=== PATIENT | male | born 1980 | race Caucasian/White ===

== ENCOUNTER 2022-01-15 11:27 | Observation (INO) | payer BC, SELFPAY ==
[2022-01-15] VITALS (21 sets, daily range): BP systolic 105–143; BP diastolic 64–109; PULSE 97–117; RESP 16–20; TEMP 36.4–36.8; O2SAT 92–97; BMI 40.6; BMI 41.2
--- OUTSIDE RECORDS SUMMARY | 2022-01-15 12:22 | XMS_ITS ---
:1980 Author Care Team Providers Name Role Phone Jerry Dale Primary Care Provider Unavailable Allergies None recorded. Medications Name Status Start Date Stop Date ? ? accu-chek kit guide Active ? Not availabl e Accu-Chek Fastclix Lancet Drum Active ? N ot available Accu-Chek Guide L1-L2 Control Solution Active ? Not available Accu-Chek Guide test strips Active ? Not available atorvastatin 40 mg tablet Active ? Not av ailable cephalexin 500 mg capsule Active ? Not av ailable Levemir FlexTouch U-100 Insulin 100 unit/mL (3 mL) Active ? Not available subcutaneous pen metformin 1,000 mg tablet Active ? Not av ailable 1 po BID with meals Novolog Flexpen U-100 Insulin aspart 100 unit/mL (3 mL) Active ? Not available subcutaneous Problems None recorded. Procedures None recorded. Results Lab Results None recorded. Past Encounters None recorded. Social History None recorded. Vaccine List None recorded. Plan of Care Reminders Provider Appointments None recorded. ? ? Lab None recorded. ? ? Referral None recorded. ? ? Procedures None recorded. ? ? Surgeries None recorded. ? ? Imaging None recorded. ? ? Vitals Blood Pressure 131/82 mm[Hg]
[2022-01-15 12:27] LABS: HCO3 VBG 22 mmol/L (21-28); Lactate* 1.7 mmol/L (0.5-1.9); PCO2 VBG 37 mmHG (40-50); PO2 VBG 61.8 mmHG (25-47); pH VBG 7.373 (7.32-7.43)
[2022-01-15 12:28] LABS: Basophils Absolute Auto 0.05 K/uL (0.00-0.30); Basophils Percent Auto 0.5 % (0.0-3.0); Eosinophils Absolute Auto 0.07 K/uL (0.00-0.50); Eosinophils Percent Auto 0.7 % (0.0-7.0); Hematocrit 52.3 % (37.0-53.0); Hemoglobin* 17.7 gm/dL (13.5-17.5); Immature Granulocytes Abs Auto 0.06 K/uL (0.00-0.30); Lymphocytes Absolute Auto 3.32 K/uL (0.90-2.90); Lymphocytes Percent Auto 32.6 % (20-44); Mean Corpuscular HGB Conc 34 gm/dL (32-36); Mean Corpuscular Hemoglobin 29 pg (26-34); Mean Corpuscular Volume 84 fL (80-100); Monocytes Percent Auto 5.1 % (0.0-11.0); Neutrophils Absolute Auto 6.17 K/uL (1.7-7.0); Neutrophils Percent Auto 60.5 % (42.0-72.0); Platelet Count* 262 K/uL (140-440); RDW Coefficient of Variation % 12.8 % (11.5-15.5); White Blood Count* 10.19 K/uL (4.50-11.00)
[2022-01-15 12:34] LABS: Appearance Urine Clear (Clear); Bilirubin Urine Negative (Negative); Blood Urine Negative (Negative); Color Urine Yellow (Yellow); Glucose Urine 3+ (Negative); Ketones Urine 2+ (Negative); Leukocyte Esterase Urine Negative (Negative); Nitrite Urine Negative (Negative); Protein Urine Negative (Negative); Specific Gravity Urine <= 1.005 (1.000-1.030); Urobilinogen Urine 0.2 (0.2-1.0)
[2022-01-15 12:34] LABS: Slide Review Reflex No
--- NOTE | 2022-01-15 12:45 | ED_ITS ---
HPI - General Adult General Chief complaint: Diabetic Related Problem Stated complaint: Diabetic/Dizzy/Light headed/Abd Pain Time Seen by Provider: 01/15/22 11:52 Source: patient Mode of arrival: ambulatory Limitations: no limitations History of Present Illness HPI narrative: 41-year-old male coming in today not feeling well. States that he feels very tired lightheaded. States that for the last 2 weeks his glucometer at home has been reading ?high?. He states that he does have a history of type 2 diabetes and was on insulin until 2020 when he was diagnosed with COVID-19 and required intubation and ICU care. He states that he was intubated for a month and when he was discharged home he no longer needed insulin because he lost a bunch of weight. He was taken off all of his diabetic medication until September of this year when he was restarted on metformin. He states that he has a very tough job and he has been living in a hotel without a kitchen so he eats whatever he can has no time or ability to prepare healthy meals. He has gained a lot of weight back. And now, again, for the last 2 weeks his sugars have been too high for the glucose meter to read. He denies chest pain or shortness of breath. He has crampy abdominal discomfort on and off with some loose stools. No pain with urination. No headache or blurry vision. no fevers or chills. Related Data Home Medications Medication Instructions Recorded Confirmed atorvastatin 10 mg tablet mg 01/15/22 escitalopram oxalate 20 mg tablet mg 01/15/22 lisinopril 2.5 mg tablet mg 01/15/22 metformin 500 mg tablet,extended mg PO 01/15/22 release 24 hr Allergies Allergy/AdvReac Type Severity Reaction Status Date / Time No Known Drug Allergies Allergy Verified 01/15/22 11:45 Review of Systems Status of ROS: Reports: 10 or more systems reviewed and unremarkable except as noted in History and below [facility] Social History Smoking Status: Never smoker Do you use any of these nicotine containing products: None How often do you have a drink containing alcohol: never How often do you have six or more drinks on one occasion: Never AUDIT-C Alcohol total score: 0 Non-prescribed substance use: denies use service: No Exam Narrative: Exam Narrative: Overweight, well-developed patient in no acute distress. Alert and oriented. Answers questions appropriately. Mood and affect are appropriate. Thoughts are goal oriented and rational. No tangential or magical thinking noted. Patient speaks in full sentences without needing to catch their breath. HEENT: Normocephalic atraumatic. Pupils are equally round reactive to light. Extraocular muscles are intact. Conjunctivae are moist without any icterus noted. Moist mucous membranes. Posterior pharynx is normal. Neck is soft without any lymphadenopathy or thyromegaly. No masses are appreciated. Cardiovascular: Patient is tachycardic at a pulse of 117, regular rhythm. Lungs: Clear to auscultation bilaterally no wheezes rhonchi or rales are appreciated. Patient takes deep breaths without any discomfort. Abdomen: Soft and nontender nondistended with normal bowel sounds. No guarding or rebound. No masses or organomegaly appreciated. Extremities: Bilateral lower extremities are without edema. Normal DP and PT pulses. Skin: Well perfused without any obvious rashes. Const: Vital Signs, click to edit/add: Vital Signs - 24 hr 01/15/22 11:45 01/15/22 12:20 01/15/22 12:23 Temperature 97.6 F Pulse Rate 108 H Pulse Rate [Right Pulse Oximeter] 117 H Respiratory Rate 18 Blood Pressure Blood Pressure [Ri ght Upper Arm] 127/91 H Pulse Oximetry 94 93 95 Oxygen Delivery Me thod Room Air 01/15/22 12:30 01/15/22 12:31 01/15/22 12:32 Temperature Pulse Rate 105 H 104 H 106 H Pulse Rate [Right Pulse Oximeter] Respiratory Rate Blood Pressure 138/85 Blood Pressure [Ri ght Upper Arm] Pulse Oximetry 95 94 95 Oxygen Delivery Me thod 01/15/22 13:00 01/15/22 13:01 01/15/22 13:30 Temperature Pulse Rate 104 H 106 H 102 H Pulse Rate [Right Pulse Oximeter] Respiratory Rate Blood Pressure 129/109 H Blood Pressure [Ri ght Upper Arm] Pulse Oximetry 93 93 92 Oxygen Delivery Me thod 01/15/22 13:31 01/15/22 14:00 01/15/22 14:01 Temperature Pulse Rate 101 H 106 H 108 H Pulse Rate [Right Pulse Oximeter] Respiratory Rate Blood Pressure 118/85 122/77 Blood Pressure [Ri ght Upper Arm] Pulse Oximetry 92 95 97 Oxygen Delivery Me thod Course Course Hospital Course: Patient received a L of normal saline right away and a 2 L was started. Labs showing a glucose greater than 600, hyponatremia. CO2 just slightly low at 18 but his venous pH normal. Patient given 12 unit insulin bolus. EKG showing sinus tachycardia with a pulse of 106 after a L of normal saline. otherwise no other abnormality. Vital Signs Vital signs: Initial Vital Signs Temperature 97.6 F 01/15/22 11:45 Temperature Source Temporal Artery Scan 01/15/22 11:45 Pulse Rate 117 H 01/15/22 11:45 Respiratory Rate 18 01/15/22 11:45 Blood Pressure 127/91 H 01/15/22 11:45 Blood Pressure Mean 103 01/15/22 11:45 Blood Pressure Position Sitting 01/15/22 11:45 Pulse Oximetry 94 01/15/22 11:45 Oxygen Delivery Method 01/15/22 11:45 Vital Signs Temperature 97.6 F 01/15/22 11:45 Pulse Rate 117 H 01/15/22 11:45 Respiratory Rate 18 01/15/22 11:45 Blood Pressure 127/91 H 01/15/22 11:45 Pulse Oximetry 94 01/15/22 11:45 Oxygen Delivery Method 01/15/22 11:45 Temperature 97.6 F 01/15/22 11:45 Pulse Rate 108 H 01/15/22 14:01 Respiratory Rate 18 01/15/22 11:45 Blood Pressure 122/77 01/15/22 14:01 Pulse Oximetry 97 01/15/22 14:01 Oxygen Delivery Method 01/15/22 11:45 Medical Decision Making [facility] Narrative Medical decision making narrative: 41-year-old male with symptomatic hyperglycemia, hyponatremia. Patient will be admitted for further management. Medical Records Medical records reviewed: Yes I reviewed the patient's medical records Lab Data Lab results reviewed: Yes I reviewed the patient's lab results Labs: Lab Results 01/15/22 01/15/22 01/15/22 Range/Units 12:10 12:10 12:10 WBC 10.19 (4.50-11.00) K/uL RBC 6.20 H (4.30-5.90) m/uL Hgb 17.7 H (13.5-17.5) gm/dL Hct 52.3 (37.0-53.0) % MCV 84 (80-100) fL MCH 29 (26-34) pg MCHC 34 (32-36) gm/dL RDW Coeff of Kinga 12.8 (11.5-15.5) % Plt Count 262 (140-440) K/uL Neut % (Auto) 60.5 (42.0-72.0) % Lymph % (Auto) 32.6 (20-44) % Jessamine % (Auto) 5.1 (0.0-11.0) % Eos % (Auto) 0.7 (0.0-7.0) % Baso % (Auto) 0.5 (0.0-3.0) % Neut # (Auto) 6.17 (1.7-7.0) K/uL Lymph # (Auto) 3.32 H (0.90-2.90) K/uL Jessamine # (Auto) 0.50 (0.00-0.90) K/UL Eos # (Auto) 0.07 (0.00-0.50) K/uL Baso # (Auto) 0.05 (0.00-0.30) K/uL Abs Immat Gran (auto) 0.06 (0.00-0.30) K/uL ESR 7 (2-15) mm/hr VBG pH (7.32-7.43) VBG pCO2 (40-50) mmHG VBG pO2 (25-47) mmHG VBG HCO3 (21-28) mmol/L Sodium 130 L (135-149) mmol/L Potassium 4.9 (3.6-5.1) mmol/L Chloride 94 L (96-114) mmol/L Carbon Dioxide 18 L (20-32) mmol/L BUN 19 (5-24) mg/dL Creatinine 0.7 (0.5-1.5) mg/dL Estimated Creat Clear 140.28 Estimated GFR 119 ml/min Glucose 682 H* (60-115) mg/dL Lactate (0.5-1.9) mmol/L Calcium 9.8 (8.4-10.6) mg/dL Magnesium 1.9 (1.5-2.6) mg/dL Total Bilirubin 0.8 (0.1-1.5) mg/dL Direct Bilirubin 0.3 (0.0-0.5) mg/dL AST 51 H (12-35) U/L ALT 86 H (4-50) U/L Alkaline Phosphatase 186 H (40-150) U/L Troponin I < 0.01 L (0.01-0.04) ng/mL C-Reactive Protein 1.2 H (0.5-1.0) mg/dL Total Protein 7.8 (6.0-8.3) g/dL Albumin 4.8 (3.3-5.0) g/dL Urine Color (Yellow) Urine Appearance (Clear) Urine pH (5.0-8.5) Ur Specific Helper (1.000-1.030) Urine Protein (Negative) Urine Glucose (UA) (Negative) Urine Ketones (Negative) Urine Blood (Negative) Urine Nitrite (Negative) Urine Bilirubin (Negative) Urine Urobilinogen (0.2-1.0) Ur Leukocyte Esterase (Negative) Urine RBC (0-2) Urine WBC (0-5) Ur Squamous Epith Cells (None-Few) Urine Bacteria (None) SARS-CoV-2 (PCR) (Negative) 01/15/22 01/15/22 01/15/22 Range/Units 12:10 12:20 14:05 WBC (4.50-11.00) K/uL RBC (4.30-5.90) m/uL Hgb (13.5-17.5) gm/dL Hct (37.0-53.0) % MCV (80-100) fL MCH (26-34) pg MCHC (32-36) gm/dL RDW Coeff of Kinga (11.5-15.5) % Plt Count (140-440) K/uL Neut % (Auto) (42.0-72.0) % Lymph % (Auto) (20-44) % Jessamine % (Auto) (0.0-11.0) % Eos % (Auto) (0.0-7.0) % Baso % (Auto) (0.0-3.0) % Neut # (Auto) (1.7-7.0) K/uL Lymph # (Auto) (0.90-2.90) K/uL Jess[place] # (Auto) (0.00-0.90) K/UL Eos # (Auto) (0.00-0.50) K/uL Baso # (Auto) (0.00-0.30) K/uL Abs Immat Gran (auto) (0.00-0.30) K/uL ESR (2-15) mm/hr VBG pH 7.373 (7.32-7.43) VBG pCO2 37 L (40-50) mmHG VBG pO2 61.8 H (25-47) mmHG VBG HCO3 22 (21-28) mmol/L Sodium (135-149) mmol/L Potassium (3.6-5.1) mmol/L Chloride (96-114) mmol/L Carbon Dioxide (20-32) mmol/L BUN (5-24) mg/dL Creatinine (0.5-1.5) mg/dL Estimated Creat Clear Estimated GFR ml/min Glucose (60-115) mg/dL Lactate 1.7 (0.5-1.9) mmol/L Calcium (8.4-10.6) mg/dL Magnesium (1.5-2.6) mg/dL Total Bilirubin (0.1-1.5) mg/dL Direct Bilirubin (0.0-0.5) mg/dL AST (12-35) U/L ALT (4-50) U/L Alkaline Phosphatase (40-150) U/L Troponin I (0.01-0.04) ng/mL C-Reactive Protein (0.5-1.0) mg/dL Total Protein (6.0-8.3) g/dL Albumin (3.3-5.0) g/dL Urine Color Yellow (Yellow) Urine Appearance Clear (Clear) Urine pH 5.0 (5.0-8.5) Ur Specific Helper <= 1.005 (1.000-1.030) Urine Protein Negative (Negative) Urine Glucose (UA) 3+ A (Negative) Urine Ketones 2+ A (Negative) Urine Blood Negative (Negative) Urine Nitrite Negative (Negative) Urine Bilirubin Negative (Negative) Urine Urobilinogen 0.2 (0.2-1.0) Ur Leukocyte Esterase Negative (Negative) Urine RBC 0-2 (0-2) Urine WBC 0-2 (0-5) Ur Squamous Epith Cells None (None-Few) Urine Bacteria None (None) SARS-CoV-2 (PCR) Negative SARS-CoV-2 (Negative) ECG Data Attestation: I personally reviewed and interpreted this ECG as follows: (Sinus tachycardia with a pulse of 106) Discharge Plan Discharge Clinical Impression: Hyperglycemia due to type 2 diabetes mellitus, Hyponatremia Patient Disposition: Admitted As Inpatient Condition: Stable
[2022-01-15 12:52] LABS: Albumin* 4.8 g/dL (3.3-5.0); Chloride* 94 mmol/L (96-114); Potassium* 4.9 mmol/L (3.6-5.1); Sodium* 130 mmol/L (135-149)
[2022-01-15 12:54] LABS: Creatinine* 0.7 mg/dL (0.5-1.5); Est. Creatinine Clearance* 140.28; Estimated Glomerular Filt Rate 119 ml/min
[2022-01-15 12:55] LABS: Alkaline Phosphatase* 186 U/L (40-150); Aspartate Amino Transferase* 51 U/L (12-35); Bilirubin Direct* 0.3 mg/dL (0.0-0.5); Bilirubin Total* 0.8 mg/dL (0.1-1.5); Blood Urea Nitrogen* 19 mg/dL (5-24); Carbon Dioxide* 18 mmol/L (20-32); Total Protein* 7.8 g/dL (6.0-8.3)
[2022-01-15 12:56] LABS: Alanine Aminotransferase* 86 U/L (4-50); Calcium* 9.8 mg/dL (8.4-10.6); Magnesium* 1.9 mg/dL (1.5-2.6)
[2022-01-15 12:58] LABS: C Reactive Protein* 1.2 mg/dL (0.5-1.0)
[2022-01-15 12:59] LABS: RBC Urine 0-2 (0-2); WBC Urine 0-2 (0-5)
[2022-01-15] MEDS: 0.9 % SODIUM CHLORIDE 1000 ml 1,000 ML IV ×3 (13:01→16:29)
[2022-01-15 13:05] LABS: Glucose* 682 mg/dL (60-115)
--- NOTE | 2022-01-15 13:06 | ED.NURSE ---
Critical lab: glucose 682, handed to
[2022-01-15 13:09] LABS: Troponin I* < 0.01 ng/mL (0.01-0.04)
[2022-01-15 13:24] LABS: Erythrocyte SedimentationRate* 7 mm/hr (2-15)
[2022-01-15 14:44] LABS: SARS PCR* Negative SARS-CoV-2 (Negative)
[2022-01-15 15:08] LABS: Chloride* 103 mmol/L (96-114); Potassium* 4.1 mmol/L (3.6-5.1); Sodium* 138 mmol/L (135-149)
[2022-01-15 15:11] LABS: Blood Urea Nitrogen* 17 mg/dL (5-24); Carbon Dioxide* 21 mmol/L (20-32); Creatinine* 0.7 mg/dL (0.5-1.5); Est. Creatinine Clearance* 140.28; Estimated Glomerular Filt Rate 119 ml/min
[2022-01-15 15:12] LABS: Calcium* 9.2 mg/dL (8.4-10.6); Glucose* 302 mg/dL (60-115)
[2022-01-15] MEDS: ENOXAPARIN 30 MG/0.3ML INJ SUBCUT (17:17)
--- NOTE | 2022-01-15 21:30 | PM.IMHP1 ---
Hospitalist- H&P: HPI History of Present Illness Time Seen by Provider: 16:00 Date Seen: 01/15/22 Chief complaint: Diabetic/Dizzy/Light headed/Abd Pain Narrative: Felix Ingram is a 41 year old man presents with the 2 week history of increasing sense of fatigue, tiredness, polydipsia, polyphagia, nausea, decreased oral intake. Notes that his glucometer has been reading high throughout this time. Has continue to go to work but has become increasingly difficult to do so. History of diabetes mellitus type 2 on insulin and metformin. Had been taking Detemir Insulin 15 units twice daily plus at times utilizing scale. Patient acquired COVID-19 in August of 2020. During that time he lost a lot a weight. He no longer required medication to treat the diabetes afterward. Saw his primary care physician about 2 months ago at which time metformin was restarted, lisinopril was started, atorvastatin was started. Despite these efforts his condition has evolved as specified. Review of Systems Status of ROS: Reports: 10 or more systems reviewed and unremarkable except as noted in History and below Narrative: Denies angina, anginal equivalent, syncope or near syncope. Acknowledges orthostasis. Denies dyspnea at rest or paroxysmal nocturnal dyspnea or orthopnea. Denies palpitations. Has had intermittent abdominal discomfort, loose stools, and nausea without vomiting. Has been drinking as much as 32 oz of water when at work. Difficult to sleep due to frequency of urination. Has not had any skin infections. Denies any trauma or injury. No fevers, rigors, or diaphoresis. Denies heat or cold intolerance. Acknowledges chronic right thigh dysesthesia since COVID-19 in August of 2020. Has had longstanding evolving bilateral lower extremity peripheral neuropathy. Designates his brother as power of supervisor machine setter for health should that be required. Requests full resuscitation in the event of cardiopulmonary demise. [facility] Medical History (Updated 01/15/22 @ 21:47 by Sonido Pimentel MD) Abnormal liver function tests Acute hypoxemic respiratory failure due to COVID-19 Acute respiratory distress syndrome (ARDS) due to 2019 novel coronavirus Alcohol abuse Closed dislocation of shoulder Diabetes mellitus type 2 in obese Gastroesophageal reflux disease Generalized anxiety disorder Humerus fracture Hyperglycemic hyperosmolar nonketotic coma Inadequate housing Major depressive disorder, recurrent, moderate Migraine headache Mixed hyperlipidemia due to type 2 diabetes mellitus Morbid obesity with BMI of 40.0-44.9, adult Newly diagnosed diabetes Pneumonia due to COVID-19 virus Family History Maternal Grandmother Cancer Mother Cancer Father Diabetes Social History Highest level of school completed/degree received: high school graduate Smoking Status: Never smoker Do you use any of these nicotine containing products: None Second hand tobacco smoke exposure: No How often do you have a drink containing alcohol: never How often do you have six or more drinks on one occasion: Never AUDIT-C Alcohol total score: 0 Non-prescribed substance use: denies use Caffeine: No service: No Meds Home Medications and Allergies Home Medications Medication Instructions Recorded Confirmed Type atorvastatin 10 mg tablet 10 mg PO HS 01/15/22 01/15/22 History escitalopram oxalate 20 mg tablet 20 mg PO DAILY 01/15/22 01/15/22 History lisinopril 2.5 mg tablet 2.5 mg PO HS 01/15/22 01/15/22 History metformin 500 mg tablet,extended 2,000 mg PO DAILY 01/15/22 01/15/22 History release 24 hr Allergies Allergy/AdvReac Type Severity Reaction Status Date / Time No Known Drug Allergies Allergy Verified 01/15/22 11:45 Exam Narrative: Exam Narrative: Alert, oriented to self, place, time, situation. Appears tired but nevertheless comfortable and in no acute distress. Noteworthy is the fact that I do not smell ketones in the room with him. No obvious focal motor neurologic deficits. Cranial nerves 3-12 grossly normal. Hearing and vision are grossly intact. Midline nasal septum. Dry buccal mucosa. Dentition in fair repair. Midline trachea, normal thyroid, no JVD, hepatojugular reflux, or carotid bruits. No lymphadenopathy in the pre or postauricular chains, anterior-posterior cervical chains, submandibular or submental fossa, supra or infraclavicular fossa, or axilla bilaterally. Lungs are clear to auscultation without wheezing, rhonchi, or rales. Chest wall excursions are full. Heart tones with regular rhythm, normal S1-S2, without murmur, gallop, or rub. Abdomen is obese with active bowel sounds, soft, nontender. No rebound or guarding. Skin is warm, dry, intact. No obvious petechiae, jaundice, cyanosis, or rashes. Does have minimal erythema on the left toe medial aspect but this is nontender. May have an evolving paronychia but it is not evident at this time. Independent transfer, station, and gait. Const: Vital Signs, click to edit/add: Vital Signs - 24 hr 01/15/22 11:45 01/15/22 12:20 01/15/22 12:23 Temperature 97.6 F Pulse Rate 108 H Pulse Rate [Pulse Oximeter] Pulse Rate [Right Pulse Oximeter] 117 H Pulse Rate [orthos tatic lying Pulse Oximeter] Pulse Rate [orthos tatic sitting Puls e Oximeter] Pulse Rate [orthos tatic standing Pul se Oximeter] Respiratory Rate 18 Blood Pressure Blood Pressure [Ri ght Arm] Blood Pressure [Ri ght Upper Arm] 127/91 H Blood Pressure [or thostatic lying Ri ght Arm] Blood Pressure [or thostatic sitting Right Arm] Blood Pressure [or thostatic standing Right Arm] Pulse Oximetry 94 93 95 Oxygen Delivery Me thod Room Air 01/15/22 12:30 01/15/22 12:31 01/15/22 12:32 Temperature Pulse Rate 105 H 104 H 106 H Pulse Rate [Pulse Oximeter] Pulse Rate [Right Pulse Oximeter] Pulse Rate [orthos tatic lying Pulse Oximeter] Pulse Rate [orthos tatic sitting Puls e Oximeter] Pulse Rate [orthos tatic standing Pul se Oximeter] Respiratory Rate Blood Pressure 138/85 Blood Pressure [Ri ght Arm] Blood Pressure [Ri ght Upper Arm] Blood Pressure [or thostatic lying Ri ght Arm] Blood Pressure [or thostatic sitting Right Arm] Blood Pressure [or thostatic standing Right Arm] Pulse Oximetry 95 94 95 Oxygen Delivery Me thod 01/15/22 13:00 01/15/22 13:01 01/15/22 13:30 Temperature Pulse Rate 104 H 106 H 102 H Pulse Rate [Pulse Oximeter] Pulse Rate [Right Pulse Oximeter] Pulse Rate [orthos tatic lying Pulse Oximeter] Pulse Rate [orthos tatic sitting Puls e Oximeter] Pulse Rate [orthos tatic standing Pul se Oximeter] Respiratory Rate Blood Pressure 129/109 H Blood Pressure [Ri ght Arm] Blood Pressure [Ri ght Upper Arm] Blood Pressure [or thostatic lying Ri ght Arm] Blood Pressure [or thostatic sitting Right Arm] Blood Pressure [or thostatic standing Right Arm] Pulse Oximetry 93 93 92 Oxygen Delivery Me thod 01/15/22 13:31 01/15/22 14:00 01/15/22 14:01 Temperature Pulse Rate 101 H 106 H 108 H Pulse Rate [Pulse Oximeter] Pulse Rate [Right Pulse Oximeter] Pulse Rate [orthos tatic lying Pulse Oximeter] Pulse Rate [orthos tatic sitting Puls e Oximeter] Pulse Rate [orthos tatic standing Pul se Oximeter] Respiratory Rate Blood Pressure 118/85 122/77 Blood Pressure [Ri ght Arm] Blood Pressure [Ri ght Upper Arm] Blood Pressure [or thostatic lying Ri ght Arm] Blood Pressure [or thostatic sitting Right Arm] Blood Pressure [or thostatic standing Right Arm] Pulse Oximetry 92 95 97 Oxygen Delivery Me thod 01/15/22 14:02 01/15/22 14:30 01/15/22 14:31 Temperature Pulse Rate 109 H 108 H 109 H Pulse Rate [Pulse Oximeter] Pulse Rate [Right Pulse Oximeter] Pulse Rate [orthos tatic lying Pulse Oximeter] Pulse Rate [orthos tatic sitting Puls e Oximeter] Pulse Rate [orthos tatic standing Pul se Oximeter] Respiratory Rate Blood Pressure 105/72 Blood Pressure [Ri ght Arm] Blood Pressure [Ri ght Upper Arm] Blood Pressure [or thostatic lying Ri ght Arm] Blood Pressure [or thostatic sitting Right Arm] Blood Pressure [or thostatic standing Right Arm] Pulse Oximetry 97 95 95 Oxygen Delivery Me thod 01/15/22 15:00 01/15/22 15:01 01/15/22 15:24 Temperature 97.5 F L Pulse Rate 105 H 105 H Pulse Rate [Pulse Oximeter] 98 Pulse Rate [Right Pulse Oximeter] Pulse Rate [orthos tatic lying Pulse Oximeter] Pulse Rate [orthos tatic sitting Puls e Oximeter] Pulse Rate [orthos tatic standing Pul se Oximeter] Respiratory Rate 16 Blood Pressure 117/78 Blood Pressure [Ri ght Arm] 143/87 H Blood Pressure [Ri ght Upper Arm] Blood Pressure [or thostatic lying Ri ght Arm] Blood Pressure [or thostatic sitting Right Arm] Blood Pressure [or thostatic standing Right Arm] Pulse Oximetry 93 93 95 Oxygen Delivery Me thod Room Air 01/15/22 16:06 01/15/22 19:00 Temperature 98.1 F Pulse Rate Pulse Rate [Pulse Oximeter] 98 Pulse Rate [Right Pulse Oximeter] Pulse Rate [orthos tatic lying Pulse Oximeter] 98 Pulse Rate [orthos tatic sitting Puls e Oximeter] 103 H Pulse Rate [orthos tatic standing Pul se Oximeter] 110 H Respiratory Rate 20 Blood Pressure Blood Pressure [Ri ght Arm] 122/64 Blood Pressure [Ri ght Upper Arm] Blood Pressure [or thostatic lying Ri ght Arm] 143/87 H Blood Pressure [or thostatic sitting Right Arm] 134/94 H Blood Pressure [or thostatic standing Right Arm] 118/93 H Pulse Oximetry 94 Oxygen Delivery Me thod Room Air Documenting provider has reviewed patient's vital signs: yes Hospitalist - H&P: Result Labs Labs: Short CBC 01/15/22 Range/Units 12:10 WBC 10.19 (4.50-11.00) K/uL Hgb 17.7 H (13.5-17.5) gm/dL Hct 52.3 (37.0-53.0) % Plt Count 262 (140-440) K/uL BMP 01/15/22 01/15/22 12:10 14:50 Sodium 130 L 138 Potassium 4.9 4.1 Chloride 94 L 103 Carbon Dioxide 18 L 21 BUN 19 17 Creatinine 0.7 0.7 Glucose 682 H* 302 H Calcium 9.8 9.2 Cardiac Enzymes 01/15/22 Range/Units 12:10 Troponin I < 0.01 L (0.01-0.04) ng/mL Liver Function 01/15/22 Range/Units 12:10 Total Bilirubin 0.8 (0.1-1.5) mg/dL Direct Bilirubin 0.3 (0.0-0.5) mg/dL AST 51 H (12-35) U/L ALT 86 H (4-50) U/L Alkaline Phosphatase 186 H (40-150) U/L Albumin 4.8 (3.3-5.0) g/dL Urine 01/15/22 Range/Units 12:20 Urine Color Yellow (Yellow) Urine Appearance Clear (Clear) Urine pH 5.0 (5.0-8.5) Ur Specific [place] <= 1.005 (1.000-1.030) Urine Protein Negative (Negative) Urine Glucose (UA) 3+ A (Negative) Assessment and Plan Assessment and plan (1) Hyperosmolar non-ketotic state in patient with type 2 diabetes mellitus: Status: Acute (2) Hyperglycemia due to type 2 diabetes mellitus: Status: Acute (3) Diabetes mellitus type 2 in obese: Status: Acute (4) Morbid obesity with BMI of 40.0-44.9, adult: Status: Acute (5) Pseudohyponatremia: Status: Acute (6) Dehydration: Status: Acute (7) Orthostasis: Status: Acute (8) Abnormal liver function tests: Status: Acute Plan 1. Reviewed impressions and plans and recommendations with patient. 2. Answered his questions to satisfaction. 3. IV fluids for rehydration. 4. Restart his insulin. We use the Detemir as well as sliding scale aspart insulin for now. 5. Will restart metformin tomorrow. 6. Will hold off on his statin therapy given his abnormal liver function studies. Will obtain ultrasound of the abdomen tomorrow. 7. Continue with escitalopram for management of his anxiety and depression. 8. Dietary consultation. 9. Will certainly warrant follow-up with his primary care physician in the near future. 10. Continue to monitor labs. Will check hemoglobin A1c tomorrow. 11. Patient agreeable to above stated plans and recommendations.
--- NOTE | 2022-01-15 22:51 | PC.NURSE ---
Shift [id number]- Patient is admitted to floor at start of shift. He denies pain. He is up ad petra. Appetite is intact. Denies symptoms of hyperglycemia.
[2022-01-16 03:00] VITALS: BP 137/78; PULSE 83; RESP 14; TEMP 36.8; O2SAT 94
--- NOTE | 2022-01-16 05:46 | PC.NURSE ---
[id number] Pt slept well during night, no signs of hyper/hypoglycemia.
[2022-01-16 06:58] LABS: HCO3 VBG 28 mmol/L (21-28); PCO2 VBG 49 mmHG (40-50); PO2 VBG 22.5 mmHG (25-47); pH VBG 7.358 (7.32-7.43)
[2022-01-16 07:13] LABS: Hemoglobin* 16.7 gm/dL (13.5-17.5); Mean Corpuscular HGB Conc 33 gm/dL (32-36); Mean Corpuscular Hemoglobin 28 pg (26-34); Mean Corpuscular Volume 86 fL (80-100); Platelet Count* 236 K/uL (140-440)
[2022-01-16 07:23] LABS: Chloride* 100 mmol/L (96-114); Slide Review Reflex No
[2022-01-16 07:24] LABS: Albumin* 4.3 g/dL (3.3-5.0); Potassium* 4.7 mmol/L (3.6-5.1); Sodium* 135 mmol/L (135-149)
[2022-01-16 07:27] LABS: Alanine Aminotransferase* 110 U/L (4-50); Alkaline Phosphatase* 110 U/L (40-150); Aspartate Amino Transferase* 111 U/L (12-35); Bilirubin Total* 0.9 mg/dL (0.1-1.5); Blood Urea Nitrogen* 13 mg/dL (5-24); Carbon Dioxide* 24 mmol/L (20-32); Creatinine* 0.6 mg/dL (0.5-1.5); Est. Creatinine Clearance* 163.66; Estimated Glomerular Filt Rate 125 ml/min; Gamma Glutamyl Transpeptidase* 71 U/L (8-55); Glucose* 277 mg/dL (60-115); Total Protein* 7.1 g/dL (6.0-8.3)
[2022-01-16 07:30] LABS: Hemoglobin A1C* 12.16 % (0-5.6)
[2022-01-16 08:10] VITALS: BP 104/67; PULSE 90; RESP 16; TEMP 36.7; O2SAT 93
[2022-01-16 08:15] VITALS: PULSE 90; RESP 16
--- NOTE | 2022-01-16 10:15 | CRLHL7_ITS ---
For Patients: As a result of the Century Cures Act, medical imaging exams and procedure reports are released immediately into your electronic medical record. You may view this report before your referring provider. If you have questions, please contact your health care provider. INDICATION: Elevated LFTs COMPARISON: 12/09/2020 TECHNIQUE: Real time strange scale imaging and color Doppler analysis was performed of the right upper quadrant. FINDINGS: Examination is limited by overlying bowel gas. The liver is upper limits of normal in size measuring 19.4 cm. The hepatic echotexture is diffusely coarsened and hyperechoic. No large volume ascites. Right kidney appears normal and measures 13.6 cm. Nonvisualization of the gallbladder, pancreas and IVC. No proximal abdominal aortic aneurysm. IMPRESSION: Limited exam. Diffuse hepatic steatosis, at least moderate. This has developed since the prior exam. Dictated by Cordell Soliz MD @ 01/16/2022 11:09:17 AM (Electronically Signed)
[2022-01-16] MEDS: METFORMIN ER 500 MG 2000 MG PO (10:53)
[2022-01-16] MEDS: ESCITALOPRAM 10 MG TABLET 20 MG PO (10:53)
--- NOTE | 2022-01-16 10:57 | NUTR.NU ---
RDN with MD consult for Diabetic Teaching related to hyperglycemia with Type 2 Diabetes. RDN visited with patient whom agreed to diet education. He reports never having formal diet education related to diabetes. Diabetic diet education provided. He reports trying to lose weight recently. He has been drinking protein shakes and joined a weight loss group. Discussed basics of carbohydrate counting including sources of carbohydrates, serving sizes, and label reading. Discussed using the plate method for carbohydrate-controlled, balanced meals that include ? plate non-starchy vegetables, ? plate protein, and 3-4 servings of carbohydrates per meal (fruit, whole grains, legumes, milk, yogurt) and 1-2 per snack. Handouts provided to support discussion. RDN contact information provided and encouraged patient to call with questions. RDN encouraged and recommended patient to visit with RDN as an outpatient when he is ready. RDN to follow up as needed.
[2022-01-16 11:42] VITALS: BP 118/86; PULSE 104; RESP 18; TEMP 36.7; O2SAT 96
--- NOTE | 2022-01-16 13:04 | PC.NURSE ---
Discharge. pt has been pleasant. no pain. he is up ab petra. he is eating and drinking and voiding. went over discharge with pt. went over medications appointments, instructions and educations. pt went over and signed personal belonging sheet. pt packed up all belongings and paper work he walked out to his car.
--- NOTE | 2022-01-16 15:10 | P.DS_ITS ---
DS: Providers Provider Date Seen: 01/16/22 Date of admission: 01/15/22 15:07 Primary care physician: Cammy Gonzalez CNP Admitting Clinician: Sonido Pimentel MD Consults: 01/15/22 16:01 Consult to Nutrition [CONS] Routine Comment: Reason for consult:: Diabetic Teaching Attending Physician on discharge: Kate Padilla MD Date of Discharge: 01/16/22 DS: Diagnosis Discharge Diagnosis (1) Hyperglycemia due to type 2 diabetes mellitus: Status: Acute (2) Morbid obesity with BMI of 40.0-44.9, adult: Status: Acute (3) Fatty liver: Status: Acute DS: Summary Hospital Course Hospital Course: HOSPITALIST DISCHARGE SUMMARY ATTENDING PHYSICIAN: Monik Padilla MD FINAL DIAGNOSIS: Type 2 diabetes, insulin requiring Morbid obesity Fatty liver Hypertension Hyperlipidemia HOSPITAL FOLLOWUP ISSUES: 1. PCP follow-up for blood glucose management 2. Flash or CGM for better insight and compliance REFERRALS WHILE ADMITTED: None REFERRALS AFTER DISCHARGE: None BRIEF HOSPITAL COURSE: Felix is a 41-year-old who was admitted overnight secondary to symptomatic hyperglycemia. We manage his blood sugars with insulin. He did not require insulin drip. He did not have DKA or nonketotic acidosis. By morning he was clear-headed, tolerating a regular diet and comfortable with our insulin instructions and discharge plan. His A1c is greater than 12. His discharge criteria included 20 units of insulin detemir b.i.d. and 8 units of NovoLog with meals. Continue the metformin. Follow-up with PCP. VITAL SIGN, MEDICATION, LAB/MICRO, IMAGING SUMMARY (full details available in account tabs or by records request) DISCHARGE MEDICATIONS: See Reconciled list REVIEW OF SYSTEMS No new chest pain or dyspnea Pain controlled No voiding difficulties Tolerating diet challenge PHYSICAL EXAM: CONSTITUTIONAL: alert; insightful VITAL SIGNS: see record. HEENT: Normocephalic, atraumatic. PERRL, EOMI, conjunctivae pink, no scleral icterus. Ears and nose externally normal. Pharynx normal. NECK: No JVD. No carotid bruit, no thyromegaly, no adenopathy. CHEST: Clear to auscultation bilaterally. HEART: S1 and S2 normal. Edema ABDOMEN: Soft, nontender. Normal bowel sounds. MUSCULOSKELETAL: No gross joint deformity or swelling. NEURO: Cranial nerves intact. Grossly intact. No asymmetric findings. SKIN: No rashes, petechiae, concerning changes PSYCHIATRIC: Mood euthymic. DISPOSITION: home; self care Time spent on discharge 37 minutes. Status at Discharge Functional status at discharge: independent ambulation Overall status at discharge: patient is progressing back to baseline Time Spent with Patient Time attestation: Total time spent providing and/or coordinating discharge services: Time spent: Greater than 30 minutes Exam Const: Vital Signs, click to edit/add: Vital Signs - 24 hr 01/15/22 15:24 01/15/22 16:06 01/15/22 19:00 Temperature 97.5 F L 98.1 F Pulse Rate [Pulse Oximeter] 98 98 Pulse Rate [orthos tatic lying Pulse Oximeter] 98 Pulse Rate [orthos tatic sitting Puls e Oximeter] 103 H Pulse Rate [orthos tatic standing Pul se Oximeter] 110 H Respiratory Rate 16 20 Blood Pressure [Ri ght Arm] 143/87 H 122/64 Blood Pressure [or thostatic lying Ri ght Arm] 143/87 H Blood Pressure [or thostatic sitting Right Arm] 134/94 H Blood Pressure [or thostatic standing Right Arm] 118/93 H Pulse Oximetry 95 94 Oxygen Delivery Me thod Room Air Room Air 01/15/22 23:00 01/16/22 03:00 01/16/22 08:10 Temperature 98.2 F 98.2 F 98.0 F Pulse Rate [Pulse Oximeter] 97 83 90 Pulse Rate [orthos tatic lying Pulse Oximeter] Pulse Rate [orthos tatic sitting Puls e Oximeter] Pulse Rate [orthos tatic standing Pul se Oximeter] Respiratory Rate 20 14 16 Blood Pressure [Ri ght Arm] 117/81 137/78 104/67 Blood Pressure [or thostatic lying Ri ght Arm] Blood Pressure [or thostatic sitting Right Arm] Blood Pressure [or thostatic standing Right Arm] Pulse Oximetry 97 94 93 Oxygen Delivery Me thod Room Air Room Air Room Air 01/16/22 08:15 01/16/22 11:42 Temperature 98.1 F Pulse Rate [Pulse Oximeter] 90 104 H Pulse Rate [orthos tatic lying Pulse Oximeter] Pulse Rate [orthos tatic sitting Puls e Oximeter] Pulse Rate [orthos tatic standing Pul se Oximeter] Respiratory Rate 16 18 Blood Pressure [Ri ght Arm] 118/86 Blood Pressure [or thostatic lying Ri ght Arm] Blood Pressure [or thostatic sitting Right Arm] Blood Pressure [or thostatic standing Right Arm] Pulse Oximetry 96 Oxygen Delivery Me thod Room Air DS: Data Data Completed and Pending Labs on day of discharge: Labs from last 24 hours 01/16/22 01/16/22 01/16/22 06:44 06:44 06:44 WBC RBC Hgb Hct MCV MCH MCHC Plt Count VBG pH 7.358 VBG pCO2 49 VBG pO2 22.5 L VBG HCO3 28 Sodium 135 Potassium 4.7 Chloride 100 Carbon Dioxide 24 BUN 13 Creatinine 0.6 Estimated Creat Clear 163.66 Estimated GFR 125 Glucose 277 H Hemoglobin A1c 12.16 H Lactate 1.0 Calcium 9.0 Total Bilirubin 0.9 GGT 71 H AST 111 H ALT 110 H Alkaline Phosphatase 110 Total Protein 7.1 Albumin 4.3 01/16/22 01/15/22 06:44 14:50 WBC 7.40 RBC 5.90 Hgb 16.7 Hct 51.0 MCV 86 MCH 28 MCHC 33 Plt Count 236 VBG pH VBG pCO2 VBG pO2 VBG HCO3 Sodium 138 Potassium 4.1 Chloride 103 Carbon Dioxide 21 BUN 17 Creatinine 0.7 Estimated Creat Clear 140.28 Estimated GFR 119 Glucose 302 H Hemoglobin A1c Lactate Calcium 9.2 Total Bilirubin GGT AST ALT Alkaline Phosphatase Total Protein Albumin Discharge Plan Discharge Disposition: Home, Self-Care Date of Admission: 01/15/22 15:07 Attending Provider on Discharge: Monik Padilla Primary Care Provider: Cammy Gonzalez Condition: Stable Anticipated Discharge Date/Time: 01/16/22 11:51 Discharge Medications: New insulin aspart U-100 [Novolog Flexpen U-100 Insulin] 100 unit/mL (3 mL) Insulin Pen 8 unit subcut TIDWMEAL Qty: 15 5RF insulin detemir U-100 100 unit/mL (3 mL) insulin pen 20 unit subcut BID Qty: 15 3RF (DME) lancets Misc See Rx Instructions .Route Qty: 100 5RF Rx Instructions: As directed (DME) FreeStyle Nadira 14 Day [place] Misc See Rx Instructions .Route Qty: 1 5RF Rx Instructions: As directed (DME) FreeStyle Nadira 14 Day Sensor Kit See Rx Instructions .Route Qty: 1 4RF Rx Instructions: As directed (DME) pen needle, diabetic 31 gauge x 3/16 needle See Rx Instructions .Route Qty: 100 3RF Rx Instructions: As directed (DME) Test Strips Misc See Rx Instructions .Route Qty: 1 6RF Rx Instructions: As directed Continued atorvastatin 10 mg tablet 10 mg PO HS Label Comments: TAKE ONE TABLET BY MOUTH AT BEDTIME. metformin 500 mg tablet extended release 24 hr 2,000 mg PO DAILY Label Comments: TAKE FOUR TABLETS BY MOUTH DAILY WITH BREAKFAST. lisinopril 2.5 mg tablet 2.5 mg PO HS Label Comments: TAKE ONE TABLET BY MOUTH AT BEDTIME. HOLD FOR SYSTOLIC BLOOD PRESSURE (TOP NUMBER) LESS THAN 110. escitalopram oxalate 20 mg tablet 20 mg PO DAILY Label Comments: TAKE 1 TABLET (20 MG TOTAL) BY MOUTH DAILY. Discharge Orders: Discharge Order (Routine); Ordered 01/16/22 Ordered By: Monik Padilla Patient Education: Insulin Aspart, Recombinant (By injection) (NovoLOG, NovoLOG FlexPen), Insulin Detemir (By injection) (Levemir, Levemir FlexPen, Levemir..., Diabetic Hyperglycemia (DC) Additional Instructions: 1. Long acting insulin twice a day, 20 units 2. short acting insulin, 6-8 units when you eat a meal, three times a day 3. have pharmacy check mauro and give instructions on the [employer] Nadira system - but in case I have sent lancets and strips and a new glucometer. 4. continue metformin 5. I also included pen needles. Activity Level: Activity as Tolerated Discharge Diet: Diabetic Follow Up Appointments: Cammy Gonzalez, SINGLE ENDING MACHINE OPERATOR [Primary Care Provider] - 01/23/22 10:40 am ([address] [place], [place] [address] [address] ) Forms: Work/Release Restrictions, MyHealth Info Instructions
== END 2022-01-16 13:06 | disposition home or self-care (01) ==
LOC: ED 14:28 → MEDSURG 15:08
PROVIDERS: Admitting Provider Internal Medicine; Emergency Provider Family Medicine; PCP Nurse Practitioner; Visit Provider Internal Medicine
DX: E11.00 Type 2 diabetes mellitus with hyperosmolarity without nonketotic hyperglycemic-hyperosmolar coma (NKHHC) (principal); E11.65 Type 2 diabetes mellitus with hyperglycemia; E11.69 Type 2 diabetes mellitus with other specified complication; K76.0 Fatty (change of) liver, not elsewhere classified; E66.01 Morbid (severe) obesity due to excess calories; E66.9 Obesity, unspecified; Z68.41 Body mass index [BMI] 40.0-44.9, adult; I95.1 Orthostatic hypotension; R79.89 Other specified abnormal findings of blood chemistry; E86.0 Dehydration; Z79.84 Long term (current) use of oral hypoglycemic drugs; I10 Essential (primary) hypertension; E78.5 Hyperlipidemia, unspecified; E87.1 Hypo-osmolality and hyponatremia; R00.0 Tachycardia, unspecified; R53.83 Other fatigue; R42 Dizziness and giddiness; R10.9 Unspecified abdominal pain; R35.0 Frequency of micturition; R20.8 Other disturbances of skin sensation; G62.9 Polyneuropathy, unspecified
CPT/HCPCS: 36415; 76705; 80048; 80053; 80076; 81001; 82803; 82947; 82962; 82977; 83036; 83605; 83735; 84484; 85025; 85027; 85651; 86140; 87635; 93005; 94761; 96361; 96372; 99284; 99285; A9270; G0378; G0379; J1650; J7030

== ENCOUNTER 2022-04-15 21:23 | Observation (INO) | payer OTHER, BC, SELFPAY ==
[2022-04-15 21:41] VITALS: BP 148/88; PULSE 112; RESP 22; TEMP 37.1; O2SAT 95; BMI 39.1
--- NOTE | 2022-04-15 22:00 | ED_ITS ---
HPI - General Adult General Time Seen by Provider: 22:00 Date Seen: 04/15/22 Chief complaint: Diabetic Related Problem Stated complaint: diabetes above 600 Time Seen by Provider: 04/15/22 21:49 Source: patient Mode of arrival: ambulatory Limitations: no limitations History of Present Illness HPI narrative: Patient is a 42-year-old male who is in the [facility] diabetic since 2018 not of his insulin for 2 weeks. He noted his blood sugars elevated in the 600 range. Presents to the ED. He has had some frequent urination, hunger, thirst. He has been mentating well as pain breathing problem. 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 At that time he lost his apartment, now he is living in a hotel. He does have social support with his brother lives in [place]. And he does have insulin. But he was concerned his blood sugar was so high and he presented to the ED. he has been able to drink some fluids he has had regular urine output as mention, he has not had fever, chills, chest pain breathing issue. Does report some chronic chronic congestion and his COVID about. He does not recall DKA or other serious illness from his diabetes Related Data Home Medications Medication Instructions Recorded Confirmed atorvastatin 10 mg tablet 10 mg PO HS 01/15/22 04/16/22 escitalopram oxalate 20 mg tablet 20 mg PO DAILY 01/15/22 04/16/22 lisinopril 2.5 mg tablet 2.5 mg PO HS 01/15/22 04/16/22 metformin 500 mg tablet,extended 2,000 mg PO DAILY 01/15/22 04/16/22 release 24 hr Previous Rx's Medication Instructions Recorded Test Strips #1 ea 01/16/22 flash glucose scanning reader #1 ea 01/16/22 (FreeStyle Nadira 14 Day [place]) flash glucose sensor (FreeStyle #1 ea 01/16/22 Nadira 14 Day Sensor kit) insulin aspart U-100 100 unit/mL 8 unit (0.08 mL) subcut TIDWMEAL 01/16/22 (3 mL) subcutaneous pen (Novolog #15 mL FlexPen U-100 Insulin aspart) insulin detemir U-100 100 unit/mL 20 unit (0.2 mL) subcut BID #15 mL 01/16/22 (3 mL) subcutaneous pen lancets #100 ea 01/16/22 pen needle, diabetic 31 gauge x #100 ea 01/16/22 3/16 Allergies Allergy/AdvReac Type Severity Reaction Status Date / Time No Known Drug Allergies Allergy Verified 02/23/22 15:05 Review of Systems Status of ROS: Reports: 10 or more systems reviewed and unremarkable except as noted in History and below [facility] Medical History (Updated 04/16/22 @ 13:09 by Charito Maldonado MD) Acute hypoxemic respiratory failure due to COVID-19 Alcohol abuse Diabetes mellitus type 2 in obese Gastroesophageal reflux disease Hyperglycemia due to type 2 diabetes mellitus Inadequate housing Major depressive disorder, recurrent, moderate Migraine headache Mixed hyperlipidemia due to type 2 diabetes mellitus Morbid obesity with BMI of 40.0-44.9, adult Non-compliant patient Family History Maternal Grandmother Cancer Mother Cancer Father Diabetes Social History Highest level of school completed/degree received: high school graduate Smoking Status: Never smoker Do you use any of these nicotine containing products: None Second hand tobacco smoke exposure: No How often do you have a drink containing alcohol: never How often do you have six or more drinks on one occasion: Never AUDIT-C Alcohol total score: 0 Non-prescribed substance use: denies use Caffeine: No service: No Exam Narrative: Exam Narrative: Objective: Vital signs show elevated pulse of 112 adequate blood pressure O2 sat 95% on room air In general patient alert orient x3, does not smell of acetone Neck is supple Chest clear Heart rhythm regular heart murmur Abdomen obese benign nontender Extremities are no edema Neurologic nonfocal Skin warm and dry good peripheral perfusion. Const: Vital Signs, click to edit/add: Vital Signs - 24 hr 04/15/22 21:41 04/15/22 22:04 04/15/22 22:37 Temperature 98.7 F Pulse Rate [Pulse Oximeter] 112 H 97 Respiratory Rate 22 18 Blood Pressure [Ri ght Upper Arm] 148/88 H 128/78 Pulse Oximetry 95 98 95 Oxygen Delivery Me thod Room Air Room Air Course Course Hospital Course: This is a 42-year-old male with insulin-dependent type 2 diabetes mellitus came in with hyperglycemia related to medication noncompliance. He tells me that since being on a mechanical ventilator for COVID about a year ago he has had trouble remembering things and is more tired overall. More often than not he forgets to check his blood sugar and take insulin. He ran out of insulin 2 weeks ago and keeps forgetting to go get more. He did finally pick some up, but noted that his sugar was so high that the meter not give him a number and so he came to the ER. He also was feeling unwell due to the elevated blood sugar. I spoke with him about his hemoglobin A1c being so high and what that meant. Said that his primary care provider had recently retired and he has not yet established care with a new provider. When he needed insulin, different provider please send a prescription over to the pharmacy for him and he was never seen. I spoke with him about how he really needs to follow-up with a primary care provider at this point because he will need tighter control of his sugars. We discussed the potential complications of untreated or poorly treated diabetes which can include eye, kidney, heart, and circulatory complications. He noted that his father had a BKA recently because of diabetes. He has received insulin here and his blood sugars have come under 300 and he is feeling back to normal. He and I spoke at length about setting alarms so that he remembers to check his blood sugar intake his insulin. He began setting these while I was leaving the room and I asked his nurse to work with him to make sure that he has all of them set for home going. He is currently living in a hotel because he missed several rent payments while he was on a ventilator in the hospital. He has read assistance, but has not been able to find an open apartment that will take him yet. He is on a waiting list at several different apartments. Vital Signs Vital signs: Initial Vital Signs Temperature 98.7 F 04/15/22 21:41 Temperature Source Temporal Artery Scan 04/15/22 21:41 Pulse Rate 112 H 04/15/22 21:41 Pulse Rhythm 04/15/22 21:41 Respiratory Rate 22 04/15/22 21:41 Blood Pressure 148/88 H 04/15/22 21:41 Blood Pressure Mean 108 04/15/22 21:41 Pulse Oximetry 95 04/15/22 21:41 Oxygen Delivery Method 04/15/22 21:41 Vital Signs Temperature 98.7 F 04/15/22 21:41 Pulse Rate 112 H 04/15/22 21:41 Respiratory Rate 22 04/15/22 21:41 Blood Pressure 148/88 H 04/15/22 21:41 Pulse Oximetry 95 04/15/22 21:41 Oxygen Delivery Method 04/15/22 21:41 Temperature 97.6 F 04/16/22 07:00 Pulse Rate 100 04/16/22 14:30 Respiratory Rate 20 04/16/22 14:30 Blood Pressure 120/88 04/16/22 11:00 Pulse Oximetry 95 04/16/22 11:00 Oxygen Delivery Method 04/16/22 11:00 Oxygen Flow Rate 3 04/16/22 07:00 Medical Decision Making MDM Narrative Medical decision making narrative: Patient is a 42-year-old male insulin-dependent diabetic who is on metformin 500 mg 2 b.i.d. and Levemir 20 mg twice a day and then NovoLog as needed with a sliding scale. He has been out of his insulin for 2 weeks. He is hyperglycemic likely dehydrated. Will check his urine, fluids, venous blood gas. Will give 2 L of IV saline. Will check his laboratory studies and see if we can correct. May need patient may need admission for observation and read correction of his hyperglycemia. Addendum: The patient's blood sugar was over 600 in triage. Will lab studies, venous blood gas, IV fluid. S IV insulin bolus. EKG my read shows sinus tachycardia otherwise normal EKG rate 102 beats per minute no acute ST T wave changes. At this point after discussion with Dr. Padilla our hospitalist we felt that the patient should be admitted for diabetic control blood sugar co ntrol rehydration about that plan. Lab Data Labs: Lab Results 04/15/22 04/15/22 04/15/22 Range/Units 21:50 21:50 21:50 WBC 8.90 (4.50-11.00) K/uL RBC 6.05 H (4.30-5.90) m/uL Hgb 17.4 (13.5-17.5) gm/dL Hct 50.8 (37.0-53.0) % MCV 84 (80-100) fL MCH 29 (26-34) pg MCHC 34 (32-36) gm/dL RDW Coeff of [place] 12.1 (11.5-15.5) % Plt Count 249 (140-440) K/uL Neut % (Auto) 55.0 (42.0-72.0) % Lymph % (Auto) 36.7 (20-44) % [place] % (Auto) 6.1 (0.0-11.0) % Eos % (Auto) 1.7 (0.0-7.0) % Baso % (Auto) 0.4 (0.0-3.0) % Neut # (Auto) 4.89 (1.7-7.0) K/uL Lymph # (Auto) 3.27 H (0.90-2.90) K/uL [place] # (Auto) 0.50 (0.00-0.90) K/UL Eos # (Auto) 0.15 (0.00-0.50) K/uL Baso # (Auto) 0.04 (0.00-0.30) K/uL VBG pH (7.32-7.43) VBG pCO2 (40-50) mmHG VBG pO2 (25-47) mmHG VBG HCO3 (21-28) mmol/L Sodium 130 L (135-149) mmol/L Potassium 4.3 (3.6-5.1) mmol/L Chloride 96 (96-114) mmol/L Carbon Dioxide 23 (20-32) mmol/L BUN 15 (5-24) mg/dL Creatinine 0.6 (0.5-1.5) mg/dL Estimated Creat Clear 162.02 Estimated GFR 124 ml/min Glucose (60-115) mg/dL Hemoglobin A1c (0-5.6) % Lactate (0.5-1.9) mmol/L Calcium 9.8 (8.4-10.6) mg/dL Total Bilirubin 0.7 (0.1-1.5) mg/dL Direct Bilirubin 0.3 (0.0-0.5) mg/dL GGT 59 H (8-55) U/L AST 37 H (12-35) U/L ALT 65 H (4-50) U/L Alkaline Phosphatase 271 H (40-150) U/L C-Reactive Protein 0.8 (0.5-1.0) mg/dL Total Protein 7.6 (6.0-8.3) g/dL Albumin 4.6 (3.3-5.0) g/dL Amylase 106 H (18-89) U/L Urine Color (Yellow) Urine Appearance (Clear) Urine pH (5.0-8.5) Ur Specific [place] (1.000-1.030) Urine Protein (Negative) Urine Glucose (UA) (Negative) Urine Ketones (Negative) Urine Blood (Negative) Urine Nitrite (Negative) Urine Bilirubin (Negative) Urine Urobilinogen (0.2-1.0) Ur Leukocyte Esterase (Negative) Urine RBC (0-2) Urine WBC (0-5) Ur Squamous Epith Cells (None-Few) Urine Bacteria (None) SARS-CoV-2 (PCR) (Negative) Influenza Type A (PCR) (Negative) Influenza Type B (PCR) (Negative) RSV (PCR) (Negative) SARS-CoV-2 Ag (Rapid) (Negative) 04/15/22 04/15/22 04/15/22 Range/Units 21:58 21:58 22:32 WBC (4.50-11.00) K/uL RBC (4.30-5.90) m/uL Hgb (13.5-17.5) gm/dL Hct (37.0-53.0) % MCV (80-100) fL MCH (26-34) pg MCHC (32-36) gm/dL RDW Coeff of [place] (11.5-15.5) % Plt Count (140-440) K/uL Neut % (Auto) (42.0-72.0) % Lymph % (Auto) (20-44) % [place] % (Auto) (0.0-11.0) % Eos % (Auto) (0.0-7.0) % Baso % (Auto) (0.0-3.0) % Neut # (Auto) (1.7-7.0) K/uL Lymph # (Auto) (0.90-2.90) K/uL [place] # (Auto) (0.00-0.90) K/UL Eos # (Auto) (0.00-0.50) K/uL Baso # (Auto) (0.00-0.30) K/uL VBG pH 7.402 (7.32-7.43) VBG pCO2 40 (40-50) mmHG VBG pO2 61.6 H (25-47) mmHG VBG HCO3 25 (21-28) mmol/L Sodium (135-149) mmol/L Potassium (3.6-5.1) mmol/L Chloride (96-114) mmol/L Carbon Dioxide (20-32) mmol/L BUN (5-24) mg/dL Creatinine (0.5-1.5) mg/dL Estimated Creat Clear Estimated GFR ml/min Glucose (60-115) mg/dL Hemoglobin A1c 12.78 H (0-5.6) % Lactate 1.1 (0.5-1.9) mmol/L Calcium (8.4-10.6) mg/dL Total Bilirubin (0.1-1.5) mg/dL Direct Bilirubin (0.0-0.5) mg/dL GGT (8-55) U/L AST (12-35) U/L ALT (4-50) U/L Alkaline Phosphatase (40-150) U/L C-Reactive Protein (0.5-1.0) mg/dL Total Protein (6.0-8.3) g/dL Albumin (3.3-5.0) g/dL Amylase (18-89) U/L Urine Color (Yellow) Urine Appearance (Clear) Urine pH (5.0-8.5) Ur Specific [place] (1.000-1.030) Urine Protein (Negative) Urine Glucose (UA) (Negative) Urine Ketones (Negative) Urine Blood (Negative) Urine Nitrite (Negative) Urine Bilirubin (Negative) Urine Urobilinogen (0.2-1.0) Ur Leukocyte Esterase (Negative) Urine RBC (0-2) Urine WBC (0-5) Ur Squamous Epith Cells (None-Few) Urine Bacteria (None) SARS-CoV-2 (PCR) Negative SARS-CoV-2 (Negative) Influenza Type A (PCR) Negative PCR FLU A (Negative) Influenza Type B (PCR) Negative PCR FLU B (Negative) RSV (PCR) Negative PCR RSV (Negative) SARS-CoV-2 Ag (Rapid) (Negative) 04/15/22 04/15/22 Range/Units 22:55 23:15 WBC (4.50-11.00) K/uL RBC (4.30-5.90) m/uL Hgb (13.5-17.5) gm/dL Hct (37.0-53.0) % MCV (80-100) fL MCH (26-34) pg MCHC (32-36) gm/dL RDW Coeff of [place] (11.5-15.5) % Plt Count (140-440) K/uL Neut % (Auto) (42.0-72.0) % Lymph % (Auto) (20-44) % [place] % (Auto) (0.0-11.0) % Eos % (Auto) (0.0-7.0) % Baso % (Auto) (0.0-3.0) % Neut # (Auto) (1.7-7.0) K/uL Lymph # (Auto) (0.90-2.90) K/uL [place] # (Auto) (0.00-0.90) K/UL Eos # (Auto) (0.00-0.50) K/uL Baso # (Auto) (0.00-0.30) K/uL VBG pH (7.32-7.43) VBG pCO2 (40-50) mmHG VBG pO2 (25-47) mmHG VBG HCO3 (21-28) mmol/L Sodium (135-149) mmol/L Potassium (3.6-5.1) mmol/L Chloride (96-114) mmol/L Carbon Dioxide (20-32) mmol/L BUN (5-24) mg/dL Creatinine (0.5-1.5) mg/dL Estimated Creat Clear Estimated GFR ml/min Glucose (60-115) mg/dL Hemoglobin A1c (0-5.6) % Lactate (0.5-1.9) mmol/L Calcium (8.4-10.6) mg/dL Total Bilirubin (0.1-1.5) mg/dL Direct Bilirubin (0.0-0.5) mg/dL GGT (8-55) U/L AST (12-35) U/L ALT (4-50) U/L Alkaline Phosphatase (40-150) U/L C-Reactive Protein (0.5-1.0) mg/dL Total Protein (6.0-8.3) g/dL Albumin (3.3-5.0) g/dL Amylase (18-89) U/L Urine Color Yellow (Yellow) Urine Appearance Clear (Clear) Urine pH 5.5 (5.0-8.5) Ur Specific [place] <= 1.005 (1.000-1.030) Urine Protein Negative (Negative) Urine Glucose (UA) 3+ A (Negative) Urine Ketones 2+ A (Negative) Urine Blood Trace-intact A (Negative) Urine Nitrite Negative (Negative) Urine Bilirubin Negative (Negative) Urine Urobilinogen 0.2 (0.2-1.0) Ur Leukocyte Esterase Negative (Negative) Urine RBC 0-2 (0-2) Urine WBC 0-2 (0-5) Ur Squamous Epith Cells None (None-Few) Urine Bacteria None (None) SARS-CoV-2 (PCR) (Negative) Influenza Type A (PCR) (Negative) Influenza Type B (PCR) (Negative) RSV (PCR) (Negative) SARS-CoV-2 Ag (Rapid) negative (Negative) Discharge Plan Discharge Clinical Impression: Hyperglycemia due to type 2 diabetes mellitus Patient Disposition: Admitted As Inpatient Condition: Improved Activity Level: No Restrictions Discharge Diet: Diabetic
[2022-04-15 22:04] VITALS: O2SAT 98
[2022-04-15] MEDS: 0.9 % SODIUM CHLORIDE 1000 ml 1,000 ML 6000 ML IV ×2 (22:07)
[2022-04-15 22:09] LABS: Basophils Absolute Auto 0.04 K/uL (0.00-0.30); Basophils Percent Auto 0.4 % (0.0-3.0); Eosinophils Absolute Auto 0.15 K/uL (0.00-0.50); Eosinophils Percent Auto 1.7 % (0.0-7.0); Hematocrit 50.8 % (37.0-53.0); Hemoglobin* 17.4 gm/dL (13.5-17.5); Immature Granulocytes Abs Auto 0.01 K/uL (0.00-0.30); Immature Granulocytes Pct Auto 0.1 %; Lymphocytes Absolute Auto 3.27 K/uL (0.90-2.90); Lymphocytes Percent Auto 36.7 % (20-44); Mean Corpuscular HGB Conc 34 gm/dL (32-36); Mean Corpuscular Hemoglobin 29 pg (26-34); Mean Corpuscular Volume 84 fL (80-100); Monocytes Percent Auto 6.1 % (0.0-11.0); Neutrophils Absolute Auto 4.89 K/uL (1.7-7.0); Platelet Count* 249 K/uL (140-440); RDW Coefficient of Variation % 12.1 % (11.5-15.5); Red Blood Count 6.05 m/uL (4.30-5.90)
[2022-04-15 22:11] LABS: Slide Review Reflex No
[2022-04-15 22:26] LABS: Albumin* 4.6 g/dL (3.3-5.0); Chloride* 96 mmol/L (96-114)
[2022-04-15 22:27] LABS: Potassium* 4.3 mmol/L (3.6-5.1); Sodium* 130 mmol/L (135-149)
[2022-04-15 22:29] LABS: Alkaline Phosphatase* 271 U/L (40-150); Aspartate Amino Transferase* 37 U/L (12-35); Bilirubin Direct* 0.3 mg/dL (0.0-0.5); Bilirubin Total* 0.7 mg/dL (0.1-1.5); Blood Urea Nitrogen* 15 mg/dL (5-24); Carbon Dioxide* 23 mmol/L (20-32); Creatinine* 0.6 mg/dL (0.5-1.5); Est. Creatinine Clearance* 162.02; Estimated Glomerular Filt Rate 124 ml/min; Total Protein* 7.6 g/dL (6.0-8.3)
[2022-04-15 22:30] LABS: Alanine Aminotransferase* 65 U/L (4-50); Amylase* 106 U/L (18-89); Calcium* 9.8 mg/dL (8.4-10.6)
[2022-04-15 22:32] LABS: C Reactive Protein* 0.8 mg/dL (0.5-1.0)
[2022-04-15 22:35] LABS: HCO3 VBG 25 mmol/L (21-28); PCO2 VBG 40 mmHG (40-50); PO2 VBG 61.6 mmHG (25-47); pH VBG 7.402 (7.32-7.43)
[2022-04-15 22:37] VITALS: BP 128/78; PULSE 97; RESP 18; O2SAT 95
--- NOTE | 2022-04-15 22:41 | P.IMHP_ITS ---
Hospitalist- H&P: HPI History of Present Illness Date Seen: 04/15/22 Chief complaint: diabetes above 600 Narrative: ADMISSION HISTORY AND PHYSICAL - HOSPITALIST Chief Complaint: My sugars are high, my eyes feel heavy and I am not well HPI: 42-year-old type 2 diabetic who drove up to our ER complaining of high sugars by his home glucometer, polyuria, fatigue and dizziness. Initial blood sugar was 616. He states he has not used insulin in 2 weeks. He says he has the insulin and glucometer but just stopped caring. He said he is living in a hotel, still working but having trouble eating healthy meals. He does state he has been ?for the most part? taking his oral medication which includes metformin, Lexapro, lisinopril, lipitor. No vomiting. No fever. No cough. No sick contacts that he is aware of. No rash. No drug use. Not drinking. ER COURSE: fluids, 2 L bolus 10 units IV insulin Labs revealed: Blood glucose 600+, not acidotic, normal CBC, tachycardic mildly hypertensive CODE STATUS: FULL CODE EMERGENCY CONTACT PLAN: Brother is his emergency contact in [place] I[facility], medications and allergies in the [facility] tabs. INVESTIGATIONS: LABS/MICRO/ECG/IMAGING 128/78, pulse 97, respiratory rate 18, sats 95% on room air. Weight 120.2 kilos Blood sugar was 616 at 10:50 p.m., blood sugar 339 at 11:22 p.m. after 10 units of insulin CBC unremarkable PH 7.4 Sodium 130, blood sugar 616 so this corrects to 138 Normal renal function A1c is pending Lactate was normal GGT 59 AST, ALT, alk-phos are all mildly elevated CRP 0.8 Amylase 106 No microbiology studies or imaging studies EKG showed sinus tach REVIEW OF SYSTEMS: 12-point ROS completed with patient and negative unless otherwise stated in HPI or below. PHYSICAL EXAM: CODE STATUS: FULL CODE CONSTITUTIONAL: Conversive, good historian. A/O. Knows setting and context. NAD. VITAL SIGNS: see record. HEENT: Normocephalic, atraumatic. PERRL, EOMI, conjunctivae pink, no scleral icterus. Ears and nose externally normal. Pharynx normal. NECK: No JVD. No carotid bruit, no thyromegaly, no adenopathy. CHEST: Clear to auscultation bilaterally HEART: S1 and S2 normal. No harsh murmurs. Edema MINIMAL MUSCULOSKELETAL: No gross joint deformity or swelling. NEURO: Cranial nerves intact. Grossly intact. No asymmetric findings. SKIN: No rashes, petechiae, concerning changes PSYCHIATRIC: Euthymic. ADMIT TO MEDSURG: FLOOR CARE DVT: SCDS GI: PO intake Time spent: 70 minutes examining patient, conferring with family and patient, care staff, developing care plan [facility] Medical History (Updated 04/15/22 @ 23:56 by Monik Padilla MD) Acute hypoxemic respiratory failure due to COVID-19 Alcohol abuse Diabetes mellitus type 2 in obese Gastroesophageal reflux disease Hyperglycemia due to type 2 diabetes mellitus Inadequate housing Major depressive disorder, recurrent, moderate Migraine headache Mixed hyperlipidemia due to type 2 diabetes mellitus Morbid obesity with BMI of 40.0-44.9, adult Non-compliant patient Family History Maternal Grandmother Cancer Mother Cancer Father Diabetes Social History Highest level of school completed/degree received: high school graduate Smoking Status: Never smoker Do you use any of these nicotine containing products: None Second hand tobacco smoke exposure: No How often do you have a drink containing alcohol: never How often do you have six or more drinks on one occasion: Never AUDIT-C Alcohol total score: 0 Non-prescribed substance use: denies use Caffeine: No service: No Meds Home Medications and Allergies Home Medications Medication Instructions Recorded Confirmed Type atorvastatin 10 mg tablet 10 mg PO HS 01/15/22 02/23/22 History escitalopram oxalate 20 mg tablet 20 mg PO DAILY 01/15/22 02/23/22 History lisinopril 2.5 mg tablet 2.5 mg PO HS 01/15/22 02/23/22 History metformin 500 mg tablet,extended 2,000 mg PO DAILY 01/15/22 02/23/22 History release 24 hr Allergies Allergy/AdvReac Type Severity Reaction Status Date / Time No Known Drug Allergies Allergy Verified 02/23/22 15:05 Exam Const: Vital Signs, click to edit/add: Vital Signs - 24 hr 04/15/22 21:41 04/15/22 22:04 Temperature 98.7 F Pulse Rate [Pulse Oximeter] 112 H Respiratory Rate 22 Blood Pressure [Ri ght Upper Arm] 148/88 H Pulse Oximetry 95 98 Oxygen Delivery Me thod Room Air Hospitalist - H&P: Result Labs Labs: Short CBC 04/15/22 Range/Units 21:50 WBC 8.90 (4.50-11.00) K/uL Hgb 17.4 (13.5-17.5) gm/dL Hct 50.8 (37.0-53.0) % Plt Count 249 (140-440) K/uL BMP 04/15/22 21:50 Sodium 130 L Potassium 4.3 Chloride 96 Carbon Dioxide 23 BUN 15 Creatinine 0.6 Glucose Calcium 9.8 Liver Function 04/15/22 Range/Units 21:50 Total Bilirubin 0.7 (0.1-1.5) mg/dL Direct Bilirubin 0.3 (0.0-0.5) mg/dL AST 37 H (12-35) U/L ALT 65 H (4-50) U/L Alkaline Phosphatase 271 H (40-150) U/L Albumin 4.6 (3.3-5.0) g/dL Assessment and Plan Assessment and plan (1) Hyperglycemia due to type 2 diabetes mellitus: Problem comment: 2 L of fluids in the ED, normal saline. 10 units of IV insulin brought his blood sugar down to 339. He is not acidotic. He is awake and alert. His hyperglycemia is almost assuredly related to his noncompliance. About midnight I gave him 20 units of Levemir and changed his fluids to normal saline with potassium and ran those 200 mL an hour. Will do q.1 hour blood sugar checks for 3 hours and then just follow-up with normal Q a.c. Q at bedtime blood sugars. Think he needs to be here for very long but more importantly he needs a social work consult to help him get an apartment, find out if qualifies for any assistance. Status: Acute (2) Fatty liver: Problem comment: Related to his diabetes, noted not new Status: Acute (3) Major depressive disorder, recurrent, moderate: Problem comment: Continue home regimen of Lexapro Status: Acute (4) Mixed hyperlipidemia due to type 2 diabetes mellitus: Problem comment: Continue home dose of Lipitor Status: Acute (5) Inadequate housing: Problem comment: Social work consult, patient is living in a hotel Status: Acute (6) Non-compliant patient: Problem comment: As above Status: Acute
[2022-04-15 22:43] LABS: Lactate* 1.1 mmol/L (0.5-1.9)
[2022-04-15 22:47] LABS: PCR FLU A Negative PCR FLU A (Negative); PCR FLU B Negative PCR FLU B (Negative); PCR RSV Negative PCR RSV (Negative)
--- NOTE | 2022-04-15 22:50 | ED.NURSE ---
Critical glucose from lab: 610
[2022-04-15 22:54] LABS: Gamma Glutamyl Transpeptidase* 59 U/L (8-55)
[2022-04-15 22:55] LABS: SARS PCR* Negative SARS-CoV-2 (Negative)
[2022-04-15 23:24] LABS: SARS Antigen* negative (Negative)
--- NOTE | 2022-04-15 23:27 | ED.NURSE ---
Patient transferred to Med/Surg with process technician. Normal saline infusing at time of transfer.
[2022-04-15 23:31] LABS: Appearance Urine Clear (Clear); Bilirubin Urine Negative (Negative); Blood Urine Trace-intact (Negative); Color Urine Yellow (Yellow); Glucose Urine 3+ (Negative); Ketones Urine 2+ (Negative); Leukocyte Esterase Urine Negative (Negative); Nitrite Urine Negative (Negative); Protein Urine Negative (Negative); Specific Gravity Urine <= 1.005 (1.000-1.030); Urobilinogen Urine 0.2 (0.2-1.0); pH Urine 5.5 (5.0-8.5)
[2022-04-15 23:36] LABS: RBC Urine 0-2 (0-2); WBC Urine 0-2 (0-5)
[2022-04-15 23:37] VITALS: BP 129/81; PULSE 96; RESP 20; TEMP 36.4; O2SAT 96; BMI 39.3
[2022-04-15 23:51] VITALS: BP 129/81; PULSE 96; RESP 20; TEMP 36.4; O2SAT 96
[2022-04-16] MEDS: 0.9 % SODIUM CH + KCL 20 mEq/L 1,000 ML 200 ML IV ×2 (00:12→05:11)
--- NOTE | 2022-04-16 01:43 | PC.NURSE ---
Eddie Whitehead was contacted at 0135 for pt blood glucose 303. Orders received: no additional insulin, skip the 3rd hourly BG check.
[2022-04-16 03:00] VITALS: BP 106/73; PULSE 91; RESP 18; TEMP 36.6; O2SAT 92
[2022-04-16 03:02] LABS: Hemoglobin A1C* 12.78 % (0-5.6)
--- NOTE | 2022-04-16 06:52 | PC.NURSE ---
Shift note: Last check BG at 0400 237, no orders for additional insulin, Eddie Whitehead was notified, no additional orders as well. Pt is resting overnight, no pain reported, no c/o nausea
[2022-04-16 07:00] VITALS: BP 120/79; PULSE 86; PULSE 91; RESP 20; TEMP 36.4; O2SAT 94
[2022-04-16] MEDS: ESCITALOPRAM 10 MG TABLET 20 MG PO (09:19)
[2022-04-16] MEDS: METFORMIN ER 500 MG 2000 MG PO (09:19)
--- NOTE | 2022-04-16 10:29 | PC.SOCIAL ---
Discharge Planning: Pt resides alone in [facility] currently. 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 Pt states that he has a therapist that he meets with weekly on Mondays through the [facility], this therapist aware of pt's health needs and the insulin concerns. Pt declines for insulin to be delivered to [facility], given he is constantly having to be moving rooms and doesn't want the insulin to get lost. 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 Of note is that pt has begun process for disability benefits a while back and has paperwork at home to fax back in to finalize process. No further SW needs at this time.
[2022-04-16 11:00] VITALS: BP 120/88; PULSE 98; RESP 20; O2SAT 95
--- NOTE | 2022-04-16 12:48 | P.DS_ITS ---
DS: Providers Provider Time Seen by Provider: 09:25 Date Seen: 04/16/22 Date of admission: 04/15/22 23:23 Primary care physician: Not a Local Provider Admitting Clinician: Monik Padilla MD Consults: 04/15/22 23:51 Consult to Instrument And Controls Technician [CONS] Routine Comment: Reason for Consult:: Social Service Consult Attending Physician on discharge: Charito Maldonado MD Date of Discharge: 04/16/22 DS: Diagnosis Discharge Diagnosis (1) Hyperglycemia due to type 2 diabetes mellitus: Status: Acute (2) Elevated LFTs: Status: Acute Problem details: probably secondary to fatty liver (3) Noncompliance with medication regimen: Status: Acute (4) Non-compliant patient: Status: Acute Problem details: As above (5) Gastroesophageal reflux disease: Status: Chronic (6) Mixed hyperlipidemia due to type 2 diabetes mellitus: Status: Chronic (7) Major depressive disorder, recurrent, moderate: Status: Acute Problem details: Continue home regimen of Lexapro (8) Inadequate housing: Status: Acute Problem details: patient is living in a hotel (9) Fatty liver: Status: Acute Problem details: Related to his diabetes, noted not new (10) Diabetes mellitus type 2 in obese: Status: Acute (11) Morbid obesity with BMI of 40.0-44.9, adult: Status: Acute DS: Summary Hospital Course Hospital Course: This is a 42-year-old male with insulin-dependent type 2 diabetes mellitus came in with hyperglycemia related to medication noncompliance. He tells me that since being on a mechanical ventilator for COVID about a year ago he has had trouble remembering things and is more tired overall. More often than not he forgets to check his blood sugar and take insulin. He ran out of insulin 2 weeks ago and keeps forgetting to go get more. He did finally pick some up, but noted that his sugar was so high that the meter not give him a number and so he came to the ER. He also was feeling unwell due to the elevated blood sugar. I spoke with him about his hemoglobin A1c being so high and what that meant. Said that his primary care provider had recently retired and he has not yet established care with a new provider. When he needed insulin, different provider please send a prescription over to the pharmacy for him and he was never seen. I spoke with him about how he really needs to follow-up with a primary care provider at this point because he will need tighter control of his sugars. We discussed the potential complications of untreated or poorly treated diabetes which can include eye, kidney, heart, and circulatory complications. He noted that his father had a BKA recently because of diabetes. He has received insulin here and his blood sugars have come under 300 and he is feeling back to normal. He and I spoke at length about setting alarms so that he remembers to check his blood sugar intake his insulin. He began setting these while I was leaving the room and I asked his nurse to work with him to make sure that he has all of them set for home going. He is currently living in a hotel because he missed several rent payments while he was on a ventilator in the hospital. He has read assistance, but has not been able to find an open apartment that will take him yet. He is on a waiting list at several different apartments. Time Spent with Patient Time attestation: Total time spent providing and/or coordinating discharge services: Exam Narrative: Exam Narrative: General: No acute distress. Awake, alert, oriented x3. No pallor. No jaundice. Morbidly obese. Oropharynx: Clear. Mucous membranes moist. Cardiovascular: Regular rate and rhythm. No murmurs, gallops, or rubs. Respiratory: Clear to auscultation bilaterally. No wheezes or crackles. Abdomen: Bowel sounds present. Soft, nondistended, nontender. Extremities: No pedal edema. Const: Vital Signs, click to edit/add: Vital Signs - 24 hr 04/15/22 21:41 04/15/22 22:04 04/15/22 22:37 Temperature 98.7 F Pulse Rate [Pulse Oximeter] 112 H 97 Respiratory Rate 22 18 Blood Pressure [Le ft Radial Artery] Blood Pressure [Ri ght Upper Arm] 148/88 H 128/78 Pulse Oximetry 95 98 95 Oxygen Delivery Me thod Room Air Room Air Oxygen Flow Rate 04/15/22 23:37 04/15/22 23:51 04/15/22 23:51 Temperature 97.5 F L 97.5 F L Pulse Rate [Pulse Oximeter] 96 96 Respiratory Rate 20 20 Blood Pressure [Le ft Radial Artery] 129/81 129/81 Blood Pressure [Ri ght Upper Arm] Pulse Oximetry 96 96 96 Oxygen Delivery Me thod Room Air Room Air Room Air Oxygen Flow Rate 04/16/22 03:00 04/16/22 07:00 04/16/22 07:00 Temperature 98 F Pulse Rate [Pulse Oximeter] 91 91 Respiratory Rate 18 20 Blood Pressure [Le ft Radial Artery] 106/73 Blood Pressure [Ri ght Upper Arm] Pulse Oximetry 92 94 Oxygen Delivery Me thod Room Air Oxygen Flow Rate 04/16/22 07:00 Temperature 97.6 F Pulse Rate [Pulse Oximeter] 86 Respiratory Rate 20 Blood Pressure [Le ft Radial Artery] 120/79 Blood Pressure [Ri ght Upper Arm] Pulse Oximetry 94 Oxygen Delivery Me thod Nasal Cannula Oxygen Flow Rate 3 DS: Data Data Completed and Pending Labs on day of discharge: Labs from last 24 hours 04/15/22 04/15/22 04/15/22 23:15 22:55 22:32 WBC RBC Hgb Hct MCV MCH MCHC RDW Coeff of [place] Plt Count Neut % (Auto) Lymph % (Auto) [place] % (Auto) Eos % (Auto) Baso % (Auto) Neut # (Auto) Lymph # (Auto) [place] # (Auto) Eos # (Auto) Baso # (Auto) VBG pH 7.402 VBG pCO2 40 VBG pO2 61.6 H VBG HCO3 25 Sodium Potassium Chloride Carbon Dioxide BUN Creatinine Estimated Creat Clear Estimated GFR Glucose Hemoglobin A1c Lactate 1.1 Calcium Total Bilirubin Direct Bilirubin GGT AST ALT Alkaline Phosphatase C-Reactive Protein Total Protein Albumin Amylase Urine Color Yellow Urine Appearance Clear Urine pH 5.5 Ur Specific [place] <= 1.005 Urine Protein Negative Urine Glucose (UA) 3+ A Urine Ketones 2+ A Urine Blood Trace-intact A Urine Nitrite Negative Urine Bilirubin Negative Urine Urobilinogen 0.2 Ur Leukocyte Esterase Negative Urine RBC 0-2 Urine WBC 0-2 Ur Squamous Epith Cells None Urine Bacteria None SARS-CoV-2 (PCR) Influenza Type A (PCR) Influenza Type B (PCR) RSV (PCR) SARS-CoV-2 Ag (Rapid) negative 04/15/22 04/15/22 04/15/22 21:58 21:58 21:50 WBC RBC Hgb Hct MCV MCH MCHC RDW Coeff of [place] Plt Count Neut % (Auto) Lymph % (Auto) [place] % (Auto) Eos % (Auto) Baso % (Auto) Neut # (Auto) Lymph # (Auto) [place] # (Auto) Eos # (Auto) Baso # (Auto) VBG pH VBG pCO2 VBG pO2 VBG HCO3 Sodium 130 L Potassium 4.3 Chloride 96 Carbon Dioxide 23 BUN 15 Creatinine 0.6 Estimated Creat Clear 162.02 Estimated GFR 124 Glucose Hemoglobin A1c 12.78 H Lactate Calcium 9.8 Total Bilirubin 0.7 Direct Bilirubin 0.3 GGT 59 H AST 37 H ALT 65 H Alkaline Phosphatase 271 H C-Reactive Protein 0.8 Total Protein 7.6 Albumin 4.6 Amylase Urine Color Urine Appearance Urine pH Ur Specific [place] Urine Protein Urine Glucose (UA) Urine Ketones Urine Blood Urine Nitrite Urine Bilirubin Urine Urobilinogen Ur Leukocyte Esterase Urine RBC Urine WBC Ur Squamous Epith Cells Urine Bacteria SARS-CoV-2 (PCR) Negative SARS-CoV-2 Influenza Type A (PCR) Negative PCR FLU A Influenza Type B (PCR) Negative PCR FLU B RSV (PCR) Negative PCR RSV SARS-CoV-2 Ag (Rapid) 04/15/22 04/15/22 21:50 21:50 WBC 8.90 RBC 6.05 H Hgb 17.4 Hct 50.8 MCV 84 MCH 29 MCHC 34 RDW Coeff of [place] 12.1 Plt Count 249 Neut % (Auto) 55.0 Lymph % (Auto) 36.7 [place] % (Auto) 6.1 Eos % (Auto) 1.7 Baso % (Auto) 0.4 Neut # (Auto) 4.89 Lymph # (Auto) 3.27 H [place] # (Auto) 0.50 Eos # (Auto) 0.15 Baso # (Auto) 0.04 VBG pH VBG pCO2 VBG pO2 VBG HCO3 Sodium Potassium Chloride Carbon Dioxide BUN Creatinine Estimated Creat Clear Estimated GFR Glucose Hemoglobin A1c Lactate Calcium Total Bilirubin Direct Bilirubin GGT AST ALT Alkaline Phosphatase C-Reactive Protein Total Protein Albumin Amylase 106 H Urine Color Urine Appearance Urine pH Ur Specific [place] Urine Protein Urine Glucose (UA) Urine Ketones Urine Blood Urine Nitrite Urine Bilirubin Urine Urobilinogen Ur Leukocyte Esterase Urine RBC Urine WBC Ur Squamous Epith Cells Urine Bacteria SARS-CoV-2 (PCR) Influenza Type A (PCR) Influenza Type B (PCR) RSV (PCR) SARS-CoV-2 Ag (Rapid) Discharge Plan Discharge Disposition: Home, Self-Care Date of Admission: 04/15/22 23:23 Attending Provider on Discharge: Charito Maldonado Primary Care Provider: Provider,Not a Local Condition: Improved Anticipated Discharge Date/Time: 04/16/22 13:11 Discharge Medications: Continued atorvastatin 10 mg tablet 10 mg PO HS Label Comments: TAKE ONE TABLET BY MOUTH AT BEDTIME. metformin 500 mg tablet extended release 24 hr 2,000 mg PO DAILY Label Comments: TAKE FOUR TABLETS BY MOUTH DAILY WITH BREAKFAST. lisinopril 2.5 mg tablet 2.5 mg PO HS Label Comments: TAKE ONE TABLET BY MOUTH AT BEDTIME. HOLD FOR SYSTOLIC BLOOD PRESSURE (TOP NUMBER) LESS THAN 110. escitalopram oxalate 20 mg tablet 20 mg PO DAILY Label Comments: TAKE 1 TABLET (20 MG TOTAL) BY MOUTH DAILY. insulin aspart U-100 [Novolog FlexPen U-100 Insulin] 100 unit/mL (3 mL) Insulin Pen 8 unit subcut TIDWMEAL Qty: 15 5RF insulin detemir U-100 100 unit/mL (3 mL) insulin pen 20 unit subcut BID Qty: 15 3RF No Action (DME) lancets Misc See Rx Instructions .Route Qty: 100 5RF Rx Instructions: As directed (DME) FreeStyle Nadira 14 Day Mobile Misc See Rx Instructions .Route Qty: 1 5RF Rx Instructions: As directed (DME) FreeStyle Nadira 14 Day Sensor Kit See Rx Instructions .Route Qty: 1 4RF Rx Instructions: As directed (DME) pen needle, diabetic 31 gauge x 3/16 needle See Rx Instructions .Route Qty: 100 3RF Rx Instructions: As directed (DME) Test Strips Misc See Rx Instructions .Route Qty: 1 6RF Rx Instructions: As directed Discharge Orders: Discharge Order (Routine); Ordered 04/16/22 Ordered By: Charito Maldonado Additional Instructions: 1. Establish care with a PCP this week to help you manage diabetes and fatty liver. 2. Follow a diabetic diet and get regular daily exercise. Try to lose 5-10 lbs over the next few months. Do not skip meals. 3. Check blood sugars and use insulin as prescribed. Set alarms to help you remember to do this. If needed, set a calendar todo on your phone to help remind you to case picker your medications each month. It is very important that you are compliant with your medications and that you have regular follow up with your PCP. 4. Keep a log of your blood sugars and bring this with you to your doctor appointments. Activity Level: No Restrictions Discharge Diet: Diabetic Follow Up Appointments: Cammy Gonzalez SVP [employer] [Referring] - Forms: [employer] Info Instructions
[2022-04-16 14:30] VITALS: PULSE 100; RESP 20
--- NOTE | 2022-04-16 14:46 | PC.NURSE ---
Nursing Care Hours: [id number] Pt this shift calm and comfortable in bed. Cooperative with cares. Fatigued aeb easily falling asleep and needing to be lightly shaken to wake up. Eating and drinking normally, voiding clear pale yellow output. C/o intermittent chest pain, not new, not radiating. VSS. During discharge paper work, pulse noted to be 100bpm, pt c/o shortness of breath, O2 sats at 94%. Pt states he does have diagnosed anxiety and hx of panic attacks. Behavioral Science Chair asked pt if this feels like a panic attack or something different and pt states yea, it feels like that. Pt opened up about some legal appointments scheduled for today and is suppose to work overnight at work tonight. Pt frustrated that hospitalist wouldn't write a note to work to extend time off. Behavioral Science Chair explained to pt that he is medically clear to go to work and if it is for mental health, maybe he could use a sick day. Pt called his psychologist in the room to get recommendation from them. Behavioral Science Chair unsure of what was talked about. Behavioral Science Chair went over discharge paperwork with pt. Talked about follow up appointment, diet, and medications. Discussed with pt meal planning. Pt lives in hotel and has a microwave and fridge, so pt eats a lot of frozen foods and fast foods. Pt says he does like salads, so feature writer recommended getting rotisserie chicken from the store and some prepackaged salad kits, pt was agreeable and said that he could do that. Discussed exercise regimen, pt states that his new insurance offers bonus pay back/incentives for joining and going to a gym. Behavioral Science Chair also mentioned to pt that the local [facility] offers sliding scale options based on income. Pt agreeable and will look into it. All questions and concerns addressed. Behavioral Science Chair attempted to set up NovoLog Flex pen and Detemir pen to go home with pt but pt left the unit before writers return.
== END 2022-04-16 14:30 | disposition home or self-care (01) ==
LOC: ED 22:03 → MEDSURG 23:33
PROVIDERS: Admitting Provider Family Medicine; Emergency Provider Family Medicine; PCP Nurse Practitioner Family; Visit Provider Family Medicine
DX: E11.65 Type 2 diabetes mellitus with hyperglycemia (principal); K76.0 Fatty (change of) liver, not elsewhere classified; Z91.14 Patient's other noncompliance with medication regimen; Z91.199 Patient's noncompliance with other medical treatment and regimen due to unspecified reason; K21.9 Gastro-esophageal reflux disease without esophagitis; R94.5 Abnormal results of liver function studies; R74.01 Elevation of levels of liver transaminase levels; E78.2 Mixed hyperlipidemia; F33.1 Major depressive disorder, recurrent, moderate; Z59.1 Inadequate housing; R79.89 Other specified abnormal findings of blood chemistry; E11.69 Type 2 diabetes mellitus with other specified complication; E66.01 Morbid (severe) obesity due to excess calories; Z68.41 Body mass index [BMI] 40.0-44.9, adult; Z79.4 Long term (current) use of insulin; I10 Essential (primary) hypertension; Z79.84 Long term (current) use of oral hypoglycemic drugs; R35.0 Frequency of micturition; R63.1 Polydipsia; Z80.9 Family history of malignant neoplasm, unspecified; R00.0 Tachycardia, unspecified; R35.89 Other polyuria; R42 Dizziness and giddiness
CPT/HCPCS: 36415; 80048; 80076; 81001; 82150; 82803; 82962; 82977; 83036; 83605; 85025; 86140; 87086; 87426; 87502; 87634; 87635; 93005; 94761; 96361; 96365; 96366; 96372; 96375; 99284; 99285; A9270; G0378; J7030

== ENCOUNTER 2022-06-25 13:37 | Emergency (ER) | payer OTHER, BC, SELFPAY ==
[2022-06-25] VITALS (28 sets, daily range): BP systolic 90–131; BP diastolic 65–91; PULSE 75–94; RESP 16; TEMP 37.4; O2SAT 94–99; BMI 38.8
[2022-06-25 15:24] LABS: Lactate* 1.1 mmol/L (0.5-1.9)
[2022-06-25 15:31] LABS: Basophils Absolute Auto 0.04 K/uL (0.00-0.30); Basophils Percent Auto 0.4 % (0.0-3.0); Eosinophils Absolute Auto 0.14 K/uL (0.00-0.50); Eosinophils Percent Auto 1.5 % (0.0-7.0); Hematocrit 47.7 % (37.0-53.0); Immature Granulocytes Abs Auto 0.08 K/uL (0.00-0.30); Immature Granulocytes Pct Auto 0.9 %; Lymphocytes Absolute Auto 3.38 K/uL (0.90-2.90); Lymphocytes Percent Auto 36.8 % (20-44); Mean Corpuscular HGB Conc 34 gm/dL (32-36); Mean Corpuscular Hemoglobin 29 pg (26-34); Mean Corpuscular Volume 86 fL (80-100); Monocytes Percent Auto 6.2 % (0.0-11.0); Neutrophils Absolute Auto 4.98 K/uL (1.7-7.0); Neutrophils Percent Auto 54.2 % (42.0-72.0); Platelet Count* 252 K/uL (140-440); RDW Coefficient of Variation % 12.3 % (11.5-15.5); Red Blood Count 5.58 m/uL (4.30-5.90); White Blood Count* 9.19 K/uL (4.50-11.00)
[2022-06-25 15:55] LABS: SARS PCR* Negative SARS-CoV-2 (Negative)
[2022-06-25 16:08] LABS: Albumin* 4.2 g/dL (3.3-5.0); Chloride* 103 mmol/L (96-114); Slide Review Reflex No; Sodium* 135 mmol/L (135-149)
[2022-06-25 16:09] LABS: Potassium* 3.8 mmol/L (3.6-5.1)
[2022-06-25 16:11] LABS: Alkaline Phosphatase* 98 U/L (40-150); Aspartate Amino Transferase* 33 U/L (12-35); Bilirubin Direct* 0.3 mg/dL (0.0-0.5); Bilirubin Total* 0.7 mg/dL (0.1-1.5); Blood Urea Nitrogen* 13 mg/dL (5-24); Carbon Dioxide* 26 mmol/L (20-32); Creatinine* 0.5 mg/dL (0.5-1.5); Est. Creatinine Clearance* 194.43; Estimated Glomerular Filt Rate 131 ml/min; Total Protein* 7.4 g/dL (6.0-8.3)
[2022-06-25 16:12] LABS: Alanine Aminotransferase* 46 U/L (4-50); Calcium* 8.7 mg/dL (8.4-10.6); Glucose* 161 mg/dL (60-115); Lipase* 70 U/L (23-300)
[2022-06-25 16:14] LABS: C Reactive Protein* 0.9 mg/dL (0.5-1.0)
[2022-06-25 16:21] LABS: NT Pro B Type NatriureticPept* < 20 pg/mL
--- NOTE | 2022-06-25 16:47 | ED.GENADULT ---
HPI - General Adult General Date Seen: 06/25/22 <Adrienne Yates MD - Last Filed: 06/26/22 19:11> Chief complaint: Extremity Pain/Injury, Lower <Adrienne Yates MD - Last Filed: 06/26/22 19:11> Stated complaint: came from ER, check for blood clots has EKG <Adrienne Yates MD - Last Filed: 06/26/22 19:11> Time Seen by Provider: 06/25/22 13:41 <Adrienne Yates MD - Last Filed: 06/26/22 19:11> Source: patient <Adrienne Yates MD - Last Filed: 06/26/22 19:11> Mode of arrival: ambulatory <Adrienne Yates MD - Last Filed: 06/26/22 19:11> Limitations: no limitations <Adrienne Yates MD - Last Filed: 06/26/22 19:11> History of Present Illness HPI narrative: Patient is a 42-year-old male who presents for evaluation of some central and right-sided chest pain with radiation into the back and into the right shoulder. He initially reported that this felt similar to when he had a PE, but further exploration of that topic reveals that he had COVID which resulted in severe symptoms necessitating intubation and ICU care. He says that it was during this time that he had a PE, however when I asked him how long he was on anticoagulation, it turns out that really he was just maintained on anticoagulation for a week or 2 after coming out of the ICU. He does not actually know whether not he had a PE, and it turns out that it may just have been that he was on prophylactic anticoagulation per week or 2 after coming out of the ICU to prevent pulmonary embolism. In going through his chart, it does not appear that he has ever been diagnosed with PE. Has never been maintained on anticoagulation for a longer period of time. In any case, he notes that the pain in his chest has been pleuritic and also worsened with movement such as going from lying on his back to lying on his right side. He has not otherwise felt short of breath. He denies fever or cough. Has not had any lower extremity swelling or pain. Has not tried any medications. He also notes that he has a history of an infection in his gallbladder, he says that his lungs were not strong enough to have surgery so he had a drain placed in his gallbladder. He denies any problems with his heart. He does have diabetes which has historically been poorly controlled. He does not smoke. He says he drinks maybe once a month. Denies other substances. <Adrienne Yates MD - Last Filed: 06/26/22 19:11> Related Data Home medications: Home Medications Medication Instructions Recorded Confirmed atorvastatin 10 mg tablet 10 mg PO HS 01/15/22 06/25/22 escitalopram oxalate 20 mg tablet 20 mg PO DAILY 01/15/22 06/25/22 lisinopril 2.5 mg tablet 2.5 mg PO HS 01/15/22 06/25/22 metformin 500 mg tablet,extended 2,000 mg PO DAILY 01/15/22 06/25/22 release 24 hr Previous Rx's Medication Instructions Recorded Test Strips #1 ea 01/16/22 flash glucose scanning reader #1 ea 01/16/22 (FreeStyle Nadira 14 Day [place]) flash glucose sensor (FreeStyle #1 ea 01/16/22 Nadira 14 Day Sensor kit) insulin aspart U-100 100 unit/mL 8 unit (0.08 mL) subcut TIDWMEAL 01/16/22 (3 mL) subcutaneous pen (Novolog #15 mL FlexPen U-100 Insulin aspart) insulin detemir U-100 100 unit/mL 20 unit (0.2 mL) subcut BID #15 mL 01/16/22 (3 mL) subcutaneous pen lancets #100 ea 01/16/22 pen needle, diabetic 31 gauge x #100 ea 01/16/22 3/16 <Adrienne Yates MD - Last Filed: 06/26/22 19:11> Allergies/adverse reactions: Allergies Allergy/AdvReac Type Severity Reaction Status Date / Time No Known Drug Allergies Allergy Verified 06/25/22 14:05 <Adrienne Yates MD - Last Filed: 06/26/22 19:11> Review of Systems Status of ROS: Reports: 10 or more systems reviewed and unremarkable except as noted in History and below <Adrienne Yates MD - Last Filed: 06/26/22 19:11> [facility] Medical History: Medical History Acute hypoxemic respiratory failure due to COVID-19 Alcohol abuse Diabetes mellitus type 2 in obese Gastroesophageal reflux disease Hyperglycemia due to type 2 diabetes mellitus Inadequate housing Major depressive disorder, recurrent, moderate Migraine headache Mixed hyperlipidemia due to type 2 diabetes mellitus Morbid obesity with BMI of 40.0-44.9, adult Non-compliant patient <Adrienne Yates MD - Last Filed: 06/26/22 19:11> Family History: Family History Maternal Grandmother Cancer Mother Cancer Father Diabetes <Adrienne Yates MD - Last Filed: 06/26/22 19:11> Social History: Social History Highest level of school completed/degree received: high school graduate Smoking Status: Never smoker Do you use any of these nicotine containing products: None Second hand tobacco smoke exposure: No How often do you have a drink containing alcohol: never How often do you have six or more drinks on one occasion: Never AUDIT-C Alcohol total score: 0 Non-prescribed substance use: denies use Caffeine: No service: No <Adrienne Yates MD - Last Filed: 06/26/22 19:11> Exam Narrative: Exam Narrative: Vital signs as noted above. In general, an alert, well-appearing patient. Breathing easily. Looks comfortable. Head: Normocephalic, atraumatic. Eyes: Pupils are equal reactive. Extraocular movements are full. Conjunctivae are normal. ENT: Mucous membranes are moist. Throat is normal. Neck: Supple without lymphadenopathy. Heart: Regular rate and rhythm. No murmur or rub. Lungs: Clear bilaterally. No increased work of breathing, crackles or wheezes. Abdomen: Soft and nondistended. Mild epigastric tenderness without rebound guarding or rigidity. Extremities: Well perfused. No edema. No calf tenderness. Pulses intact. Neurologic: Patient is alert and oriented to person and place. Speech is fluent. Face is symmetric. Moves all extremities equally. Affect: Normal. Skin: Warm and dry. Well perfused. <Adrienne Yates MD - Last Filed: 06/26/22 19:11> Const: Vital Signs, click to edit/add: Vital Signs - 24 hr 06/25/22 19:15 Pulse Rate 86 Pulse Oximetry 96 <Adrienne Yates MD - Last Filed: 06/26/22 19:11> Vital Signs, click to edit/add: Vital Signs - 24 hr 06/25/22 19:15 Pulse Rate 86 Pulse Oximetry 96 <Cordell Pinto MD - Last Filed: 06/26/22 04:19> Documenting provider has reviewed patient's vital signs: yes <Adrienne Yates MD - Last Filed: 06/26/22 19:11> Course Course Hospital Course: Following initial evaluation, patient did have an EKG which by my review showed a normal sinus rhythm with a ventricular rate of 85 beats per minute. No acute ST segment changes. Unremarkable T-waves. His initial troponin was 0. Diagnostic considerations included pulmonary embolism, pneumonia, pneumothorax, acute coronary syndrome, cholecystitis, pancreatitis, choledocholithiasis, among others. Overall, his workup has been fairly unrevealing. His white blood cell count is 9.2, hemoglobin is normal, platelets normal. D-dimer still pending as of right now. I did look with the bedside ultrasound and try and find his gallbladder but at this point it is perhaps contracted as I am not able to find it. Body habitus may be playing a role. There is also a lot of overlying bowel gas. Metabolic panel is unremarkable. Blood sugars 161 here today. LFTs are entirely within normal limits. CRP is 0.9. BNP is less than 20. Lipase is normal at 70. COVID is negative. He has been sleeping well here, he says his pain is improved. I am waiting on the D-dimer, as if this is normal I will do a plain x-ray. If it is elevated then I think we are obligated to do a CT scan. Unfortunately, the D-dimer machine at our hospital is not working and this will need to be sent out. I gave the patient the option of waiting until this lab is available, but he does not want to wait. He would prefer to proceed with a CT scan without waiting for the D-dimer. CT scan is pending at this time. I will ask Dr. Pinto to follow-up on the CT scan for me. I am also going to get a 2nd troponin. If these tests are negative, I think patient can be safely discharged home. He is feeling well, he says he is mostly hungry and just would like to go home at this point. Primary care follow-up would be reasonable to make sure he is feeling improved and that no further testing is warranted. Return at any time for worsening or severe symptoms. <Adrienne Yates MD - Last Filed: 06/26/22 19:11> Vital Signs Vital signs: Initial Vital Signs Temperature 99.4 F 06/25/22 13:57 Temperature Source Temporal Artery Scan 06/25/22 13:57 Pulse Rate 75 06/25/22 13:57 Respiratory Rate 16 06/25/22 13:57 Blood Pressure 120/79 06/25/22 13:57 Blood Pressure Mean 92 06/25/22 13:57 Blood Pressure Position Sitting 06/25/22 13:57 Pulse Oximetry 97 06/25/22 13:57 Oxygen Delivery Method 06/25/22 13:57 Vital Signs Temperature 99.4 F 06/25/22 13:57 Pulse Rate 75 06/25/22 13:57 Respiratory Rate 16 06/25/22 13:57 Blood Pressure 120/79 06/25/22 13:57 Pulse Oximetry 97 06/25/22 13:57 Oxygen Delivery Method 06/25/22 13:57 Temperature 99.4 F 06/25/22 13:57 Pulse Rate 86 06/25/22 19:15 Respiratory Rate 16 06/25/22 13:57 Blood Pressure 123/82 06/25/22 19:02 Pulse Oximetry 96 06/25/22 19:15 Oxygen Delivery Method 06/25/22 13:57 <Adrienne Yates MD - Last Filed: 06/26/22 19:11> Initial Vital Signs Temperature 99.4 F 06/25/22 13:57 Temperature Source Temporal Artery Scan 06/25/22 13:57 Pulse Rate 75 06/25/22 13:57 Respiratory Rate 16 06/25/22 13:57 Blood Pressure 120/79 06/25/22 13:57 Blood Pressure Mean 92 06/25/22 13:57 Blood Pressure Position Sitting 06/25/22 13:57 Pulse Oximetry 97 06/25/22 13:57 Oxygen Delivery Method 06/25/22 13:57 Vital Signs Temperature 99.4 F 06/25/22 13:57 Pulse Rate 75 06/25/22 13:57 Respiratory Rate 16 06/25/22 13:57 Blood Pressure 120/79 06/25/22 13:57 Pulse Oximetry 97 06/25/22 13:57 Oxygen Delivery Method 06/25/22 13:57 Temperature 99.4 F 06/25/22 13:57 Pulse Rate 86 06/25/22 19:15 Respiratory Rate 16 06/25/22 13:57 Blood Pressure 123/82 06/25/22 19:02 Pulse Oximetry 96 06/25/22 19:15 Oxygen Delivery Method 06/25/22 13:57 <Cordell Pinto MD - Last Filed: 06/26/22 04:19> Medical Decision Making MDM Narrative Medical decision making narrative: Millie -- Received patient at handoff for change of shift. Pending CTA chest. Chest CT resulted at about the same time that a normal D-dimer came back. I did review these images personally. IMPRESSION: No pulmonary embolism, as questioned. Scattered streaky ground-glass opacification greater in the upper lobes, possibly infectious/inflammatory in etiology. Unclear etiology also in the setting of post COVID. Might be inflammatory in the setting of normal white count. We discussed treatment including steroids and/or antibiotics. Underlying history of diabetes acknowledged. He would prefer to wait to discuss on follow-up this following week in primary care. I think that is reasonable. On re-examination he is quite tender through the rhomboid musculature. He is saying that this is some of the pain he has been feeling. He took a new job which does require looking back over his right shoulder regularly which he thinks might have exacerbated what appears to be some secondary component of chest wall pain. He thinks his pain in particular is positional. Will be giving exercises for upper back/rhomboids. Trial of naproxen. <Cordell Pinto MD - Last Filed: 06/26/22 04:19> Lab Data Labs: Lab Results 06/25/22 06/25/22 06/25/22 Range/Units 14:55 15:12 15:12 WBC 9.19 (4.50-11.00) K/uL RBC 5.58 (4.30-5.90) m/uL Hgb 16.0 (13.5-17.5) gm/dL Hct 47.7 (37.0-53.0) % MCV 86 (80-100) fL MCH 29 (26-34) pg MCHC 34 (32-36) gm/dL RDW Coeff of [place] 12.3 (11.5-15.5) % Plt Count 252 (140-440) K/uL Neut % (Auto) 54.2 (42.0-72.0) % Lymph % (Auto) 36.8 (20-44) % [place] % (Auto) 6.2 (0.0-11.0) % Eos % (Auto) 1.5 (0.0-7.0) % Baso % (Auto) 0.4 (0.0-3.0) % Neut # (Auto) 4.98 (1.7-7.0) K/uL Lymph # (Auto) 3.38 H (0.90-2.90) K/uL [place] # (Auto) 0.60 (0.00-0.90) K/UL Eos # (Auto) 0.14 (0.00-0.50) K/uL Baso # (Auto) 0.04 (0.00-0.30) K/uL D-Dimer Quant (PE/DVT) Cancelled Sodium (135-149) mmol/L Potassium (3.6-5.1) mmol/L Chloride (96-114) mmol/L Carbon Dioxide (20-32) mmol/L BUN (5-24) mg/dL Creatinine (0.5-1.5) mg/dL Estimated Creat Clear Estimated GFR ml/min Glucose (60-115) mg/dL Lactate (0.5-1.9) mmol/L Calcium (8.4-10.6) mg/dL Total Bilirubin (0.1-1.5) mg/dL Direct Bilirubin (0.0-0.5) mg/dL AST (12-35) U/L ALT (4-50) U/L Alkaline Phosphatase (40-150) U/L C-Reactive Protein (0.5-1.0) mg/dL NT-Pro-B Natriuret Pep pg/mL Total Protein (6.0-8.3) g/dL Albumin (3.3-5.0) g/dL Lipase (23-300) U/L SARS-CoV-2 (PCR) Negative SARS-CoV-2 (Negative) POC Troponin I (0.01-0.04) ng/ml 06/25/22 06/25/22 06/25/22 Range/Units 15:12 15:12 15:12 WBC (4.50-11.00) K/uL RBC (4.30-5.90) m/uL Hgb (13.5-17.5) gm/dL Hct (37.0-53.0) % MCV (80-100) fL MCH (26-34) pg MCHC (32-36) gm/dL RDW Coeff of [place] (11.5-15.5) % Plt Count (140-440) K/uL Neut % (Auto) (42.0-72.0) % Lymph % (Auto) (20-44) % [place] % (Auto) (0.0-11.0) % Eos % (Auto) (0.0-7.0) % Baso % (Auto) (0.0-3.0) % Neut # (Auto) (1.7-7.0) K/uL Lymph # (Auto) (0.90-2.90) K/uL [place] # (Auto) (0.00-0.90) K/UL Eos # (Auto) (0.00-0.50) K/uL Baso # (Auto) (0.00-0.30) K/uL D-Dimer Quant (PE/DVT) Sodium 135 (135-149) mmol/L Potassium 3.8 (3.6-5.1) mmol/L Chloride 103 (96-114) mmol/L Carbon Dioxide 26 (20-32) mmol/L BUN 13 (5-24) mg/dL Creatinine 0.5 (0.5-1.5) mg/dL Estimated Creat Clear 194.43 Estimated GFR 131 ml/min Glucose 161 H (60-115) mg/dL Lactate 1.1 (0.5-1.9) mmol/L Calcium 8.7 (8.4-10.6) mg/dL Total Bilirubin 0.7 (0.1-1.5) mg/dL Direct Bilirubin 0.3 (0.0-0.5) mg/dL AST 33 (12-35) U/L ALT 46 (4-50) U/L Alkaline Phosphatase 98 (40-150) U/L C-Reactive Protein 0.9 (0.5-1.0) mg/dL NT-Pro-B Natriuret Pep < 20 pg/mL Total Protein 7.4 (6.0-8.3) g/dL Albumin 4.2 (3.3-5.0) g/dL Lipase 70 (23-300) U/L SARS-CoV-2 (PCR) (Negative) POC Troponin I 0.00 L (0.01-0.04) ng/ml 06/25/22 Range/Units 17:42 WBC (4.50-11.00) K/uL RBC (4.30-5.90) m/uL Hgb (13.5-17.5) gm/dL Hct (37.0-53.0) % MCV (80-100) fL MCH (26-34) pg MCHC (32-36) gm/dL RDW Coeff of [place] (11.5-15.5) % Plt Count (140-440) K/uL Neut % (Auto) (42.0-72.0) % Lymph % (Auto) (20-44) % [place] % (Auto) (0.0-11.0) % Eos % (Auto) (0.0-7.0) % Baso % (Auto) (0.0-3.0) % Neut # (Auto) (1.7-7.0) K/uL Lymph # (Auto) (0.90-2.90) K/uL [place] # (Auto) (0.00-0.90) K/UL Eos # (Auto) (0.00-0.50) K/uL Baso # (Auto) (0.00-0.30) K/uL D-Dimer Quant (PE/DVT) Sodium (135-149) mmol/L Potassium (3.6-5.1) mmol/L Chloride (96-114) mmol/L Carbon Dioxide (20-32) mmol/L BUN (5-24) mg/dL Creatinine (0.5-1.5) mg/dL Estimated Creat Clear Estimated GFR ml/min Glucose (60-115) mg/dL Lactate (0.5-1.9) mmol/L Calcium (8.4-10.6) mg/dL Total Bilirubin (0.1-1.5) mg/dL Direct Bilirubin (0.0-0.5) mg/dL AST (12-35) U/L ALT (4-50) U/L Alkaline Phosphatase (40-150) U/L C-Reactive Protein (0.5-1.0) mg/dL NT-Pro-B Natriuret Pep pg/mL Total Protein (6.0-8.3) g/dL Albumin (3.3-5.0) g/dL Lipase (23-300) U/L SARS-CoV-2 (PCR) (Negative) POC Troponin I 0.00 L (0.01-0.04) ng/ml <Adrienne Yates MD - Last Filed: 06/26/22 19:11> Lab Results 06/25/22 06/25/22 06/25/22 Range/Units 14:55 15:12 15:12 WBC 9.19 (4.50-11.00) K/uL RBC 5.58 (4.30-5.90) m/uL Hgb 16.0 (13.5-17.5) gm/dL Hct 47.7 (37.0-53.0) % MCV 86 (80-100) fL MCH 29 (26-34) pg MCHC 34 (32-36) gm/dL RDW Coeff of [place] 12.3 (11.5-15.5) % Plt Count 252 (140-440) K/uL Neut % (Auto) 54.2 (42.0-72.0) % Lymph % (Auto) 36.8 (20-44) % [place] % (Auto) 6.2 (0.0-11.0) % Eos % (Auto) 1.5 (0.0-7.0) % Baso % (Auto) 0.4 (0.0-3.0) % Neut # (Auto) 4.98 (1.7-7.0) K/uL Lymph # (Auto) 3.38 H (0.90-2.90) K/uL [place] # (Auto) 0.60 (0.00-0.90) K/UL Eos # (Auto) 0.14 (0.00-0.50) K/uL Baso # (Auto) 0.04 (0.00-0.30) K/uL D-Dimer Quant (PE/DVT) Cancelled Sodium (135-149) mmol/L Potassium (3.6-5.1) mmol/L Chloride (96-114) mmol/L Carbon Dioxide (20-32) mmol/L BUN (5-24) mg/dL Creatinine (0.5-1.5) mg/dL Estimated Creat Clear Estimated GFR ml/min Glucose (60-115) mg/dL Lactate (0.5-1.9) mmol/L Calcium (8.4-10.6) mg/dL Total Bilirubin (0.1-1.5) mg/dL Direct Bilirubin (0.0-0.5) mg/dL AST (12-35) U/L ALT (4-50) U/L Alkaline Phosphatase (40-150) U/L C-Reactive Protein (0.5-1.0) mg/dL NT-Pro-B Natriuret Pep pg/mL Total Protein (6.0-8.3) g/dL Albumin (3.3-5.0) g/dL Lipase (23-300) U/L SARS-CoV-2 (PCR) Negative SARS-CoV-2 (Negative) POC Troponin I (0.01-0.04) ng/ml 06/25/22 06/25/22 06/25/22 Range/Units 15:12 15:12 15:12 WBC (4.50-11.00) K/uL RBC (4.30-5.90) m/uL Hgb (13.5-17.5) gm/dL Hct (37.0-53.0) % MCV (80-100) fL MCH (26-34) pg MCHC (32-36) gm/dL RDW Coeff of [place] (11.5-15.5) % Plt Count (140-440) K/uL Neut % (Auto) (42.0-72.0) % Lymph % (Auto) (20-44) % [place] % (Auto) (0.0-11.0) % Eos % (Auto) (0.0-7.0) % Baso % (Auto) (0.0-3.0) % Neut # (Auto) (1.7-7.0) K/uL Lymph # (Auto) (0.90-2.90) K/uL [place] # (Auto) (0.00-0.90) K/UL Eos # (Auto) (0.00-0.50) K/uL Baso # (Auto) (0.00-0.30) K/uL D-Dimer Quant (PE/DVT) Sodium 135 (135-149) mmol/L Potassium 3.8 (3.6-5.1) mmol/L Chloride 103 (96-114) mmol/L Carbon Dioxide 26 (20-32) mmol/L BUN 13 (5-24) mg/dL Creatinine 0.5 (0.5-1.5) mg/dL Estimated Creat Clear 194.43 Estimated GFR 131 ml/min Glucose 161 H (60-115) mg/dL Lactate 1.1 (0.5-1.9) mmol/L Calcium 8.7 (8.4-10.6) mg/dL Total Bilirubin 0.7 (0.1-1.5) mg/dL Direct Bilirubin 0.3 (0.0-0.5) mg/dL AST 33 (12-35) U/L ALT 46 (4-50) U/L Alkaline Phosphatase 98 (40-150) U/L C-Reactive Protein 0.9 (0.5-1.0) mg/dL NT-Pro-B Natriuret Pep < 20 pg/mL Total Protein 7.4 (6.0-8.3) g/dL Albumin 4.2 (3.3-5.0) g/dL Lipase 70 (23-300) U/L SARS-CoV-2 (PCR) (Negative) POC Troponin I 0.00 L (0.01-0.04) ng/ml 06/25/22 Range/Units 17:42 WBC (4.50-11.00) K/uL RBC (4.30-5.90) m/uL Hgb (13.5-17.5) gm/dL Hct (37.0-53.0) % MCV (80-100) fL MCH (26-34) pg MCHC (32-36) gm/dL RDW Coeff of [place] (11.5-15.5) % Plt Count (140-440) K/uL Neut % (Auto) (42.0-72.0) % Lymph % (Auto) (20-44) % [place] % (Auto) (0.0-11.0) % Eos % (Auto) (0.0-7.0) % Baso % (Auto) (0.0-3.0) % Neut # (Auto) (1.7-7.0) K/uL Lymph # (Auto) (0.90-2.90) K/uL [place] # (Auto) (0.00-0.90) K/UL Eos # (Auto) (0.00-0.50) K/uL Baso # (Auto) (0.00-0.30) K/uL D-Dimer Quant (PE/DVT) Sodium (135-149) mmol/L Potassium (3.6-5.1) mmol/L Chloride (96-114) mmol/L Carbon Dioxide (20-32) mmol/L BUN (5-24) mg/dL Creatinine (0.5-1.5) mg/dL Estimated Creat Clear Estimated GFR ml/min Glucose (60-115) mg/dL Lactate (0.5-1.9) mmol/L Calcium (8.4-10.6) mg/dL Total Bilirubin (0.1-1.5) mg/dL Direct Bilirubin (0.0-0.5) mg/dL AST (12-35) U/L ALT (4-50) U/L Alkaline Phosphatase (40-150) U/L C-Reactive Protein (0.5-1.0) mg/dL NT-Pro-B Natriuret Pep pg/mL Total Protein (6.0-8.3) g/dL Albumin (3.3-5.0) g/dL Lipase (23-300) U/L SARS-CoV-2 (PCR) (Negative) POC Troponin I 0.00 L (0.01-0.04) ng/ml <Cordell Pinto MD - Last Filed: 06/26/22 04:19> Discharge Plan Discharge Clinical Impression: Right-sided chest pain, Chest wall pain <Adrienne Yates MD - Last Filed: 06/26/22 19:11> Patient Disposition: Home, Self-Care <Adrienne Yates MD - Last Filed: 06/26/22 19:11> Condition: Improved <Adrienne Yates MD - Last Filed: 06/26/22 19:11> Instructions: Chest Pain (ED) <Adrienne Yates MD - Last Filed: 06/26/22 19:11> Additional Instructions: Follow-up with primary care in the next week for recheck. Return at any time for severe worsening symptoms. Your evaluation today is unremarkable, CT scan is negative for blood clot. There are some findings however of inflammation possibly infectious in your luyngs but your labs are normal. I understand your preference to follow-up in primary care to review further with your appointment in 7-10 days. Given the tenderness you demonstrate in your upper back/rhomboid muscles, see handout on exercises enclosed to do for that; I would try to do this twice a day. Consider taking regularly dosed naproxen 375 mg twice daily with a little food over the next 5 days. <Adrienne Yates MD - Last Filed: 06/26/22 19:11> Prescriptions: No Action atorvastatin 10 mg tablet 10 mg PO HS Label Comments: TAKE ONE TABLET BY MOUTH AT BEDTIME. metformin 500 mg tablet extended release 24 hr 2,000 mg PO DAILY Label Comments: TAKE FOUR TABLETS BY MOUTH DAILY WITH BREAKFAST. lisinopril 2.5 mg tablet 2.5 mg PO HS Label Comments: TAKE ONE TABLET BY MOUTH AT BEDTIME. HOLD FOR SYSTOLIC BLOOD PRESSURE (TOP NUMBER) LESS THAN 110. escitalopram oxalate 20 mg tablet 20 mg PO DAILY Label Comments: TAKE 1 TABLET (20 MG TOTAL) BY MOUTH DAILY. insulin aspart U-100 [Novolog FlexPen U-100 Insulin] 100 unit/mL (3 mL) Insulin Pen 8 unit subcut TIDWMEAL Qty: 15 5RF insulin detemir U-100 100 unit/mL (3 mL) insulin pen 20 unit subcut BID Qty: 15 3RF (DME) lancets Misc See Rx Instructions .Route Qty: 100 5RF Rx Instructions: As directed (DME) FreeStyle Nadira 14 Day [place] Misc See Rx Instructions .Route Qty: 1 5RF Rx Instructions: As directed (DME) FreeStyle Nadira 14 Day Sensor Kit See Rx Instructions .Route Qty: 1 4RF Rx Instructions: As directed (DME) pen needle, diabetic 31 gauge x 3/16 needle See Rx Instructions .Route Qty: 100 3RF Rx Instructions: As directed (DME) Test Strips Misc See Rx Instructions .Route Qty: 1 6RF Rx Instructions: As directed <Adrienne Yates MD - Last Filed: 06/26/22 19:11> Follow Up/Referrals: Provider,Not a Local [Primary Care Provider] - <Adrienne Yates MD - Last Filed: 06/26/22 19:11> Stand Alone Forms: MyHealth Info Instructions <Adrienne Yates MD - Last Filed: 06/26/22 19:11>
--- NOTE | 2022-06-25 17:34 | CRLHL7_ITS ---
For Patients: As a result of the Century Cures Act, medical imaging exams and procedure reports are released immediately into your electronic medical record. You may view this report before your referring provider. If you have questions, please contact your health care provider. INDICATION: Right-sided chest pain. TECHNIQUE: CT chest PE was acquired with 95 cc Omnipaque 350 IV contrast. COMPARISON: None. FINDINGS: Heart and vasculature: Contrast opacification of the pulmonary arterial tree is adequate. No sign of pulmonary embolism. Heart size is normal. Thoracic aorta and pulmonary artery are normal in caliber. Lungs and pleura: No suspicious nodules or infiltrates. Scattered streaky ground-glass opacification greater in the upper lobes. No pleural effusions, pleural thickening, or pneumothorax. Lymph nodes/mediastinum: Few prominent mediastinal lymph nodes, likely reactive. No hilar, or axillary adenopathy. Chest wall: No masses. Upper abdomen: Hepatic steatosis. No acute or significant findings. Bones: Unremarkable for age. IMPRESSION: No pulmonary embolism, as questioned. Scattered streaky ground-glass opacification greater in the upper lobes, possibly infectious/inflammatory in etiology. Please note that all CT scans at this facility use dose modulation, iterative reconstruction, and/or weight-based dosing when appropriate to reduce radiation dose to as low as reasonably achievable. Dictated by John Becker MD @ 06/25/2022 6:56:09 PM (Electronically Signed)
== END 2022-06-25 19:24 | disposition home or self-care (01) ==
PROVIDERS: Emergency Provider Emergency Medicine
DX: R07.89 Other chest pain (principal)
CPT/HCPCS: 36415; 71260; 80048; 80076; 83605; 83690; 83880; 84484; 85025; 85379; 86140; 87635; 93005; 94761; 99284; 99285; Q9967

== ENCOUNTER 2023-08-02 02:14 | Emergency (ER) | payer OTHER, SELFPAY ==
[2023-08-02 02:19] VITALS: BP 107/77; PULSE 95; RESP 20; TEMP 36.3; O2SAT 93; BMI 37.4
--- NOTE | 2023-08-02 02:52 | ED_ITS ---
HPI - General Adult General Date Seen: 08/02/23 Chief complaint: Unspecified Complaint, Adult Stated complaint: Assesment Time Seen by Provider: 08/02/23 02:35 Source: patient and police Mode of arrival: other (police) Limitations: other (Intoxication) History of Present Illness HPI narrative: Patient is a 43-year-old male who was brought in by law enforcement after being arrested for driving under the influence. His blood alcohol by Breathalyzer was 0.242. He has had two previous DWIs. He was initially apprehensive about getting out of his car and is brought in to the ER to be cleared prior to being sent to prison. His blood sugar is around 250. He is awake alert but obviously intoxicated. He acknowledges being depressed and working with a therapist Cha López. He tells me that he sees her weekly and just saw her two or three days ago. They did not adjust his medication. He was not suicidal that point. He tells me that he has had some thoughts of hanging himself and his therapist knows about that. He has never made any plans to act on that. He takes Lexapro 20 mg daily. No recent adjustment in his medication. He lives alone. Does not have any children. Related Data Home Medications Medication Instructions Recorded Confirmed atorvastatin 10 mg tablet 10 mg PO HS 01/15/22 08/02/23 escitalopram oxalate 20 mg tablet 20 mg PO DAILY 01/15/22 08/02/23 lisinopril 2.5 mg tablet 2.5 mg PO HS 01/15/22 08/02/23 metformin 500 mg tablet,extended 2,000 mg PO DAILY 01/15/22 08/02/23 release 24 hr Previous Rx's Medication Instructions Recorded Test Strips #1 ea 01/16/22 flash glucose scanning reader #1 ea 01/16/22 (FreeStyle Nadira 14 Day [place]) flash glucose sensor (FreeStyle #1 ea 01/16/22 Nadira 14 Day Sensor kit) insulin aspart U-100 100 unit/mL 8 unit (0.08 mL) subcut TIDWMEAL 01/16/22 (3 mL) subcutaneous pen (Novolog #15 mL FlexPen U-100 Insulin aspart) insulin detemir U-100 100 unit/mL 20 unit (0.2 mL) subcut BID #15 mL 01/16/22 (3 mL) subcutaneous pen lancets #100 ea 01/16/22 pen needle, diabetic 31 gauge x #100 ea 01/16/2206/21 Allergies Allergy/AdvReac Type Severity Reaction Status Date / Time No Known Drug Allergies Allergy Verified 08/02/23 02:24 Review of Systems Narrative: Review of systems is outlined above otherwise noted to be negative. He tells me that he takes one metformin pill and one shot of insulin. He does not know who his PCP is. [facility] Medical History Acute hypoxemic respiratory failure due to COVID-19 Alcohol abuse Diabetes mellitus type 2 in obese Gastroesophageal reflux disease Hyperglycemia due to type 2 diabetes mellitus Inadequate housing Major depressive disorder, recurrent, moderate Migraine headache Mixed hyperlipidemia due to type 2 diabetes mellitus Morbid obesity with BMI of 40.0-44.9, adult Non-compliant patient Family History Maternal Grandmother Cancer Mother Cancer Father Diabetes Social History Highest level of school completed/degree received: high school graduate Smoking Status: Never smoker Do you use any of these nicotine containing products: None Second hand tobacco smoke exposure: No How often do you have a drink containing alcohol: never How often do you have six or more drinks on one occasion: Never AUDIT-C Alcohol total score: 0 Non-prescribed substance use: denies use Caffeine: No service: No Exam Narrative: Exam Narrative: Vitals noted. He is obviously intoxicated. He is cheerful and smiling. He asks to have his handcuffs removed numerous times. The arresting officer is present with him here in the ER. HEENT: Conjunctiva clear. Tympanic membranes are pearly white bilaterally. Posterior pharynx is clear without erythema or exudate. Neck is supple without adenopathy, thyromegaly, carotid bruit. Lungs: Clear to auscultation in all espinosa. No wheezes, rales, rhonchi. Heart: Regular rate and rhythm without murmur. Abdomen: Soft and nontender. No guarding, rigidity, rebound. Bowel sounds are normal. No palpable masses. Extremities: No cyanosis or edema. Good distal pulses. Skin: No abnormalities noted of the exposed skin. Neurologic: Awake, alert, fully oriented. Neurologic exam is nonfocal. Const: Vital Signs, click to edit/add: Vital Signs - 24 hr 08/02/23 02:19 Temperature 97.4 F L Pulse Rate [Pulse Oximeter] 95 Respiratory Rate 20 Blood Pressure [Ri ght Upper Arm] 107/77 Pulse Oximetry 93 Oxygen Delivery Me thod Room Air Course Course ED Course: Patient was seen and examined. He is obviously intoxicated. He is happy and smiling and does not appear acutely depressed. After interviewing and examining him I feel that he is safe to go to prison. Obviously they have suicide precautions there. He should continue his home medications. It is unclear to me how often he actually takes these. No medical reason that he cannot be discharged to prison. Vital Signs Vital signs: Initial Vital Signs Temperature 97.4 F L 08/02/23 02:19 Temperature Source Temporal Artery Scan 08/02/23 02:19 Pulse Rate 95 08/02/23 02:19 Respiratory Rate 20 08/02/23 02:19 Blood Pressure 107/77 08/02/23 02:19 Blood Pressure Mean 87 08/02/23 02:19 Blood Pressure Position Sitting 08/02/23 02:19 Pulse Oximetry 93 08/02/23 02:19 Oxygen Delivery Method Room Air 08/02/23 02:19 Vital Signs Temperature 97.4 F L 08/02/23 02:19 Pulse Rate 95 08/02/23 02:19 Respiratory Rate 20 08/02/23 02:19 Blood Pressure 107/77 08/02/23 02:19 Pulse Oximetry 93 08/02/23 02:19 Oxygen Delivery Method Room Air 08/02/23 02:19 Temperature 97.4 F L 08/02/23 02:19 Pulse Rate 95 08/02/23 02:19 Respiratory Rate 20 08/02/23 02:19 Blood Pressure 107/77 08/02/23 02:19 Pulse Oximetry 93 08/02/23 02:19 Oxygen Delivery Method Room Air 08/02/23 02:19 Discharge Plan Discharge Clinical Impression: Type 2 diabetes mellitus, Alcohol intoxication, Depression Patient Disposition: Xfer Other Condition: Stable Additional Instructions: Continue your follow-up with her therapist an your primary care provider. Abstain from alcohol. Continue Lexapro 20 mg daily. Continue metformin and daily insulin. Prescriptions: No Action atorvastatin 10 mg tablet 10 mg PO HS Patient Comments: TAKE ONE TABLET BY MOUTH AT BEDTIME. metformin 500 mg tablet extended release 24 hr 2,000 mg PO DAILY Patient Comments: TAKE FOUR TABLETS BY MOUTH DAILY WITH BREAKFAST. lisinopril 2.5 mg tablet 2.5 mg PO HS Patient Comments: TAKE ONE TABLET BY MOUTH AT BEDTIME. HOLD FOR SYSTOLIC BLOOD PRESSURE (TOP NUMBER) LESS THAN 110. escitalopram oxalate 20 mg tablet 20 mg PO DAILY Patient Comments: TAKE 1 TABLET (20 MG TOTAL) BY MOUTH DAILY. insulin aspart U-100 [Novolog FlexPen U-100 Insulin] 100 unit/mL (3 mL) Insulin Pen 8 unit subcut TIDWMEAL Qty: 15 5RF insulin detemir U-100 100 unit/mL (3 mL) insulin pen 20 unit subcut BID Qty: 15 3RF (DME) lancets Misc See Rx Instructions .Route Qty: 100 5RF Rx Instructions: As directed (DME) FreeStyle Nadira 14 Day [place] Misc See Rx Instructions .Route Qty: 1 5RF Rx Instructions: As directed (DME) FreeStyle Nadira 14 Day Sensor Kit See Rx Instructions .Route Qty: 1 4RF Rx Instructions: As directed (DME) pen needle, diabetic 31 gauge x 3/16 needle See Rx Instructions .Route Qty: 100 3RF Rx Instructions: As directed (DME) Test Strips Misc See Rx Instructions .Route Qty: 1 6RF Rx Instructions: As directed Stand Alone [facility]
--- OUTSIDE RECORDS SUMMARY | 2023-08-02 03:05 | XMS_ITS | Encounter Summary ---
Author Name Unknown Organization [facility] Address [address] [place] [address] Care Team Providers Care Student Union Consultant Name Role Phone Liliana Rodriguez APRN, C.N.P., D.N.P. [facility] Care Provider Reason for Referral * Outpatient (Routine) - Pending Review Specialty Diagnoses / Procedures Referred By Contac t Referred To Contact Diagnoses Pain Ankle Right Procedures DX Ankle Right 3+ Views Ambar Sarmiento APRN, C.N.P., D.N.P. [address] [place] [address] [facility] Referral ID Status Reason Start Date Expiration Date V isits Requested Visits Authorized [id number] Pending Review 07/23/2023 07/22/2024 1 1 Reason for Visit * Outpatient (Routine) - Pending Review Specialty Diagnoses / Procedures Referred By Contac t Referred To Contact Diagnoses Pain Ankle Right Procedures DX Ankle Right 3+ Views Ambar Sarmiento APRN, C.N.P., D.N.P. [address] [place] [address] [facility] Region Referral ID Status Reason Start Date Expiration Date V isits Requested Visits Authorized [id number] Pending Review 07/23/2023 07/22/2024 1 1 Encounter Details Date Type Department Care Team (Latest Contact Info) Description 07/23/2023 4:30 PM CDT - 07/23/2023 4:44 PM CDT Hospital Encounter Department of Radiology in [place], [place] [address] [place] [address] Ambar Sarmiento, ORACIO, C.N.P., D.N.P. [address] [place] [address] Pain Ankle Right Discharge Disposition: Home or Self Care Social History Tobacco Use Types Packs/Day Years Used Date Smoking Tobacco: Former Smokeless Tobacco: Never Alcohol Use Standard Drinks/Week Comments Not Currently 0 (1 standard drink = 0.6 oz pur e alcohol) Humiliation, Afraid, Rape, and Kick questionnair e Answer Date Recorded Within the last year, have y ou been afraid of your partner or ex-partner? No 12/15/2020 Within the last year, have y ou been humiliated or emotionally abused in other ways by your partner or ex-partner? No Within the last year, have y ou been kicked, hit, slapped, or otherwise physically hurt by your partner or ex-partner? No 12/15/2020 Within the last year, have y ou been raped or forced to have any kind of sexual activity by your partner or ex-partner? No 12/15/2020 Social Connection and Isolation Panel [NHANES] A nswer Date Recorded In a typical week, how many times do you talk on the phone with family, friends, or neighbors? Twice a week 12/15/2020 How often do you get together with friends or re latives? Once a week 12/15/2020 How often do you attend congregation or anabaptist serv ices? Never 12/15/2020 Do you belong to any clubs o r organizations such as congregation groups, unions, fraternal or athletic groups, or school groups? No 12/15/2020 How often do you attend meet ings of the clubs or organizations you belong to? Never 12/15/2020 Are you , , di vorced, , never , or living with a partner? Never 12/15/2020 AUDIT-C Answer Date Recorded Q1: How often do you have a drink containing alc ohol? Never 12/15/2020 Average Number of Drinks Not on file 021 Frequency of Binge Drinking Not on file 12/2020 Overall Financial Resource Strain (CARDIA) Answe r Date Recorded How hard is it for you to pa y for the very basics like food, housing, medical care, and heating? Somewhat hard 12/15/2020 PHQ-2 Answer Date Recorded PHQ-2 Score 4 05/22/2023 [facility] - Occupational Stress Questionnaire Answer Date Recorded Do you feel stress - tense, restless, nervous, or anxious, or unable to sleep at night because your mind is troubled all the time - these days? Very much 12/15/2020 Exercise Vital Sign Answer Date Recorde d On average, how many days pe r week do you engage in moderate to strenuous exercise (like a brisk walk)? 3 days 12/15/2020 On average, how many minutes do you engage in exercise at this level? 30 min 12/15/2020 Hunger Vital Sign Answer Date Recorded Within the past 12 months, y ou worried that your food would run out before you got the money to buy more. Sometimes true Within the past 12 months, t he food you bought just didn't last and you didn't have money to get more. Sometimes true 12/2020 PRAPARE - Transportation Answer Date Re corded In the past 12 months, has l ack of transportation kept you from medical appointments or from getting medications? Yes 12/2020 In the past 12 months, has l ack of transportation kept you from meetings, work, or from getting things needed for daily living? Yes 12/15/2020 Housing Stability Vital Sign Answer Anthony e Recorded In the last 12 months, was t here a time when you were not able to pay the mortgage or rent on time? Yes 12/15/2020 In the last 12 months, how many places have you lived? 1 12/15/2020 In the last 12 months, was t here a time when you did not have a steady place to sleep or slept in a jail (including now)? No 12/15/2020 Depression Answer Date Recor ded PHQ-9 Total Score (max 27) 16 05/22 Nutrition Answer Date Recorded Nutrition: EVOO Fat Source No 12/15 On average, how many serving s of fruits and vegetables do you eat per day (serving size is equal to 1 cup or approximately the size of a tennis ball)? 0-1 12/15/2020 Dental Answer Date Recorded Dental: Regular Dentist No 04/05/20 22 Employment Answer Date Recorded Employment status Unemployed/not in th e paid workforce but seeking employment 12/15/2020 Education Answer Date Recorded What is the highest level of school you have completed or the highest degree you have received? 12th grade 12/15/2020 Sex and Gender Information Value Date Recorded Sex Assigned at Male 09/11/2017 1:18 PM CDT Gender Identity Male 09/11/2017 1:18 PM CDT Sexual Orientation Straight 09/11/2017 1: 18 PM CDT documented as of this encounter Medications at Time of Discharge Medication Sig Dispensed Refills Start Date End Date atorvastatin (LIPITOR) 20 mg tabletIndications:Hyperl ipidemia Mixed Take 2 tablets (40 mg total) by mouth daily. 180 tablet 3 05/22/2023 05/21/2024 blood glucose ctl high,nml,low solutionIndications:Diab etes Mellitus Type 2 Hyperglycemia (HCC) Glucose control solution provides an easy way to ensure accurate blood glucose testing. 1 each 10/15/2022 blood sugar diagnostic stripsIndications:Diabet es Mellitus Type 2 Hyperglycemia (HCC) 3 test daily. 270 test 3 10/15/2022 10/15/2023 blood-glucose meter miscIndications:Diabetes Mellitus Type 2 Hyperglycemia (HCC) Test as directed for diabetes control. 1 each 10/15/2022 blood-glucose sensor (FreeStyle Nadira 3 Sensor) deviceIndications:Diabet es Mellitus Type 2 Hyperglycemia (HCC),Director Of Food And Nutrition Use Of Insulin Active (HCC) 1 each every 14 (fourteen) days. 7 each 3 06/26/2023 busPIRone (BUSPAR) 5 mg tablet Take 1 tablet (5 mg total) by mouth 3 (three) times a day. 180 tablet 3 05/22/2023 dulaglutide (TRULICITY) 1.5 mg/0.5 mL pen injector injectionIndications:Devora betes Mellitus Type 2 Hyperglycemia (HCC) Inject 0.5 mL (1.5 mg total) under the skin every 7 (seven) days. 6 mL 3 06/26/2023 escitalopram (LEXAPRO) 20 mg tabletIndications:Anxiet y Generalized Disorder Take 1 tablet (20 mg total) by mouth daily. 90 tablet 3 05/22/2023 ibuprofen (ADVIL,MOTRIN) 200 mg tablet Take 3 tablets (600 mg total) by mouth every 8 (eight) hours as needed. 03/15/2020 insulin aspart U-100 (NovoLOG FlexPen) 100 unit/mL (3 mL) injectionIndications:Devora betes Mellitus Type 2 Hyperglycemia (HCC),[facility]ison Use Of Insulin Active (HCC) Inject 5-8 Units under the skin 3 (three) times a day with meals. 30 mL 2 06/26/2023 insulin glargine (Lantus Solostar U-100 Insulin) 100 unit/mL (3 mL) injectionIndications:Devora betes Mellitus Type 2 Hyperglycemia (HCC) Inject 25 Units under the skin at bedtime. Injected daily as directed. 22.5 mL 3 05/22/2023 05/21/2024 lancetsIndications:Diabe tenzin Mellitus Type 2 Hyperglycemia (HCC),Director Of Food And Nutrition Use Of Insulin Active (HCC) 1 each 3 (three) times a day. 180 each 3 06/26/2023 lisinopriL (PRINIVIL,ZESTRIL) 2.5 mg tabletIndications:Diabet es Mellitus Type 2 Without Complication (HCC) Take 1 tablet (2.5 mg total) by mouth daily. 90 tablet 3 05/22/2023 metFORMIN (GLUCOPHAGE) 1,000 mg tabletIndications:Diabet es Mellitus Type 2 Hyperglycemia (HCC) Take 1 tablet (1,000 mg total) by mouth 2 (two) times a day with meals. 180 tablet 3 05/22/2023 05/21/2024 UltiCare Pen Needle 31 gauge x 3/16 needle USE WITH INSULIN DIRECTED 400 each 3 01/29/2023 documented as of this encounter Plan of Treatment Upcoming Encounters Date Type Department Care Team (Late st Contact Info) Description 08/20/2023 8:00 AM CDT Office Visit Department of Family Medicine, [facility], in [place], [place] [address] [place] [phone] Liliana Rodriguez APRN, C.N.PMike, D.N.P. [address] [facility] [place] [address] documented as of this encounter Goals Goal Patient Goal Type Associated Problems Recent Progress Patient-Stated? Author Self Management of DM General On track( 021 1:57 PM CDT) No Arelis Mckeon R.N. Note: DIABETES TYPE 2 EAT WELL Eat a balanced diet, distribute carbohydrate food throughout the day. Choose healthy foods including: whole grains, fruits, vegetables, beans/legumes, and low fat milk. MAINTAIN Follow your sick day plan when you are ill. This includes testing more frequently and monitoring for signs of high blood sugars. Your Blood Pressure should less than 140/90 Your Hemoglobin A1c should be less than 8.0. Check every 3 months. Then every 6 months. Your LDL (bad cholesterol) should be less than 100. Inspect your feet every day for: cuts, bruises, bleeding, redness and nail problems. Eye Exam 1 time every year. Depression Screening Tool Score less than 5. DISCOVER Review the educational material about Diabetes from your healthcare provider. Emergency Care: Hypoglycemia Seek Emergency care for symptoms of hypoglycemia that do not improve with treatment. Symptoms include: sweating, shakiness, headache, changes in vision, weakness, nervousness, rapid heartbeat, confusion, persistent blood sugars less than 70 or irritability. Carry food or candy with you at all times to treat hypoglycemia (low blood sugar) Hyperglycemia Seek Emergency care for symptoms of hyperglycemia (high blood sugar) that do not improve with treatment. Symptoms include: increased thirst or urination, fatigue, blurred vision, weakness, nausea/vomiting, abdominal pain, fruity smelling breath, or rapid breathing. Gain strength, wean of O2, keep diabetes under control General On track( 022 1:18 PM NET SQL DEVELOPER) Yes Arelis Mckeon R.N. Note: He would like to get stronger, Keep his diabetes managed well Wean off the oxygen when he is able documented as of this encounter Procedures Procedure Name Priority Date/Time Associated Diagnosis Comments DX ANKLE RIGHT 3+ VIEWS RAD - Routine (most inpatients and all outpatients) 07/23/2023 5:56 PM CDT Pain Ankle Right documented in this encounter Results * DX Ankle Right 3+ Views (07/23/2023 5:56 PM CDT) Anatomical Region Laterality Modality Lower Extremity, Ankle, Musc uloskeletal RST LOS, Musculoskeletal ARZ LOS, Muskuloskeletal FLA LOS Right Digit al Radiography Impressions 07/23/2023 6:11 PM CDT No comparison available. Anatomic alignment of the ankle. Small inferiorly oriented osteophytic spur along the medial malleolus, presumably sequela of prior injury. Ankle mortise is preserved. No ankle joint effusion. Mild soft tissue edema about the ankle circumferentially. Anatomic alignment of the foot. No acute fracture. Achilles insertional enthesophytes. Joint spaces are preserved. Soft tissue is within normal limits. Narrative 07/23/2023 6:11 PM CDT EXAM: DX ANKLE RIGHT 3+ VIEWS, DX FOOT RIGHT 3+ VIEWS Procedure Note Julia Pat D.O. - 07/23/2023 EXAM: DX ANKLE RIGHT 3+ VIEWS, DX FOOT RIGHT 3+ VIEWS IMPRESSION: No comparison available. Anatomic alignment of the ankle. Small inferiorly oriented osteophyticspur along the medial malleolus, presumably sequela of prior injury. Anklemortise is preserved. No ankle joint effusion. Mild soft tissue edemaabout the ankle circumferentially. Anatomic alignment of the foot. No acute fracture. Achilles insertionalenthesophytes. Joint spaces are preserved. Soft tissue is within normallimits. Ambar Sarmiento APRN, C.N.P., D.N.P. IMG DI AGNOSTIC IMAGING PROCEDURES documented in this encounter Visit Diagnoses Diagnosis Pain Ankle Right documented in this encounter Additional Health Concerns Assessment Noted Time PHQ-9 Depression Total Score: 16 05/22/ 024 8:31 AM NET SQL DEVELOPER documented as of this encounter Care Teams Student Union Consultant Relationship Specialty Start Date End Date Jerry-Liliana Cardozo APRN, C.N.P., D.N.P. [address] [place] [phone] PCP - General 10/01/22 documented as of this encounter
--- OUTSIDE RECORDS SUMMARY | 2023-08-02 03:05 | XMS_ITS | Encounter Summary ---
Author Name Unknown Organization [facility] Address [address] [place] [address] Care Team Providers Care Finish Molder Name Role Phone Liliana Rodriguez APRN, C.N.P., D.N.P. P [facility] Care Provider Reason for Referral * Outpatient (Routine) - Pending Review Specialty Diagnoses / Procedures Referred By Contac t Referred To Contact Diagnoses Pain Foot Right Procedures DX Foot Right 3+ Views Ambar Sarmiento APRN, C.N.P., D.N.P. [address] [place] [address] [facility] Referral ID Status Reason Start Date Expiration Date V isits Requested Visits Authorized [id number] Pending Review 07/23/2023 07/22/2024 1 1 Reason for Visit * Outpatient (Routine) - Pending Review Specialty Diagnoses / Procedures Referred By Contac t Referred To Contact Diagnoses Pain Foot Right Procedures DX Foot Right 3+ Views Ambar Sarmiento APRN, C.N.P., D.N.P. [address] [place] [address] [facility] Region Referral ID Status Reason Start Date Expiration Date V isits Requested Visits Authorized [id number] Pending Review 07/23/2023 07/22/2024 1 1 Encounter Details Date Type Department Care Team (Latest Contact Info) Description 07/23/2023 4:45 PM CDT - 07/23/2023 11:59 PM CDT Hospital Encounter Department of Radiology in [place], [place] [address] [place] [address] Ambar Sarmiento, ORACIO, C.N.P., D.N.P. [address] [place] [address] Pain Foot Right Discharge Disposition: Home or Self Care [...] week 12/15/2020 How often do you attend religious or buddhist serv ices? Never 12/15/2020 Do you belong to any clubs o r organizations such as religious groups, unions, fraternal or athletic groups, or [...] Answer Date Recorded PHQ-2 Score 4 05/22/2023 [facility] - Occupational Stress Questionnaire Answer Date [...] place to sleep or slept in a correction (including now)? 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 30 mL 2 06/26/2023 insulin glargine (Lantus Solostar U-100 Insulin) 100 unit/mL (3 mL) injectionIndications:Devora betes Mellitus Type 2 Hyperglycemia (HCC) Inject 25 Units under the skin at bedtime. Injected daily as directed. 22.5 mL 3 05/22/2023 05/21/2024 lancetsIndications:Diabe tenzin Mellitus Type 2 Hyperglycemia (HCC),Finisher [employer] Dies Use Of Insulin Active (HCC) 1 each [...] CDT Office Visit Department of Family Medicine, [facility], in [place], [place] [address] [facility] [place] [phone] Liliana Rodriguez APRN, C.N.PMike, D.N.P. [address] [facility] [place] [address] documented as of this encounter Goals Goal [...] control General On track( 022 1:18 PM TILE LAYER) Yes Arelis Mckeon R.N. Note: He would like to get stronger, Keep his diabetes managed well Wean off the oxygen when he is able documented as of this encounter Procedures Procedure Name Priority Date/Time Associated Diagnosis Comments DX FOOT RIGHT 3+ VIEWS RAD - Routine (most inpatients and all outpatients) 07/23/2023 5:57 PM CDT Pain Foot Right documented in this encounter Results * DX Foot Right 3+ Views (07/23/2023 5:57 PM CDT) Anatomical Region Laterality Modality Lower Extremity, Foot, Muscu loskeletal RST LOS, Musculoskeletal ARZ LOS, Muskuloskeletal FLA [...] in this encounter Visit Diagnoses Diagnosis Pain Foot Right documented in this encounter Additional Health Concerns Assessment Noted Time PHQ-9 Depression Total Score: 16 05/22/2 024 8:31 AM TILE LAYER documented as of this encounter Care Teams Finish Molder Relationship Specialty Start Date End Date Jerry-Liliana Cardozo APRN, C.N.P., D.N.P. [address] [place] [phone] PCP - General 10/01/22 documented as of this encounter
--- OUTSIDE RECORDS SUMMARY | 2023-08-02 03:05 | XMS_ITS ---
Author Name Unknown Organization [facility] Address [address] [place] [address] Care Team Providers Care Physician Pediatrician Name Role Phone Unavailable Unavailable Unavailable Surgery Details Not on file Complications Check Surgery Details section. Procedure Estimated Blood Loss Check Surgery Details section. Procedure Findings Check Surgery Details section. Procedure Specimens Taken Check Surgery Details section.
--- OUTSIDE RECORDS SUMMARY | 2023-08-02 03:05 | XMS_ITS | Referral Summary ---
Author Name Unknown Organization [facility] Address [address] [place] [address] Care Team Providers Care Theatrical Scenic Designer Name Role Phone Liliana Rodriguez APRN, C.N.P., D.N.P. P [facility] Care Provider Source Comments Patient records contain information from all sites at [facility]. For routine questions regarding patient records, call [phone] during business hours, M-F 8:00 AM - 5:00 PM Central Time. Record requests for emergency care only can be directed to [phone] at any time.[facility] Encounters Date Type Department Care Team Description 07/23/2023 4:45 PM CDT - 07/23/2023 11:59 PM CDT Hospital Encounter Department of Radiology in [place], [place] [address] [phone] Ambar Sarmiento APRN, C.N.P., D.N.P. Pain Foot Right Discharge Disposition: Home or Self Care 07/23/2023 4:30 PM CDT - 07/23/2023 4:44 PM CDT Hospital Encounter Department of Radiology in [place], [place] [address] [phone] Ambar Sarmiento APRN, C.N.P., D.N.P. Pain Ankle Right Discharge Disposition: Home or Self Care 07/23/2023 6:00 PM CDT Office Visit Department of Family Medicine, [facility], in [place], [place] [address] [place] [phone] Ambar Sarmiento APRN, C.N.P., D.N.P. Pain Ankle Right (Primary Dx); Pain Foot Right; Sprain Ankle Initial Right 07/01/2023 Clinical Communication Department of [facility], [facility], in [address] [address] Dayana Adams R.N. Quality (D5) 06/26/2023 9:00 AM CDT Virtual Visit Department of [facility] in [address] [phone] Liliana Rodriguez APRN, C.N.P., D.N.P. Gloria Kitchen Pharm.D., BCACP, R.Ph. Medication Management Issue (Primary Dx); Diabetes Mellitus Type 2 Hyperglycemia (HCC); Guide Plant Use Of Insulin Active (HCC) 05/22/2023 8:40 AM SUSTAINABILITY PROJECT COORDINATOR - 05/22/2023 11:59 PM SUSTAINABILITY PROJECT COORDINATOR Hospital Encounter Department of Laboratory Medicine in [address] [phone] Liliana Rodriguez APRN, C.N.P., D.N.P. Diabetes Mellitus Type 2 Hyperglycemia (HCC) Discharge Disposition: Home or Self Care 05/22/2023 8:00 AM SUSTAINABILITY PROJECT COORDINATOR Office Visit Department of [facility], [facility], in [address] [phone] Liliana Rodriguez APRN, C.N.P., D.N.P. Diabetes Mellitus Type 2 Hyperglycemia (HCC) (Primary Dx); Hyperlipidemia Mixed; Anxiety Generalized Disorder; Diabetes Mellitus Type 2 Without Complication (HCC); Microalbuminuria; Depression Major Recurrent Moderate (HCC); Morbid Obesity Body Mass Index >= 35 with Comorbid Condition (HCC); Inadequate Housing Unspecified 05/21/2023 8:20 AM SUSTAINABILITY PROJECT COORDINATOR - 05/21/2023 11:59 PM SUSTAINABILITY PROJECT COORDINATOR Hospital Encounter Department of Laboratory Medicine in [place], [place] [address] [facility] [place] [address] Liliana Rodriguez APRN, C.N.P., D.N.P. Diabetes Mellitus Type 2 Hyperglycemia (HCC) Discharge Disposition: Home or Self Care 05/14/2023 Clinical Communication Department of Family Medicine, [facility], in [place], [place] [address] [place] [address] Dayana Adams R.N. Quality (D5) from Last 3 Months Allergies No known active allergies Medications Medication Sig Dispensed Refills Start Date End Date Status ibuprofen (ADVIL,MOTRIN) 200 mg tablet Take 3 tablets (600 mg total) by mouth every 8 (eight) hours as needed. 03/15/2020 Active blood glucose ctl high,nml,low solutionIndications :Diabetes Mellitus Type 2 Hyperglycemia (HCC) Glucose control solution provides an easy way to ensure accurate blood glucose testing. 1 each 10/15/2022 Active blood sugar diagnostic stripsIndications:D iabetes Mellitus Type 2 Hyperglycemia (HCC) 3 test daily. 270 test 3 10/15/2022 10/15/2023 Active blood-glucose meter miscIndications:Devora betes Mellitus Type 2 Hyperglycemia (HCC) Test as directed for diabetes control. 1 each 10/15/2022 Active UltiCare Pen Needle 31 gauge x 3/16 needle USE WITH INSULIN DIRECTED 400 each 3 01/29/2023 Active escitalopram (LEXAPRO) 20 mg tabletIndications:A nxiety Generalized Disorder Take 1 tablet (20 mg total) by mouth daily. 90 tablet 3 05/22/2023 Active insulin glargine (Lantus Solostar U-100 Insulin) 100 unit/mL (3 mL) injectionIndication s:Diabetes Mellitus Type 2 Hyperglycemia (HCC) Inject 25 Units under the skin at bedtime. Injected daily as directed. 22.5 mL 3 05/22/2023 05/21/2024 Active metFORMIN (GLUCOPHAGE) 1,000 mg tabletIndications:D iabetes Mellitus Type 2 Hyperglycemia (HCC) Take 1 tablet (1,000 mg total) by mouth 2 (two) times a day with meals. 180 tablet 3 05/22/2023 05/21/2024 Active lisinopriL (PRINIVIL,ZESTRIL) 2.5 mg tabletIndications:D iabetes Mellitus Type 2 Without Complication (HCC) Take 1 tablet (2.5 mg total) by mouth daily. 90 tablet 3 05/22/2023 Active busPIRone (BUSPAR) 5 mg tablet Take 1 tablet (5 mg total) by mouth 3 (three) times a day. 180 tablet 3 05/22/2023 Active Additional Information Patient not taking.Reported on 06/26/2023 atorvastatin (LIPITOR) 20 mg tabletIndications:H yperlipidemia Mixed Take 2 tablets (40 mg total) by mouth daily. 180 tablet 3 05/22/2023 05/21/2024 Active dulaglutide (TRULICITY) 1.5 mg/0.5 mL pen injector injectionIndication s:Diabetes Mellitus Type 2 Hyperglycemia (HCC) Inject 0.5 mL (1.5 mg total) under the skin every 7 (seven) days. 6 mL 3 06/26/2023 Active insulin aspart U-100 (NovoLOG FlexPen) 100 unit/mL (3 mL) injectionIndication s:Diabetes Mellitus Type 2 Hyperglycemia (HCC),Intermediate Use Of Insulin Active (HCC) Inject 5-8 Units under the skin 3 (three) times a day with meals. 30 mL 2 06/26/2023 Active lancetsIndications: Diabetes Mellitus Type 2 Hyperglycemia (HCC),Guide Plant Use Of Insulin Active (HCC) 1 each 3 (three) times a day. 180 each 3 06/26/2023 Active blood-glucose sensor (FreeStyle Nadira 3 Sensor) deviceIndications:D iabetes Mellitus Type 2 Hyperglycemia (HCC),Intermediate Use Of Insulin Active (HCC) 1 each every 14 (fourteen) days. 7 each 3 06/26/2023 Active Active Problems Problem Noted Date Diagnosed Date Inadequate Housing 02/06/2022 Abnormal Liver Function Test 01/23/2022 Morbid Obesity Body Mass Ind ex >= 35 with Comorbid Condition 01/20/2022 Other Specified Abnormal Findings Of Blood Chemi stry 01/20/2022 Body Mass Index 40.0 To 44.9 Adult 10/17/2021 Tachycardia Sinus 12/10/2020 Gastroesophageal Reflux Disease 10/26/2020 Personal History Of Infectio us And Parasitic Disease (COVID-19) 10/26/2020 Paresthesia 10/11/2020 Overview: September 2020: Left thigh and arm Post COVID. Started on gabapentin 100 mg 3 times daily with some improvement. October 11, 2020: Gabapentin increased to 300 mg 3 times daily. Hyperlipidemia Mixed 11/18/2019 Diabetes Mellitus Type 2 Hyperglycemia 8 Intermediate Use Of Insulin Active 10/29/2017 Microalbuminuria 10/29/2017 Depression Major Recurrent Moderate 04/06/2011 Anxiety Generalized Disorder 04/06/2011 Overview: Follows weekly with mental health therapist from [facility]. Resolved Problems Problem Noted Date Diagnosed Date Resolved Date Acute Respiratory Distress S yndrome Due To COVID-19 04/27/2021 10/17/2021 Cholecystitis Acute 12/15/2020 10/16/19 23 Sepsis 12/10/2020 12/11/2020 History Of Falling 10/11/2020 3 Body Mass Index 34.0 To 34.9 Adult 03/15/2020 01/23/2022 Depressive Disorder 11/02/2008 10/30/19 18 Overview: Depression Anxiety 11/02/2008 10/29/2017 Immunizations Name Administration Dates Next Due HepB Adult 05/22/2023(Deferred: Patient dec ision) Influenza TIV (IM) 02/17/2010 Influenza, Unspecified 05/22/2023(Deferred: Nayeli ent decision) PCV20 01/23/2022 PPSV23(Discontinued) 01/19/2020 SARS-COV-2 (COVID-19) - MODERNA(Discontinued) 05/22/2023(Deferred: Patient decision) SARS-COV-2 (COVID-19) - PFIZ ER (Discontinued)(12 years or older) 01/06/2021,12/15/2020 SARS-COV-2 (COVID-19) - PFIZ ER TS(Discontinued)(12 years or older) 10/17/2021 Td Preservative Free (TENIVA C, DECAVAC) 11/18/2019,11/18/2019 Tdap 12/16/2008 influenza vaccine quad (FLUZONE/FLUARIX) (6 months and older)(PF) 01/23/2022,01/19/2020,01/03/2016,2009 Social History Tobacco Use Types Packs/Day Years Used Date Smoking Tobacco: Former Smokeless Tobacco: Never Tobacco Cessation:Counseling Given: Not Answered Alcohol Use Standard Drinks/Week Comments Not Currently [...] week 12/15/2020 How often do you attend presybeterian or yazidi serv ices? Never 12/15/2020 Do you belong to any clubs o r organizations such as presybeterian groups, unions, fraternal or athletic groups, or [...] Answer Date Recorded PHQ-2 Score 4 05/22/2023 [facility] - Occupational Stress Questionnaire Answer Date Recorded [...] place to sleep or slept in a fci (including now)? No 12/15/2020 Depression Answer Date [...] Orientation Straight 09/11/2017 1: 18 PM CDT Last Filed Vital Signs Vital Sign Reading Time Taken Comments Blood Pressure 130/87 07/23/2023 5:32 PM CDT Pulse 90 07/23/2023 5:32 PM CDT Temperature 35.8 ??C (96.4 ??F) 05/22/2023 7:57 AM CS T Respiratory Rate 16 05/22/2023 7:57 AM SUSTAINABILITY PROJECT COORDINATOR Oxygen Saturation 92% 10/15/2022 7:49 AM CDT Inhaled Oxygen Concentration - - Weight 121 kg (266 lb 15.6 oz) 07/23/2023 5:32 P M CDT Height 175.7 cm (5' 9.17) 05/22/2023 7:57 AM CS T Body Mass Index 39.23 05/22/2023 7:57 AM SUSTAINABILITY PROJECT COORDINATOR Plan of Treatment Upcoming Encounters Date Type Department Care Team (Late st Contact Info) Description 08/20/2023 8:00 AM CDT Office Visit Department of Family Medicine, [facility], in [address] [phone] [facility] APRN, C.N.P., D.N.P. [address] [phone] Goals Goal Patient Goal Type Associated Problems Recent Progress Patient-Stated? Author Self Management of DM General On track( 021 1:57 PM CDT) No Arelis Mckeon, R.N. Note: DIABETES TYPE 2 EAT WELL [...] control General On track( 022 1:18 PM SUSTAINABILITY PROJECT COORDINATOR) Yes Arelis Mckeon RMikeN. Note: He would like to get stronger, Keep his diabetes managed well Wean off the oxygen when he is able Medical Devices Implanted Type Area Pot Pusher Device Identifier Shelf Expiration Date Model / Serial / Lot Hardware E.G. Pins/Screws/R ods Hardware e.g. pins/screws/ rods Right: Shoulder Procedures Procedure Name Priority Date/Time Associated Diagnosis Comments DX FOOT RIGHT 3+ VIEWS RAD - Routine (most inpatients and all outpatients) 07/23/2023 5:57 PM CDT Pain Foot Right DX ANKLE RIGHT 3+ VIEWS RAD - Routine (most inpatients and all outpatients) 07/23/2023 5:56 PM CDT Pain Ankle Right ALBUMIN, RANDOM, U Routine 05/22/2023 8: 42 AM SUSTAINABILITY PROJECT COORDINATOR Diabetes Mellitus Type 2 Hyperglycemia (HCC) HEMOGLOBIN A1C, B Routine 05/21/2023 8:5 1 AM SUSTAINABILITY PROJECT COORDINATOR Diabetes Mellitus Type 2 Hyperglycemia (HCC) LIPID PANEL, S Routine 10/15/2022 8:52 AM CDT Hyperlipidemia Mixed COMPREHENSIVE METABOLIC PANEL, S/P Routine 10/15/2022 8:52 AM CDT Diabetes Mellitus Type 2 Hyperglycemia (HCC) Abnormal Liver Function Test HCV AB SCRN W/REFLEX TO HCV PCR, S Routine 05/10/2022 10:01 AM SUSTAINABILITY PROJECT COORDINATOR Screening Examination For Viral Disease HIV-1/-2 AG AND AB SCREEN, PLASMA Routine 05/10/2022 10:01 AM SUSTAINABILITY PROJECT COORDINATOR Screening Examination For Viral Disease from Last 3 Months or Most Recently Relevant to Health Maintenance Results * DX Foot Right 3+ Views [...] Soft tissue is within normallimits. Ambar Sarmiento APRN C.N.P., D.N.P. [facility] AGNOSTIC IMAGING PROCEDURES * DX Ankle Right 3+ Views (07/23/2023 [...] within normallimits. Ambar Sarmiento APRN, C.N.P., D.N.P. [facility] DI AGNOSTIC IMAGING PROCEDURES * (ABNORMAL) Albumin, Random, Urine (05/22/2023 8:42 AM SUSTAINABILITY PROJECT COORDINATOR) Microalbumin 20.0 mg/L 05/22/2023 2:47 PM SUSTAINABILITY PROJECT COORDINATOR OWAT Creatinine 17 mg/dL 05/22/2023 2:47 PM SUSTAINABILITY PROJECT COORDINATOR OWAT Albumin/Creatinin e Ratio 118(H) <17 mg/g 05/22/2023 2:47 PM SUSTAINABILITY PROJECT COORDINATOR OWAT Urine (Urine, Midstream) 05/22/2023 8:42 AM SUSTAINABILITY PROJECT COORDINATOR 05/22/2023 1:17 PM SUSTAINABILITY PROJECT COORDINATOR Liliana Rodriguez APRN, C.N.P., D .N.P. LAB URINE ORDERABLES [facility] [address] [place] [address], [place] OWAT [facility] [place] [address] [place] [address] * (ABNORMAL) Hemoglobin A1c (05/21/2023 8:51 AM SUSTAINABILITY PROJECT COORDINATOR) Hemoglobin A1c, B 11.0(H) 4.2 - 5.6 % 05/21/2023 2:04 PM SUSTAINABILITY PROJECT COORDINATOR OWAT Comment: Hemoglobin A1c values greater than or equal to 6.5 percent are diagnostic for diabetes mellitus. ??Diagnosis should be confirmed by repeat testing. ??In diabetic patients, HbA1c goals should be discussed with healthcare provider. Blood (Blood, Venous) 05/21/2023 8:51 AM SUSTAINABILITY PROJECT COORDINATOR 05/21/2023 1:45 PM SUSTAINABILITY PROJECT COORDINATOR Liliana Rodriguez APRN, C.N.P., D .N.P. LAB BLOOD ADD-ON [facility] [address] [place] [address], [place] OWAT [facility] [place] [address] [place] [address] * (ABNORMAL) Lipid Panel (10/15/2022 8:52 AM CDT) Triglycerides 317(H) mg/dL 10/15/2022 11:36 AM CDT OWAT Comment: ----REFERENCE VALUE---- Normal: <150 mg/dL Borderline High: 150-199 mg/dL High: 200-499 mg/dL Very High: > or =500 mg/dL Cholesterol, Total 228(H) mg/dL 2022 11:36 AM CDT OWAT Comment: ----REFERENCE VALUE---- Desirable: < 200 mg/dL Borderline High: 200 - 239 mg/dL High: > or = 240 mg/dL Cholesterol, LDL, Calculated 133(H) mg/dL 10/15/2022 11:36 AM CDT OWAT Comment: ----REFERENCE VALUE---- Desirable: <100 mg/dL Above Desirable: 100-129 mg/dL Borderline High: 130-159 mg/dL High: 160-189 mg/dL Very High: >=190 mg/dL ----ADDITIONAL INFORMATION---- LDL cholesterol calculated using the Huerta/NIH equation. Cholesterol, HDL 38(L) >=40 mg/dL 10/16/19 11:36 AM CDT OWAT Cholesterol, Non-HDL, Calculated 190(H) mg/dL 10/15/2022 11:36 AM CDT OWAT Comment: ----REFERENCE VALUE---- Desirable: <130 mg/dL Above Desirable: 130-159 mg/dL Borderline High: 160-189 mg/dL High: 190-219 mg/dL Very High: > or =220 mg/dL Fasting (8 HR or more) No 10/15/2022 11:06 AM CDT OWAT Blood (Blood, Venous) 10/15/2022 8:52 AM CDT 10/15/2022 11:06 AM CDT Zacarias Conn M.D. LAB BLO OD ADD-ON [facility] [address] [place] [address], [facility] OWAT [facility] [place] [address] [place] [address] * (ABNORMAL) Comprehensive Metabolic Panel (10/15/2022 8:52 AM CDT) Potassium, P 4.6 3.6 - 5.2 mmol/L 10/15/2022 11:36 AM CDT OWAT Sodium, P 135 135 - 145 mmol/L 10/15/2022 11:36 AM CDT OWAT Chloride, P 99 98 - 107 mmol/L 10/15/2022 11:36 AM CDT OWAT Bicarbonate, P 23 22 - 29 mmol/L 10/15/2022 11:36 AM CDT OWAT Anion Gap, P 13 7 - 15 10/15/2022 11:36 AM CDT OWAT BUN (Blood Urea Nitrogen), P 13 8 - 24 mg/dL 10/15/2022 11:36 AM CDT OWAT Creatinine 0.58(L) 0.74 - 1.35 mg/dL 10/15/2022 11:36 AM CDT OWAT Estimated GFR (eGFR) >90 >=60 mL/min/BS A 10/15/2022 11:36 AM CDT OWAT Comment: Estimated GFR calculated using the 2020 CKD_EPI creatinine equation. Calcium, Total, P 9.2 8.6 - 10.0 mg/dL 10/15/2022 11:36 AM CDT OWAT Glucose, P 457(CH) 70 - 140 mg/dL 10/15/2022 12:44 PM CDT OWAT Protein, Total, P 7.2 6.3 - 7.9 g/dL 10/15/2022 11:36 AM CDT OWAT Albumin, P 4.3 3.5 - 5.0 g/dL 10/15/2022 11:36 AM CDT OWAT Aspartate Aminotransferase (AST), P 37 8 - 48 U/L 10/15/2022 11:36 AM CDT OWAT Alkaline Phosphatase, P 190(H) 40 - 129 U/L 10/15/2022 11:36 AM CDT OWAT Alanine Aminotransferase (ALT), P 58(H) 7 - 55 U/L 10/15/2022 11:36 AM CDT OWAT Bilirubin, Total, P 0.5 <=1.2 mg/dL 10/15/2022 11:36 AM CDT OWAT Blood (Blood, Venous) 10/15/2022 8:52 AM CDT 10/15/2022 11:06 AM CDT Zacarias Conn M.D. LAB BLO OD ADD-ON [facility] [address] [place] [address], [facility] OWAT [facility] [place] [address] [place] [address] * HIV-1/-2 Ag and Ab Screen, Plasma (05/10/2022 10:01 AM SUSTAINABILITY PROJECT COORDINATOR) HIV Ag/Ab Screen, P Negative Negative 05/11/2022 12:51 AM SUSTAINABILITY PROJECT COORDINATOR [facility] Comment: Negative result does not rule out HIV infection. If exposure to HIV infection occurred <14 days ago, contact the laboratory to request addition of HIV-1 RNA detection / quantification test. HIV-1 p24 Ag Screen, P Negative Negative 05/11/2022 12:51 AM SUSTAINABILITY PROJECT COORDINATOR [facility] Comment: Negative result does not rule out HIV infection. If exposure to HIV infection occurred <14 days ago, contact the laboratory to request addition of HIV-1 RNA detection / quantification test. HIV-1 Ab Screen, P Negative Negative 2022 12:51 AM SUSTAINABILITY PROJECT COORDINATOR [facility] Comment: Negative result does not rule out HIV infection. If exposure to HIV infection occurred <14 days ago, contact the laboratory to request addition of HIV-1 RNA detection / quantification test. HIV-2 Ab Screen, P Negative Negative 2022 12:51 AM SUSTAINABILITY PROJECT COORDINATOR [facility] Comment: Negative result does not rule out HIV infection. If exposure to HIV infection occurred <14 days ago, contact the laboratory to request addition of HIV-1 RNA detection / quantification test. Blood (Blood, Venous) 05/10/2022 10:01 AM SUSTAINABILITY PROJECT COORDINATOR 05/10/2022 6:05 PM SUSTAINABILITY PROJECT COORDINATOR Tabatha ShelbyAMike, R.N. LAB MICROBIOL OGY - BLOOD ORDERABLES [facility] [address] [facility] [place] [address], [facility] [place] [address] [facility] [place] [address] * HCV Ab Scrn w/Reflex to HCV PCR, Serum (05/10/2022 10:01 AM SUSTAINABILITY PROJECT COORDINATOR) HCV Ab Screen, S Negative Negative 05/11/2022 8:06 AM SUSTAINABILITY PROJECT COORDINATOR [facility] Comment:Staula-vr-vzjkeo rat io is <1.00. Blood (Blood, Venous) 05/10/2022 10:01 AM SUSTAINABILITY PROJECT COORDINATOR 05/11/2022 7:03 AM SUSTAINABILITY PROJECT COORDINATOR Tabatha Ford, R.N. LAB MICROBIOL OGY - BLOOD ORDERABLES [facility] [address] [place] [address] [facility] [address] [place] [address] from Last 3 Months or Most Recently Relevant to Health Maintenance Advance Directives For more information, please contact: [phone] * Full Code (Latest Code Status on File) Date Activated Date Inactivated Comments 12/09/2020 11:14 PM 12/11/2020 2:56 PM Question Answer Comments Full Code: Discussed Care Teams Theatrical Scenic Designer Relationship Specialty Start Date End Date Liliana Rodriguez APRN, C.N.P., D.N.P. [address] [place] [phone] [facility] - General 10/01/22
--- OUTSIDE RECORDS SUMMARY | 2023-08-02 03:05 | XMS_ITS | Clinical Summary ---
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 P [facility] Care Provider Source Comments Patient records contain information from all sites at [facility]. For routine questions regarding patient records, call [phone] during business hours, M-F 8:00 AM - 5:00 PM Central Time. Record requests for emergency care only can be directed to [phone] at any time.[facility] Allergies No known active allergies Medications Medication [...] bedtime. Injected daily as directed. 22.5 mL 05/22/2023 05/21/2024 Active metFORMIN (GLUCOPHAGE) 1,000 mg tabletIndications:D iabetes Mellitus Type 2 Hyperglycemia (HCC) Take 1 tablet (1,000 mg total) by mouth 2 (two) times a day with meals. 180 tablet 05/22/2023 05/21/2024 Active lisinopriL (PRINIVIL,ZESTRIL) 2.5 mg tabletIndications:D iabetes Mellitus Type 2 Without Complication (HCC) Take 1 tablet (2.5 mg total) by mouth daily. 90 tablet 05/22/2023 Active busPIRone (BUSPAR) 5 mg tablet Take 1 tablet (5 mg total) by mouth 3 (three) times a day. 180 tablet 05/22/2023 Active Additional Information Patient not taking.Reported on 06/26/2023 atorvastatin (LIPITOR) 20 mg tabletIndications:H yperlipidemia Mixed Take 2 tablets (40 mg total) by mouth daily. 180 tablet 05/22/2023 05/21/2024 Active dulaglutide (TRULICITY) 1.5 mg/0.5 mL pen injector injectionIndication s:Diabetes Mellitus Type 2 Hyperglycemia (HCC) Inject 0.5 mL (1.5 mg total) under the skin every 7 (seven) days. 6 mL 3 06/26/2023 Active insulin aspart U-100 (NovoLOG FlexPen) 100 unit/mL (3 mL) injectionIndication s:Diabetes Mellitus Type 2 Hyperglycemia (HCC),Shelter Use Of Insulin Active (HCC) Inject 5-8 Units under the skin 3 (three) times a day with meals. 30 mL 2 06/26/2023 Active lancetsIndications: Diabetes Mellitus Type 2 Hyperglycemia (HCC),Plate Stacker Use Of Insulin Active (HCC) 1 each 3 (three) times a day. 180 each 3 06/26/2023 Active blood-glucose sensor (FreeStyle Nadira 3 Sensor) deviceIndications:D iabetes Mellitus Type 2 Hyperglycemia (HCC),Shelter Use Of Insulin Active (HCC) 1 each [...] 11/18/2019 Diabetes Mellitus Type 2 Hyperglycemia 8 Shelter Use Of Insulin Active 10/29/2017 Microalbuminuria 10/29/2017 Depression Major Recurrent Moderate 04/06/2011 Anxiety Generalized Disorder 04/06/2011 Overview: Follows weekly with mental health therapist from [facility]. Resolved Problems Problem Noted Date Diagnosed Date Resolved Date Acute Respiratory Distress S yndrome Due To COVID-19 04/27/2021 10/17/2021 Cholecystitis Acute 12/15/2020 10/16/19 23 Sepsis 12/10/2020 12/11/2020 History Of Falling 10/11/2020 Body Mass Index 34.0 To 34.9 Adult 03/15/2020 01/23/2022 Depressive Disorder 11/02/2008 10/30/19 18 Overview: Depression Anxiety 11/02/2008 10/29/2017 Encounters Date Type Department Care Team Description 07/23/2023 6:00 PM CDT Office Visit Department of Family Medicine, [facility], in [place], [place] [address] [phone] Ambar Sarmiento, ORACIO, C.N.P., D.N.P. Pain Ankle Right (Primary Dx); Pain Foot Right; Sprain Ankle Initial Right 07/23/2023 4:45 PM CDT - 07/23/2023 11:59 PM CDT Hospital Encounter Department of Radiology in [address] [phone] Ambar Sarmiento APRN, C.N.P., D.N.P. Pain Foot Right Discharge Disposition: Home or Self Care 07/23/2023 4:30 PM CDT - 07/23/2023 4:44 PM CDT Hospital Encounter Department of Radiology in [address] [phone] Ambar Sarmiento APRN C.N.P., D.N.P. Pain Ankle Right Discharge Disposition: Home or Self Care 07/01/2023 Clinical Communication Department of Family Medicine, [facility], in [address] [address] Dayana Adams R.N. Quality (D5) 06/26/2023 9:00 AM CDT Virtual Visit Department of Family Medicine in [address] [phone] JerryLiliana Cardozo APRN, C.N.PMike, D.N.P. Gloria Kitchen Pharm.DMike, BCACP, R.Ph. Medication Management Issue (Primary Dx); Diabetes Mellitus Type 2 Hyperglycemia (HCC); Plate Stacker Use Of Insulin Active (HCC) 05/22/2023 8:40 AM [employer] FOUNDER [employer] CEO - 05/22/2023 11:59 PM [employer]ER [employer] CEO Hospital Encounter Department of Laboratory Medicine in [address] [phone] Liliana Rodriguez APRN, C.N.PMike, D.N.P. Diabetes Mellitus Type 2 Hyperglycemia (HCC) Discharge Disposition: Home or Self Care 05/22/2023 8:00 AM [employer]OUNDER [employer] CEO Office Visit Department of Family Medicine, [facility], in [address] [phone] PollockLiliana Horta APRN, C.N.P., D.N.P. Diabetes Mellitus Type 2 Hyperglycemia (HCC) (Primary Dx); Hyperlipidemia Mixed; Anxiety Generalized Disorder; Diabetes Mellitus Type 2 Without Complication (HCC); Microalbuminuria; Depression Major Recurrent Moderate (HCC); Morbid Obesity Body Mass Index >= 35 with Comorbid Condition (HCC); Inadequate Housing Unspecified 05/21/2023 8:20 AM [employer] FOUNDER [employer] CEO - 05/21/2023 11:59 PM [employer] CEO Hospital Encounter Department of Laboratory Medicine in [address] [phone] PollockLiliana Horta APRN, C.N.P., D.N.P. Diabetes Mellitus Type 2 Hyperglycemia (HCC) Discharge Disposition: Home or Self Care 05/14/2023 Clinical Communication Department of Family Medicine, [facility], in [address] [address] Dayana Adams R.N. Quality (D5) from Last 3 Months Immunizations Name Administration Dates Next Due HepB [...] quad (FLUZONE/FLUARIX) (6 months and older)(PF) 01/23/2022,01/19/2020,01/03/2016,2009 Family History Medical History Relation Name Comments Drug abuse Cousin Alcohol abuse Father Relation Name Status Comments Cousin Father Social History Tobacco Use Types Packs/Day Years [...] week 12/15/2020 How often do you attend adventism or samaritan serv ices? Never 12/15/2020 Do you belong to any clubs o r organizations such as adventism groups, unions, fraternal or athletic groups, or [...] Answer Date Recorded PHQ-2 Score 4 05/22/2023 [facility] - Occupational [...] Date Recorded Dental: Regular Dentist No 04/05/20 Employment Answer Date Recorded Employment status Unemployed/not [...] T Respiratory Rate 16 05/22/2023 7:57 AM [employer]OUNDER [employer] CEO Oxygen Saturation 92% 10/15/2022 7:49 AM CDT Inhaled Oxygen Concentration - - Weight 121 kg (266 lb 15.6 oz) 07/23/2023 5:32 P M CDT Height 175.7 cm (5' 9.17) 05/22/2023 7:57 AM CS T Body Mass Index 39.23 05/22/2023 7:57 AM [employer] FOUNDER [employer] CEO Plan of Treatment Upcoming Encounters Date Type Department Care Team (Late st Contact Info) Description 08/20/2023 8:00 AM CDT Office Visit Department of Family Medicine, [facility], in [address] [place] [phone] Jerry-Liliana Cardozo APRN, C.N.P., D.N.P. [address] [place] [address] Health Maintenance Due Date Last Done Comments Hepatitis B Vaccines (1 of 3 - 19+ 3-dose series) 01/26/2000 Diabetes Education 10/29/2017 COVID-19 Vaccine ( season) 2022 10/17/2021, 01/06/2021, 12/15/2020 Influenza Vaccine (#1) 2023 , 01/19/2020, 01/03/2016, Additional history exists Dilated Eye Exam 03/08/2023 03/08/2022, 11/15/2017 Hemoglobin A1C 08/19/2023 05/21/2023, 11/0 06/2022, 10/15/2022, Additional history exists Depression Monitoring (PHQ-9) 09/20/2023 05/22/2023 Creatinine Level (Kidney Function Test) 10/16/2023 10/15/2022, 05/10/2022, 10/13/2021, Additional history exists Diabetic Office Visit with Foot Exam 10/16/2023 10/15/2022, 10/17/2021, 10/11/2020, Additional history exists Potassium Level 10/16/2023 10/15/2022, 02/0 05/2022, 10/13/2021, Additional history exists Sodium Level 10/16/2023 10/15/2022, 02/0 05/2022, 10/13/2021, Additional history exists Urine Albumin 05/22/2024 05/22/2023, 11/0 06/2022, 05/10/2022, Additional history exists Visit: Chronic Disease, age 18+ 05/22/2024 05/22/2023 Office Visit for Blood Pressure Check / Re-check 07/22/2024 07/23/2023 Lipid (Cholesterol) Screening 10/16/2027 10/15/2022, 01/23/2022, 02/23/2021, Additional history exists DTaP,Tdap,and Td Vaccines (4 - Td or Tdap) 11/17/2029 11/18/2019, 11/18/2019, 12/16/2008 Pneumococcal vaccine (0-64 years) Completed 01/23/2022, 01/19/2020 HIV Screening Completed 05/10/2022 Hepatitis C Screening Completed 05/10/2022 Glucose Test for Med Monitoring Discontinued 05/21/2023, 02/08/2023, 10/15/2022, Additional history exists HPV Vaccines Aged Out No longer eligi ble based on patient's age to complete this topic Goals Goal Patient Goal Type Associated Problems [...] control General On track( 022 1:18 PM [employer] FOUNDER [employer] CEO) Yes Arelis Mckeon R.N. Note: He would like to get stronger, Keep his diabetes managed well Wean off the oxygen when he is able Medical Devices Implanted Type Area Auto [employer] Manager Device Identifier Shelf Expiration Date Model / [...] RANDOM, U Routine 05/22/2023 8: 42 AM [employer] FOUNDER [employer] CEO Diabetes Mellitus Type 2 Hyperglycemia (HCC) HEMOGLOBIN A1C, B Routine 05/21/2023 8:5 1 AM [employer] CEO Diabetes Mellitus Type 2 Hyperglycemia (HCC) LIPID PANEL, S Routine 10/15/2022 8:52 AM CDT Hyperlipidemia Mixed COMPREHENSIVE METABOLIC PANEL, S/P Routine 10/15/2022 8:52 AM CDT Diabetes Mellitus Type 2 Hyperglycemia (HCC) Abnormal Liver Function Test HCV AB SCRN W/REFLEX TO HCV PCR, S Routine 05/10/2022 10:01 AM [employer]ER [employer] CEO Screening Examination For Viral Disease HIV-1/-2 AG AND AB SCREEN, PLASMA Routine 05/10/2022 10:01 AM [employer]OUNDER [employer] CEO Screening Examination For Viral Disease from Last [...] within normallimits. Ambar Sarmiento APRN, C.N.P., D.N.P. ROSY DI AGNOSTIC IMAGING PROCEDURES * DX Ankle [...] are preserved. Soft tissue is within normallimits. Jazmin Conner APRN.N.P., D.N.P. IMG DI AGNOSTIC IMAGING PROCEDURES * (ABNORMAL) Albumin, Random, Urine (05/22/2023 8:42 AM [employer] FOUNDER & CEO) Microalbumin 20.0 mg/L 05/22/2023 2:47 PM [employer] FOUNDER [employer] CEO OWAT Creatinine 17 mg/dL 05/22/2023 2:47 PM [employer]ER [employer] CEO [employer]AT Albumin/Creatinin e Ratio 118(H) <17 mg/g 05/22/2023 2:47 PM [employer]ER [employer] Urine (Urine, Midstream) 05/22/2023 8:42 AM [employer] FOUNDER & CEO 05/22/2023 1:17 PM [employer]OUNDER [employer] CEO Jazmin Graf APRN.N.P., D .N.P. LAB URINE ORDERABLES Performing Organization Address [facility] Co de Phone Number [facility] [address] [place] [address], [facility] in [place] [address], [place] [address] * (ABNORMAL) Hemoglobin A1c (05/21/2023 8:51 AM CO FOUNDER & CEO) Hemoglobin A1c, B 11.0(H) 4.2 - 5.6 % 05/21/2023 2:04 PM [employer]OUNDER [employer] CEO [facility]AT Comment: Hemoglobin A1c values greater than or equal to 6.5 percent are diagnostic for diabetes mellitus. ??Diagnosis should be confirmed by repeat testing. ??In diabetic patients, HbA1c goals should be discussed with healthcare provider. Blood (Blood, Venous) 05/21/2023 8:51 AM [employer] FOUNDER & CEO 05/21/2023 1:45 PM [employer] FOUNDER [employer] CEO Jazmin Graf APRN.N.P., D .N.P. LAB BLOOD ADD-ON Performing Organization Address City/[facility]/ZIP Co de Phone Number [facility] [address] [place] [id number], [facility] in [place] [place] [address] * (ABNORMAL) Lipid Panel (10/15/2022 8:52 AM [...] Zacarias Conn M.D. LAB BLO OD ADD-ON [facility] [address] [place] [address], [facility] in [place] [address] [place] [address] * (ABNORMAL) Comprehensive Metabolic Panel (10/15/2022 8:52 [...] Zacarias Conn M.D. LAB BLO OD ADD-ON [facility] [address] [place] [address], [facility] in [place] [address] [place] [address] * HIV-1/-2 Ag and Ab Screen, Plasma (05/10/2022 10:01 AM CO FOUNDER & CEO) HIV Ag/Ab Screen, P Negative Negative 05/11/2022 12:51 AM CO FOUNDER & CEO [facility] Comment: Negative result does not rule out HIV infection. If exposure to HIV infection occurred <14 days ago, contact the laboratory to request addition of HIV-1 RNA detection / quantification test. HIV-1 p24 Ag Screen, P Negative Negative 05/11/2022 12:51 AM [employer] FOUNDER & CEO [facility] Comment: Negative result does not rule out HIV infection. If exposure to HIV infection occurred <14 days ago, contact the laboratory to request addition of HIV-1 RNA detection / quantification test. HIV-1 Ab Screen, P Negative Negative 2022 12:51 AM [employer] FOUNDER & CEO [facility] Comment: Negative result does not rule out HIV infection. If exposure to HIV infection occurred <14 days ago, contact the laboratory to request addition of HIV-1 RNA detection / quantification test. HIV-2 Ab Screen, P Negative Negative 2022 12:51 AM [employer] FOUNDER [employer] CEO [facility] Comment: Negative result does not rule out HIV infection. If exposure to HIV infection occurred <14 days ago, contact the laboratory to request addition of HIV-1 RNA detection / quantification test. Blood (Blood, Venous) 05/10/2022 10:01 AM [employer] FOUNDER & CEO 05/10/2022 6:05 PM [employer] FOUNDER [employer] CEO Tabatha Ford, R.N. LAB MICROBIOL OGY - BLOOD ORDERABLES [facility] [address] [place] [id number], [facility] in [place] [address] [place] [address] * HCV Ab Scrn w/Reflex to HCV PCR, Serum (05/10/2022 10:01 AM CO FOUNDER & CEO) HCV Ab Screen, S Negative Negative 05/11/2022 8:06 AM CO FOUNDER & CEO [facility] Comment:Gzdota-tu-zhlfeo rat io is <1.00. Blood (Blood, Venous) 05/10/2022 10:01 AM [employer] FOUNDER & CEO 05/11/2022 7:03 AM [employer] FOUNDER [employer] CEO Tabatha Ford, R.N. 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 [address] [place] [address] PCP - General 10/01/22
--- OUTSIDE RECORDS SUMMARY | 2023-08-02 03:06 | XMS_ITS | Encounter Summary ---
Author Name Unknown Organization [facility] Address [address] [place] [address] Care Team Providers Care Day Care Teacher Name Role Phone Liliana Rodriguez APRN, C.N.P., D.N.P. P [facility] Care Provider Reason for Referral * Outpatient (Routine) - Authorized Specialty Diagnoses / Procedures Referred By Kurt silva Referred To Contact Pharmacy Diagnoses Diabetes Mellitus Type 2 Hyperglycemia (HCC) Medication Management Issue Retirement Use Of Insulin Active (HCC) Liliana Rodriguez APRN, C.N.P., D.N.P. [address] [place] [address] [facility] Region Referral ID Status Reason Start Date Expiration Date V isits Requested Visits Authorized [id number] Authorized 06/26/2023 12/25/2024 1 1 Reason for Visit * Outpatient (Routine) - Closed Specialty Diagnoses / Procedures Referred By Kurt silva Referred To Contact Pharmacy Diagnoses Diabetes Mellitus Type 2 Hyperglycemia (HCC) Liliana Rodriguez APRN, C.N.P., D.N.P. [address] [place] [address] [facility] Region Referral ID Status Reason Start Date Expiration Date Visits Re quested Visits Authorized [id number] Closed 05/22/2023 11/20/2024 1 1 Encounter Details Date Type Department Care Team (Late st Contact Info) Description 06/26/2023 9:00 AM CDT Virtual Visit Department of Family Medicine in [place], [place] [address] [address] Liliana Rodriguez APRN, C.N.P., D.N.P. [address] [address] Gloria Kitchen, PharmMikeD., BCACP, R.Ph. [address] [address] Medication Management Issue (Primary Dx); Diabetes Mellitus Type 2 Hyperglycemia (HCC); Retirement Use Of Insulin Active (HCC) Social History Tobacco Use Types Packs/Day Years [...] week 12/15/2020 How often do you attend restorationism or episcopal serv ices? Never 12/15/2020 Do you belong to any clubs o r organizations such as restorationism groups, unions, fraternal or athletic groups, or [...] Answer Date Recorded PHQ-2 Score 4 05/22/2023 [facility] - Occupational Stress Questionnaire Answer Date Recorded [...] place to sleep or slept in a senior living (including now)? No 12/15/2020 Depression Answer Date [...] PM CDT documented as of this encounter Consult Notes * Gloria Kitchen, Pharm.D., R.Ph. - 06/26/2023 9:00 AM CDT Medication Management Services (MMS) SUBJECTIVE Felix Briceno is a 43 y.o. male, who is contacted via phone by [facility] Pharmacist to the patient in patient's home in [place] for comprehensive medication review with a focus on diabetes. As the provider for this telehealth service, I attest that I introduced myself to the patient/patientrepresentative, provided my credentials, disclosed my location, and determined that, based on a review of the patient's chart and/or a discussion with members of the patient's treatment team, a telehealth visit is an appropriate and effective means of providing this service. It was also mutually agreed that this visit is appropriate for telehealth. He was referred by Liliana Rodriguez APRN, C.N.P., D.N.P. . Patient was at the visit unaccompanied. The patient does not appear cognitively impaired at this visit. Patient???s purpose of visit today is discussing glucose control. Diabetes: Patient reports the following notable symptoms of hyperglycemia: fatigue. Patient has never experienced hypoglycemic events. Patient is not able to identify symptoms of hypoglycemia. Glucose monitoring: bedtime. Glucose readings: 157-284 mg/dL (patient reported) Medication Adherence Medication reconciliation: reviewed prescription medications, [id number] medications, and vitamin and supplements with patient from original bottles, patient's home medication list, and electronic health record (EHR) medication list Adherence strategies: none Medication timing: morning, noon, and evening Medication convenience: Concern(s) regarding: timing of medications. NO concern(s) regarding: dosage form, pill size, and medication cost. The following portions of the patient's history were reviewed and updated as appropriate: allergies, current medications, family history, medical history, social history, surgical history and problemlist. Pertinent patient lifestyle habits, preferences and beliefs, health and functional goals, health literacy, cultural factors and socioeconomic factors were assessed at this appointment with no concerns noted. OBJECTIVE Wt Readings from Last 3 Encounters: 05/22/23 123 kg 02/22/23 123 kg 10/15/22 116 kg BMI Readings from Last 3 Encounters: 05/22/23 39.89 kg/m?? 02/22/23 39.71 kg/m?? 10/15/22 37.83 kg/m?? Pulse Readings from Last 3 Encounters: 05/22/23 105 02/22/23 89 10/15/22 93 BP Readings from Last 3 Encounters: 05/22/23 126/82 02/22/23 127/81 10/15/22 120/84 Albumin/Creatinine Ratio Date Value Ref Range Status 05/22/2023 118 (H) <17 mg/g Final Lab Results Component Value Date CHOL 228 (H) 10/15/2022 CHOL 197 01/23/2022 CHOL 190 02/23/2021 Lab Results Component Value Date HDL 38 (L) 10/15/2022 HDL 39 (L) 01/23/2022 HDL 43 02/23/2021 Lab Results Component Value Date LDLCALC 133 (H) 10/15/2022 LDLCALC 121 01/23/2022 LDLCALC 94 02/23/2021 Lab Results Component Value Date TRIG 317 (H) 10/15/2022 TRIG 209 (H) 01/23/2022 TRIG 264 (H) 02/23/2021 Lab Results Component Value Date TTLCHOLHDLRT 5.55 (H) 10/24/2017 Lab Results Component Value Date TSH 3.4 11/18/2019 Lab Results Component Value Date NA 135 10/15/2022 KPLASMA 4.6 10/15/2022 CL 99 10/15/2022 BICARB 23 10/15/2022 CREATININE 0.58 (L) 10/15/2022 EGFR >90 10/15/2022 EGFRNONBLKAA >90 10/13/2021 EGFRBLKAA >90 10/13/2021 BUN 13 10/15/2022 ANIONGAP 13 10/15/2022 GLUCOSE 457 (Crit H) 10/15/2022 CALCIUM 9.2 10/15/2022 Lab Results Component Value Date ALT 58 (H) 10/15/2022 AST 37 10/15/2022 ALKPHOS 190 (H) 10/15/2022 BILITOT 0.5 10/15/2022 Lab Results Component Value Date HGBA1C 11.0 (H) 05/21/2023 HGBA1C 10.9 (H) 02/08/2023 HGBA1C 13.0 (H) 10/15/2022 Estimated Creatinine Clearance: 215.7 mL/min (A) (by C-G formula based on SCr of 0.58 mg/dL (L)). The 10-year ASCVD risk score (Fabby AGUERO, et al., 2019) is: 4.9% Diabetes Optimal Care Composite Score: 4 Values used to calculate this score: Points Metrics 0 Diabetes Optimal Care Composite - HbA1c: 0 1 Diabetes Optimal Care Composite - Blood Pressure: 1 1 Diabetes Optimal Care Composite - Aspirin/Antithrombotic: 1 1 Diabetes Optimal Care Composite - LDL/Statin Use: 1 1 Diabetes Optimal Care Composite - Smoking Status : 1 Topic Date Due Hepatitis B Vaccines (1 of 3 - 19+ 3-dose series) Never done COVID-19 Vaccine (2022-24 season) 2022 Influenza Vaccine (1) 01/06/2023 ASSESSMENT / PLAN Assessment: Pharmacotherapy was reviewed today with a patient-centered approach for indication, effectiveness, safety and convenience, taking into account pertinent health and functional status, risk factors, health data, cultural factors, health literacy and access to medications. Medication list discrepancies: none Medication adherence: Issues identified: forgetfulness. Renal dosing: no concerns Hepatic dosing: no concerns Drug-drug interactions of clinical significance: none Drug-disease interactions of clinical significance: none 1. Diabetes: Patient has Type 2 Diabetes that is uncontrolled on current therapy of Trulicity 0.75mg once weekly, metformin 1000mg twice daily, Lantus 25 units once daily and Novolog 5-6 units three times daily with meals, . Patient???s most recent A1C was above goal of less than 7% and glucose readings are not at goal of 2 hour post-prandial less than 180 mg/dL. Patient's reported glucose readings are significantly elevated at bedtime with multiple readings above 250 mg/dL. Patient reports he does not check his glucose readings at any other time of the day including prior to eating. Patient does admit to occasionally forgetting to take mealtime insulin at work when things get crazy. Discussed with patient the option of trying to maximize Trulicity dose in hopes of minimizing the reliancewe need to have on mealtime insulin in order to improve his medication burden. Patient in agreementwith that plan. Will increase Trulicity dose in hopes of assisting with glucose control. Will also try to attempt to get patient a continuous glucose monitor, My Pick Boxstyle Naidra 3, in order to get more data on glucose readings throughout the day. Patient???s next A1C is due on August 2023. Signs and symptoms of hypoglycemia and methods for correction were reviewed with the patient. Patient is meeting 4/5 diabetes quality metrics. Patient is not meeting A1c quality measure. The following medications and/or conditions were reviewed by pharmacist and found to be appropriatewith no medication-related problems at this time: Atorvastatin, escitalopram, lisinopril Plan: The following action(s) were taken under the authority of the collaborative practice agreement unless otherwise noted. Recommend continuing metformin 1000 mg twice daily, Lantus 25 units once daily and NovoLog 5-6 units 3 times daily with meals. Recommend increasing to Trulicity 1.5 mg once weekly with plans to assess efficacy in 4-6 weeks. Recommend continuing to monitor glucose readings at minimum once daily; patient to look into obtaining a continuous glucose monitor. Follow-up with pharmacist in one month via patient preference for mode of visit for glucose review and medication adjustments . Janak expressed understanding of, and agreement with plan of care. He was provided a verbal summary of these recommendations. Total time spent was 25 minutes, with more than 50% of the time spent on counseling, coordination of care and patient education. Plan of care was communicated to the primary care provider via an electronically routed chart. documented in this encounter Plan of Treatment Upcoming Encounters Date Type Department Care Team (Late st Contact Info) Description 08/20/2023 8:00 AM CDT Office Visit Department of Family Medicine, [facility], in [place], [place] [address] [place] [address] JerryLiliana Cardozo APRN, C.N.P., D.N.P. [address] [address] Scheduled Referrals Name Type Priority Associated Diagnoses Orde r Schedule Pharmacy - Medication therapy management office visit (clinic) Outpatient Referral Routine Diabetes Mellitus Type 2 Hyperglycemia (HCC) Medication Management Issue Retirement Use Of Insulin Active (HCC) Expected: 07/24/2023, Expires: 09/25/2024 documented as of this encounter Goals Goal [...] control General On track( 022 1:18 PM MARINE ENGINEERING PROFESSOR) Yes Arelis Mckeon, R.N. Note: He would like to get stronger, Keep his diabetes managed well Wean off the oxygen when he is able documented as of this encounter Visit Diagnoses Diagnosis Medication Management Issue- Primary Diabetes Mellitus Type 2 Hyperglycemia (HCC) Retirement Use Of Insulin Active (HCC) documented in this encounter Additional Health Concerns Assessment Noted Time PHQ-9 Depression Total Score: 16 024 8:31 AM MARINE ENGINEERING PROFESSOR documented as of this encounter Care Teams Day Care Teacher Relationship Specialty Start Date End Date Liliana Rodriguez APRN, C.N.P., D.N.P. [address] [place] [phone] PCP - General 10/01/22 documented as of this encounter
--- OUTSIDE RECORDS SUMMARY | 2023-08-02 03:06 | XMS_ITS | Encounter Summary ---
Author Name Unknown Organization [facility] Address [address] [place] [address] Care Team Providers Care Plant Engineering Supervisor Name Role Phone Liliana Rodriguez APRN, C.N.P., D.N.P. P [facility] Care Provider Reason for Referral * Outpatient (Routine) - Pending Review Specialty Diagnoses / Procedures Referred By Contac t Referred To Contact Occupational Medicine Diagnoses Sprain Ankle Initial Right Ambar Sarmiento APRN, C.N.P., D.N.P. [address] [place] [address] [facility] Region Referral ID Status Reason Start Date Expiration Date V isits Requested Visits Authorized [id number] Pending Review 07/23/2023 01/21/2025 1 1 * Outpatient (Routine) - Pending Review Specialty Diagnoses / Procedures Referred By Contac t Referred To Contact Diagnoses Pain Ankle Right Procedures DX Ankle Right 3+ Views Ambar Sarmiento APRN, C.N.P., D.N.P. [address] [place] [address] [facility] Region Referral ID Status Reason Start Date Expiration Date V isits Requested Visits Authorized [id number] Pending Review 07/23/2023 07/22/2024 1 1 * Outpatient (Routine) - Pending Review Specialty Diagnoses / Procedures Referred By Kurt silva Referred To Contact Diagnoses Pain Foot Right Procedures DX Foot Right 3+ Views Ambar Sarmiento APRN, C.N.P., D.N.P. [address], [place] [address] [facility] Referral ID Status Reason Start Date Expiration Date V isits Requested Visits Authorized [id number] Pending Review 07/23/2023 07/22/2024 1 1 Reason for Visit * Reason Comments Foot Injury 07/20 slipped on [address] rs. Right foot injury with mild swelling and palpable pedal pulses * Appointment Request (Routine) - Closed Specialty Diagnoses / Procedures Referred By Kurt silva Referred To Contact Family Medicine Referral ID Status Reason Start Date Expiration Date Visits Re quested Visits Authorized [id number] Closed 07/23/2023 07/22/2024 1 1 Encounter Details Date Type Department Care Team (Late st Contact Info) Description 07/23/2023 6:00 PM CDT Office Visit Department of Family Medicine, [facility], in [place], [place] [address] [phone] Ambar Sarmiento APRN, C.N.P., D.N.P. [address], [place] [address] Pain Ankle Right (Primary Dx); Pain Foot Right; Sprain Ankle Initial Right Social History Tobacco Use Types Packs/Day Years [...] week 12/15/2020 How often do you attend buddhist or anabaptist serv ices? Never 12/15/2020 Do you belong to any clubs o r organizations such as buddhist groups, unions, fraternal or athletic groups, or [...] Answer Date Recorded PHQ-2 Score 4 05/22/2023 [facility] - Occupational Stress [...] place to sleep or slept in a chcf (including now)? No 12/15/2020 Depression Answer Date [...] PM CDT documented as of this encounter Last Filed Vital Signs Vital Sign Reading Time Taken Comments Blood Pressure 130/87 07/23/2023 5:32 PM CDT Pulse 90 07/23/2023 5:32 PM CDT Temperature - - Respiratory Rate - - Oxygen Saturation - - Inhaled Oxygen Concentration - - Weight 121 kg (266 lb 15.6 oz) 07/23/2023 5:32 P M CDT Height - - Body Mass Index 39.23 05/22/2023 7:57 AM FIELD SEISMOLOGIST documented in this encounter Patient Instructions * Patient Instructions* Ambar Sarmiento APRN, C.N.P., D.N.P. - 07/23/2023 6:00 PM CDT Ice and elevate leg 3 to 4 times a day for 20 minute for the next 3 days Anti-inflammatory such as naproxen or ibuprofen. May use 600 mg of ibuprofen every 6 hours. Naproxen per bottle instructions Ankle brace for the next 2 weeks when up and active. documented in this encounter Progress Notes * Ambar Sarmiento APRN, C.N.P., D.N.P. - 07/23/2023 6:00 PM CDT SUBJECTIVE CHIEF COMPLAINT / REASON FOR VISIT Felix Ingram is a 43 y.o. male who presents for evaluation of Foot Injury (07/20 slipped on stairs. Right foot injury with mild swelling and palpable pedal pulses). HISTORY OF PRESENT ILLNESS Felix is a pleasant 43-year-old male who is seen today for evaluation of right foot and ankle pain. Patient slipped on the stairs and rolled his ankle on 07/21/2023. He notes pain and swelling in the since that time. He is having trouble going up and downstairs, however is able to weightbear without significant discomfort. 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 The following portions of the patient's history were reviewed and updated as appropriate: allergies, current medications, family history, medical history, social history, surgical history, and problem list. OBJECTIVE PHYSICAL EXAM Vitals and nursing note reviewed. Constitutional General: He is not in acute distress. Appearance: Normal appearance. He is not ill-appearing, toxic-appearing or diaphoretic. HENT Nose: Nose normal. Eyes Extraocular Movements: Extraocular movements intact. Conjunctiva/sclera: Conjunctivae normal. Pupils: Pupils are equal, round, and reactive to light. Cardiovascular Rate and Rhythm: Normal rate. Pulmonary Effort: Pulmonary effort is normal. Musculoskeletal Cervical back: Normal range of motion. Right ankle: Swelling and ecchymosis present. Tenderness present over the lateral malleolus. Decreased range of motion. Anterior drawer test negative. Normal pulse. Right foot: Tenderness present. Skin General: Skin is warm and dry. Neurological General: No focal deficit present. Mental Status: He is alert and oriented to person, place, and time. ASSESSMENT / PLAN #1 Pain Ankle Right - DX Ankle Right 3+ Views; Future; Expected date: 07/23/2023 #2 Pain Foot Right - DX Foot Right 3+ Views; Future; Expected date: 07/23/2023 #3 Sprain Ankle Initial Right - Occupational Medicine - General consult (clinic); Future; Expected date: 08/06/2023 X-ray of ankle and foot are negative for fracture or dislocation. X-ray results were discussed withpatient in clinic. Symptoms and exam are suggestive of an ankle sprain. Patient was provided with aAircast in clinic to support ankle. Rice protocol discussed. Recommend use of anti-inflammatory such as ibuprofen or naproxen. Patient was provided with work restrictions as he has to do stairs multiple times per day and this aggravate symptoms. Recommend follow up in clinic with any new or worsening symptoms or if symptoms do not seem to be improving in the next 2 weeks. Patient's questions wereanswered to the best of my ability states understanding of plan. documented in this encounter Plan of Treatment Upcoming Encounters Date Type Department Care Team (Late st Contact Info) Description 08/20/2023 8:00 AM CDT Office Visit Department of Family Medicine, [facility], [address] [place] [address] Jerry-Liliana Cardozo APRN, C.N.P., D.N.P. [address] [place] [address] Scheduled Referrals Name Type Priority Associated Diagnoses Order Schedule Occupational Medicine - General consult (clinic) Outpatient Referral Routine Sprain Ankle Initial Right Expected: 08/06/2023, Expires: 10/21/2024 documented as of this encounter Goals Goal Patient Goal Type Associated Problems Recent Progress Patient-Stated? Author Self Management of DM General On track( 021 1:57 PM CDT) Arelis Causey, R.N. Note: DIABETES TYPE 2 EAT WELL [...] control General On track( 022 1:18 PM FIELD SEISMOLOGIST) Yes Arelis Mckeon R.N. Note: He would like to get stronger, Keep his diabetes managed well Wean off the oxygen when he is able documented as of this encounter Results * DX Foot Right [...] C.N.P., D.N.P. IMG DI AGNOSTIC IMAGING PROCEDURES * DX Ankle [...] this encounter Visit Diagnoses Diagnosis Pain Ankle Right- Primary Pain Foot Right Sprain Ankle Initial Right Pain Ankle Right Pain Foot Right documented in this encounter Additional Health Concerns Assessment Noted Time PHQ-9 Depression Total Score: 16 05/22/ 024 8:31 AM FIELD SEISMOLOGIST documented as of this encounter Care Teams Plant Engineering Supervisor Relationship Specialty Start Date End Date Liliana Rodriguez APRN, C.N.PMike, D.N.P. [address] [place] [address] PCP - General 10/01/22 documented as of this encounter
--- OUTSIDE RECORDS SUMMARY | 2023-08-02 03:06 | XMS_ITS | Encounter Summary ---
Author Name Unknown Organization [facility] Address [address] [place] [address] Care Team Providers Care Boilermaker Ship Name Role Phone Liliana Rodriguez APRN, C.N.PMike, D.N.P. P [place] Care Provider Reason for Referral * Outpatient (Routine) - Authorized Specialty Diagnoses / Procedures Referred By Kurt silva Referred To Contact Family Medicine Liliana Rodriguez APRN C.N.PMike, D.N.P. [address] [place] [address] [facility] Referral ID Status Reason Start Date Expiration Date V isits Requested Visits Authorized [id number] Authorized 05/22/2023 11/20/2024 1 1 ENSATION ADMINISTRATOR * Specialty Diagnoses / Procedures Referred By Contkayla t Referred To Contact Liliana Rodriguez APRN C.N.PMike, D.N.P. [address], [place] [address] [facility] Region Referral ID Status Reason Start Date Expiration Date Visits Re quested Visits Authorized ENSATION ADMINISTRATOR * Outpatient (Routine) - Closed Specialty Diagnoses / Procedures Referred By Kurt t Referred To Contact Pharmacy Diagnoses Diabetes Mellitus Type 2 Hyperglycemia (HCC) Liliana Rodriguez APRN, C.N.P., D.N.P. [address] [place] [address] [facility] Region Referral ID Status Reason Start Date Expiration Date Visits Re quested Visits Authorized [id number] Closed 05/22/2023 11/20/2024 1 1 ENSATION ADMINISTRATOR * Outpatient (Routine) - Authorized Specialty Diagnoses / Procedures Referred By Kurt silva Referred To Contact Endocrinology Diagnoses Diabetes Mellitus Type 2 Hyperglycemia (HCC) Liliana Rodriguez APRN C.N.P., D.N.P. [address] [address] [facility] Region Referral ID Status Reason Start Date Expiration Date V isits Requested Visits Authorized [id number] Authorized 05/22/2023 11/20/2024 1 1 ENSATION ADMINISTRATOR Reason for Visit * Reason Comments Follow-up Follow up from labs yesterday, refill meds; Blood sugars are really high in 500 range; had Levimir previously and now it is covered by insurance and this one worked well for patient * Outpatient (Routine) - Closed Specialty Diagnoses / Procedures Referred By Kurt t Referred To Contact Family Medicine Liliana Rodriguez APRN, C.N.P., D.N.P. [address] [place] [phone] [facility] Region Referral ID Status Reason Start Date Expiration Date Visits Re quested Visits Authorized [id number] Closed 05/14/2023 11/12/2024 1 1 Encounter Details Date Type Department Care Team (Late st Contact Info) Description 05/22/2023 8:00 AM COMPENSATION ADMINISTRATOR Office Visit Department of Family Medicine, [facility], in [place], [place] [address] [facility] [phone] Liliana Rodriguez APRN, C.N.P., D.N.P. [address] [place] [address] Diabetes Mellitus Type 2 Hyperglycemia (HCC) (Primary Dx); Hyperlipidemia Mixed; Anxiety Generalized Disorder; Diabetes Mellitus Type 2 Without Complication (HCC); Microalbuminuria; Depression Major Recurrent Moderate (HCC); Morbid Obesity Body Mass Index >= 35 with Comorbid Condition (HCC); Inadequate Housing Unspecified Social History Tobacco Use Types Packs/Day Years [...] week 12/15/2020 How often do you attend rastafarian or oriental orthodox serv ices? Never 12/15/2020 Do you belong to any clubs o r organizations such as rastafarian groups, unions, fraternal or athletic groups, or [...] Answer Date Recorded PHQ-2 Score 4 05/22/2023 [facility] - Occupational Stress Questionnaire Answer [...] place to sleep or slept in a retirement (including now)? No 12/15/2020 Depression Answer Date [...] Sign Reading Time Taken Comments Blood Pressure 126/82 05/22/2023 7:57 AM COMPENSATION ADMINISTRATOR Pulse 105 05/22/2023 7:57 AM COMPENSATION ADMINISTRATOR Temperature 35.8 ??C (96.4 ??F) 05/22/2023 7:57 AM CS T Respiratory Rate 16 05/22/2023 7:57 AM COMPENSATION ADMINISTRATOR Oxygen Saturation - - Inhaled Oxygen Concentration - - Weight 123 kg (271 lb 7.9 oz) 05/22/2023 7:57 AM COMPENSATION ADMINISTRATOR Height 175.7 cm (5' 9.17) 05/22/2023 7:57 AM CS T Body Mass Index 39.89 05/22/2023 7:57 AM COMPENSATION ADMINISTRATOR documented in this encounter Progress Notes * Liliana Rodriguez APRN, C.N.P., D.N.P. - 05/22/2023 8:00 AM COMPENSATION ADMINISTRATOR SUBJECTIVE CHIEF COMPLAINT / REASON FOR VISIT Felix Ingram is a 43 y.o. male who presents for evaluation of Follow-up (Follow up from labs yesterday, refill meds; Blood sugars are really high in 500 range; had Levimir previously and now it is covered by insurance and this one worked well for patient). HISTORY OF PRESENT ILLNESS Felix is a 43-year-old male who presents for follow up to discuss labs and medication refill. PMHdiabetes type 2-history of poorly controlled type 2 diabetes , hyperlipidemia, anxiety, depression.A1c a day ago 11.0 and patient reports blood sugars are really high in 500 range the patient has not followed up with endocrinology, pharmacist or diabetic nurse educator. He reports he does not have time to take off from work how do you expect me to have time to take off from work for all thoseappointments?!When asked about healthy meals I live in a hotel I can't afford to cook my own meals I have to go to restaurants to eat. I have a lot of recipes if I had a place to stay with the stove and everything I would be able to cook those recipes Patient lives in a hotel where he paced 1600 dollars per month and states makes it challenging to cook healthy meals thus he relies on fast foods and restaurant pickups. Felix reports he is currently taking NovoLog 15 units daily, 5 units 3 times a day. He is also taking Lantus 25 units at bedtime, and continues with metformin a 1000 mg b.i.d.. He reports he does not frequently check blood sugars but when he does they are elevated. Felix reports when he runs out of medications he has not inclined to refill I do not get a lot of time off from work so I do not have time to stopped pick anything up! OBJECTIVE Vitals: 05/22/23 0757 BP: 126/82 BP Location: Right arm Patient Position: Sitting Cuff Size: Regular Pulse: 105 Resp: 16 Temp: (!) 35.8 ??C TempSrc: Temporal Weight: 123 kg Height: 175.7 cm Body mass index is 39.89 kg/m??. PHYSICAL EXAMINATION Physical Exam ASSESSMENT / PLAN #1 Diabetes Mellitus Type 2 Hyperglycemia (HCC) #2 Anxiety Generalized Disorder #3 Depression #4 Inadequate housing unspecified #5 Morbid obesity body mass index greater than equal to 35 with comorbid condition(HCC) PHQ-9 today=16 Koffi 7 today=13 Felix denies suicidal ideation or intent to self-harm, self-injurious behavior or homicidal ideation. Refill Lexapro and added BuSpar to regimen. Expanded on the importance of self-care and tight blood sugar control to have overall good health and longevity. Patient reports he has been seeing a therapist through [facility] weekly. States he had taken a break from doing so and started up again last week. He does not believe mental health is affecting self-care even though this mortgage underwriter disagrees. -patient was encouraged to schedule an eye exam, dental visit, foot check completed today in clinic. Reiterated risk associated with a poorly managed diabetes including vision loss dental issues, neuropathy cardiovascular issues kidney failure, limb loss. -referred to endocrinology, diabetic nurse educator, pharmacist, -refilled NovoLog, Lantus, metformin, atorvastatin and added Trulicity to regimen. encouraged patient to monitor blood sugar daily. -encouraged to schedule an an annual physical. -living situation is contributing to difficulty matching diabetes and mental health. -Encouraged patient to continue working with therapist and [facility] regular [facility] within his budget. #6 Hyperlipidemia Mixed -refill Lipitor and increased to 40 mg daily. Patient was encouraged to engage in 30 minutes of moderate activity each day, to eat foods low in saturated fat, closest to their natural forms, to incorporate fish, fruits and vegetables and to daily diet we discussed the Mediterranean diet and importance of regular exercise to lower BMI which will also impact mental health and diabetes. #7 Microalbuminuria -patient to get lab check this morning. -he has not fasting so unable to get a fasting blood glucose. Liliana Rodriguez APRN, C.N.P., D.N.P. ENSATION ADMINISTRATOR documented in this encounter Plan of Treatment Upcoming Encounters Date Type Department Care Team (Late st Contact Info) Description 08/20/2023 8:00 AM CDT Office Visit Department of Family Medicine, [facility], in [address] [phone] Liliana Rodriguez APRN, C.N.P., D.N.P. [address] [address] Scheduled Referrals Name Type Priority Associated Diagnoses Orde r Schedule Endocrinology - General consult (clinic) Outpatient Referral Routine Diabetes Mellitus Type 2 Hyperglycemia (HCC) Expected: 05/22/2023 (Approximate), Expires: 08/19/2024 Pharmacy - Medication therapy management consult (clinic) Outpatient Referral Routine Diabetes Mellitus Type 2 Hyperglycemia (HCC) Expected: 05/22/2023 (Approximate), Expires: 08/19/2024 Nutrition - batch mixer operator visit (clinic) Outpatient Referral Routine Diabetes Mellitus Type 2 Hyperglycemia (HCC) Expected: 05/22/2023, Expires: 05/22/2024 Family Medicine office visit (clinic) Outpatient Referral Routine Expected: 08/20/2023 (Approximate), Expires: 08/19/2024 documented as of this encounter Goals Goal [...] control General On track( 022 1:18 PM COMPENSATION ADMINISTRATOR) Yes Arelis Mckeon R.N. Note: He would like to get stronger, Keep his diabetes managed well Wean off the oxygen when he is able documented as of this encounter Results * (ABNORMAL) Albumin, Random, Urine (05/22/2023 8:42 AM COMPENSATION ADMINISTRATOR) Microalbumin 20.0 mg/L 05/22/2023 2:47 PM COMPENSATION ADMINISTRATOR OWAT Creatinine 17 mg/dL 05/22/2023 2:47 PM COMPENSATION ADMINISTRATOR OWAT Albumin/Creatinin e Ratio 118(H) <17 mg/g 05/22/2023 2:47 PM COMPENSATION ADMINISTRATOR OWAT Urine (Urine, Midstream) 05/22/2023 8:42 AM COMPENSATION ADMINISTRATOR 05/22/2023 1:17 PM COMPENSATION ADMINISTRATOR Liliana Rodriguez APRN, C.N.P., D .N.P. LAB URINE ORDERABLES [facility] [address] [place] [address], [facility] [place] [address] [place] [address] documented in this encounter Visit Diagnoses Diagnosis Diabetes Mellitus Type 2 Hyperglycemia (HCC)- Primary Hyperlipidemia Mixed Anxiety Generalized Disorder Diabetes Mellitus Type 2 Without Complication (HCC) Microalbuminuria Depression Major Recurrent Moderate (HCC) Morbid Obesity Body Mass Index >= 35 with Comorbid Condition (HCC) Inadequate Housing Unspecified documented in this encounter Additional Health Concerns Assessment Noted Time PHQ-9 Depression Total Score: 16 024 8:31 AM COMPENSATION ADMINISTRATOR documented as of this encounter Care Teams Boilermaker Ship Relationship Specialty Start Date End Date ShawandaLiliana Cardozo APRN, C.N.P., D.N.P. [address] [place] [address] PCP - General 10/01/22 documented as of this encounter
--- OUTSIDE RECORDS SUMMARY | 2023-08-02 03:06 | XMS_ITS | Encounter Summary ---
Author Name Unknown Organization [facility] Address [address] [place] [address] Care Team Providers Care Reading Efficiency Course Director Name Role Phone Liliana Rodriguez APRN, C.N.P., D.N.P. P [facility] Care Provider Encounter Details Date Type Department Care Team (Late st Contact Info) Description 05/21/2023 8:20 AM CIRCUS RIDER - 05/21/2023 11:59 PM [facility] Hospital Encounter Department of Laboratory Medicine in [address] [phone] Liliana Rodriguez APRN, C.N.P., D.N.P. [address] [phone] Diabetes Mellitus Type 2 Hyperglycemia (HCC) Discharge Disposition: Home or Self Care Social [...] week 12/15/2020 How often do you attend alevism or adventism serv ices? Never 12/15/2020 Do you belong to any clubs o r organizations such as alevism groups, unions, fraternal or athletic groups, or [...] Answer Date Recorded PHQ-2 Score 4 05/22/2023 [facility] - Occupational Stress Questionnaire Answer Date Recorded [...] place to sleep or slept in a snf (including now)? No 12/15/2020 Depression Answer Date [...] Sig Dispensed Refills Start Date End Date blood glucose ctl high,nml,low solutionIndications:Devora betes Mellitus Type 2 Hyperglycemia (HCC) Glucose control solution provides an easy way to ensure accurate blood glucose testing. 1 each 10/15/2022 blood sugar diagnostic stripsIndications:Diabe tenzin Mellitus Type 2 Hyperglycemia (HCC) 3 test daily. 270 test 3 10/15/2022 10/15/2023 blood-glucose meter miscIndications:Diabete s Mellitus Type 2 Hyperglycemia (HCC) Test as directed for diabetes control. 1 each 10/15/2022 ibuprofen (ADVIL,MOTRIN) 200 mg tablet Take 3 tablets (600 mg total) by mouth every 8 (eight) hours as needed. 03/15/2020 UltiCare Pen Needle 31 gauge x 3/16 needle USE WITH INSULIN DIRECTED 400 each 3 01/29/2023 atorvastatin (LIPITOR) 20 mg tabletIndications:Hyper lipidemia Mixed Take 1 tablet (20 mg total) by mouth daily. 90 tablet 3 02/22/2023 05/22/2023 escitalopram (LEXAPRO) 20 mg tabletIndications:Anxie ty Generalized Disorder Take 1 tablet (20 mg total) by mouth daily. 90 tablet 3 02/22/2023 05/22/2023 flash glucose scanning reader (FREESTYLE MONO 14 DAY READER [facility]) 1 applicator by subdermal route 3 (three) times a day. 01/16/2022 06/26/2023 insulin aspart U-100 (NovoLOG FlexPen) 100 unit/mL (3 mL) injectionIndications:Di abetes Mellitus Type 2 Hyperglycemia (HCC),Price Economist Use Of Insulin Active (HCC) Inject 5 Units under the skin 3 (three) times a day with meals. 15 mL 2 10/15/2022 06/26/2023 insulin glargine (Lantus Solostar U-100 Insulin) 100 unit/mL (3 mL) injectionIndications:Di abetes Mellitus Type 2 Hyperglycemia (HCC) Inject 10 Units under the skin at bedtime. Injected daily as directed. 9 mL 3 10/15/2022 05/22/2023 lancets 1 each 3 (three) times a day. 180 each 3 02/22/2023 06/26/2023 lancets 3 (three) times a day. as directed 02/22/2023 06/26/2023 lisinopriL (PRINIVIL,ZESTRIL) 2.5 mg tabletIndications:Diabe tenzin Mellitus Type 2 Without Complication (HCC) TAKE ONE TABLET BY MOUTH AT BEDTIME. HOLD FOR SYSTOLIC BLOOD PRESSURE (TOP NUMBER) LESS THAN 110. 90 tablet 04/05/2022 05/22/2023 metFORMIN (GLUCOPHAGE) 1,000 mg tabletIndications:Diabe tenzin Mellitus Type 2 Hyperglycemia (HCC) Take 1 tablet (1,000 mg total) by mouth 2 (two) times a day with meals. 180 tablet 3 02/22/2023 05/22/2023 documented as of this encounter Plan of Treatment Upcoming Encounters Date Type Department Care Team (Late st Contact Info) Description 08/20/2023 8:00 AM CDT Office Visit Department of Family Medicine, [facility], in [place], [place] [address] [facility] [place] [address] JerryLiliana Cardozo APRN, C.N.P., D.N.P. 0 [facility] [place] [address] documented as of this encounter Goals Goal [...] control General On track( 022 1:18 PM CIRCUS RIDER) Yes Arelis Mckeon R.N. Note: He would like to get stronger, Keep his diabetes managed well Wean off the oxygen when he is able documented as of this encounter Procedures Procedure Name Priority Date/Time Associated Diagnosis Comments HEMOGLOBIN A1C, B Routine 05/21/2023 8:5 1 AM CIRCUS RIDER Diabetes Mellitus Type 2 Hyperglycemia (HCC) documented in this encounter Results * (ABNORMAL) Hemoglobin A1c (05/21/2023 8:51 AM CIRCUS RIDER) Hemoglobin A1c, B 11.0(H) 4.2 - 5.6 % 05/21/2023 2:04 PM CIRCUS RIDER OWAT Comment: Hemoglobin A1c values greater than or equal to 6.5 percent are diagnostic for diabetes mellitus. ??Diagnosis should be confirmed by repeat testing. ??In diabetic patients, HbA1c goals should be discussed with healthcare provider. Blood (Blood, Venous) 05/21/2023 8:51 AM CIRCUS RIDER 05/21/2023 1:45 PM CIRCUS RIDER Liliana Rodriguze APRN, C.N.P., D .N.P. LAB BLOOD ADD-ON [facility] [address] [place] [address], [facility] [place] [address] [place] [address] documented in this encounter Visit Diagnoses Diagnosis Diabetes Mellitus Type 2 Hyperglycemia (HCC) documented in this encounter Additional Health Concerns Assessment Noted Time PHQ-9 Depression Total Score: 18 023 8:25 AM CIRCUS RIDER documented as of this encounter Care Teams Reading Efficiency Course Director Relationship Specialty Start Date End Date Miles-Liliana Cardozo APRN, C.N.P., D.N.P. [address] [place] [address] PCP - General 10/01/22 documented as of this encounter
--- OUTSIDE RECORDS SUMMARY | 2023-08-02 03:06 | XMS_ITS | Encounter Summary ---
Author Name Unknown Organization [facility] Address [address] [place] [address] Care Team Providers Care Geotechnical Operating Engineer Name Role Phone Liliana Rodriguez APRN, C.N.P., D.N.P. P [facility] Care Provider Reason for Visit * Reason Onset Date Comments Quality 07/01/2023 D5 Encounter Details Date Type Department Care Team (Late st Contact Info) Description 07/01/2023 Clinical Communication Department of Family Medicine, [facility], in [place] [address] [place] [address] Dayana Adams, R.N. Quality (D5) Social History Tobacco Use Types Packs/Day Years [...] week 12/15/2020 How often do you attend orthodox or synagogue serv ices? Never 12/15/2020 Do you belong to any clubs o r organizations such as orthodox groups, unions, fraternal or athletic groups, or [...] Answer Date Recorded PHQ-2 Score 4 05/22/2023 [facility] - Occupational [...] place to sleep or slept in a penitentiary (including now)? No 12/15/2020 Depression Answer Date [...] PM CDT documented as of this encounter Plan of Treatment Upcoming Encounters Date Type Department Care Team (Late st Contact Info) Description 08/20/2023 8:00 AM CDT Office Visit Department of Family Medicine, [facility], in [place] [address] [address] Liliana Rodriguez APRN, C.N.P., D.N.P. [address] [place] [address] Scheduled Orders Name Type Priority Associated Diagnoses Orde r Schedule Hemoglobin A1c Lab Routine Diabetes Mellitus Type 2 Hyperglycemia (HCC) Expected: 08/19/2023, Expires: 09/30/2024 documented as of this encounter Goals Goal [...] control General On track( 022 1:18 PM ASSOCIATE PROPERTY MANAGER) Yes Arelis Mckeon R.N. Note: He would like to get stronger, Keep his diabetes managed well Wean off the oxygen when he is able documented as of this encounter Visit Diagnoses Diagnosis Diabetes Mellitus Type 2 Hyperglycemia (HCC)- Primary documented in this encounter Additional Health Concerns Assessment Noted Time PHQ-9 Depression Total Score: 16 024 8:31 AM ASSOCIATE PROPERTY MANAGER documented as of this encounter Care Teams Geotechnical Operating Engineer Relationship Specialty Start Date End Date Liliana Rodriguez APRN, C.N.P., D.N.P. [address] [place] [address] PCP - General 10/01/22 documented as of this encounter
--- OUTSIDE RECORDS SUMMARY | 2023-08-02 03:06 | XMS_ITS | Encounter Summary ---
Author Name Unknown Organization [facility] Address [address] [place] [address] Care Team Providers Care Fur Dry Cleaner Hand Name Role Phone Liliana Rodriguez APRN, C.N.P., D.N.P. P [facility] Care Provider Encounter Details Date Type Department Care Team (Late st Contact Info) Description 05/22/2023 8:40 AM CAR SHAKEOUT OPERATOR - 05/22/2023 11:59 PM [facility] Hospital Encounter Department of Laboratory Medicine in [address] [phone] Liliana Rodriguez APRN, C.N.P., D.N.P. [address] [phone] Diabetes Mellitus Type 2 Hyperglycemia (HCC) Discharge [...] How often do you attend restorationism or nondenominational serv ices? Never 12/15/2020 Do you belong [...] Answer Date Recorded PHQ-2 Score 4 05/22/2023 [facility] - Occupational Stress Questionnaire Answer Date [...] Date End Date atorvastatin (LIPITOR) 20 mg tabletIndications:Hyper lipidemia Mixed Take 2 tablets (40 mg total) by mouth daily. 180 tablet 3 05/22/2023 05/21/2024 blood glucose ctl high,nml,low solutionIndications:Devora betes Mellitus Type 2 Hyperglycemia (HCC) Glucose control solution provides an easy way to ensure accurate blood glucose testing. 1 each 10/15/2022 blood sugar diagnostic stripsIndications:Diabe tenzin Mellitus Type 2 Hyperglycemia (HCC) 3 test daily. 270 test 3 10/15/2022 10/15/2023 blood-glucose meter miscIndications:Diabete s Mellitus Type 2 Hyperglycemia (HCC) Test as directed for diabetes control. 1 each 10/15/2022 busPIRone (BUSPAR) 5 mg tablet Take 1 tablet (5 mg total) by mouth 3 (three) times a day. 180 tablet 3 05/22/2023 escitalopram (LEXAPRO) 20 mg tabletIndications:Anxie ty Generalized Disorder Take 1 tablet (20 mg total) by mouth daily. 90 tablet 3 05/22/2023 ibuprofen (ADVIL,MOTRIN) 200 mg tablet Take 3 tablets (600 mg total) by mouth every 8 (eight) hours as needed. 03/15/2020 insulin glargine (Lantus Solostar U-100 Insulin) 100 unit/mL (3 mL) injectionIndications:Di abetes Mellitus Type 2 Hyperglycemia (HCC) Inject 25 Units under the skin at bedtime. Injected daily as directed. 22.5 mL 3 05/22/2023 05/21/2024 lisinopriL (PRINIVIL,ZESTRIL) 2.5 mg tabletIndications:Diabe tenzin Mellitus Type 2 Without Complication (HCC) Take 1 tablet (2.5 mg total) by mouth daily. 90 tablet 3 05/22/2023 metFORMIN (GLUCOPHAGE) 1,000 mg tabletIndications:Diabe tenzin Mellitus Type 2 Hyperglycemia (HCC) Take 1 tablet (1,000 mg total) by mouth 2 (two) times a day with meals. 180 tablet 3 05/22/2023 05/21/2024 UltiCare Pen Needle 31 gauge x 3/16 needle USE WITH INSULIN DIRECTED 400 each 3 01/29/2023 dulaglutide (Trulicity) 0.75 mg/0.5 mL injection Inject 0.5 mL (0.75 mg total) under the skin every 7 (seven) days. 6 mL 2 05/22/2023 06/26/2023 flash glucose scanning reader (FREESTYLE MONO 14 DAY READER MIS) 1 applicator by subdermal route 3 (three) times a day. 01/16/2022 06/26/2023 insulin aspart U-100 (NovoLOG FlexPen) 100 unit/mL (3 mL) injectionIndications:Di abetes Mellitus Type 2 Hyperglycemia (HCC),Long-Term Use Of Insulin Active (HCC) Inject 5 Units under the skin 3 (three) times a day with meals. 15 mL 2 10/15/2022 06/26/2023 lancets 1 each 3 (three) times a day. 180 each 3 02/22/2023 06/26/2023 lancets 3 (three) times a day. as directed 02/22/2023 06/26/2023 documented as of this encounter Plan of Treatment Upcoming Encounters Date Type Department Care Team (Late st Contact Info) Description 08/20/2023 8:00 AM CDT Office Visit Department of Family Medicine, [facility], in [place], [place] [address] [place] [address] JerryLiliana Cardozo APRN, C.N.P., D.N.P. [address] [phone] documented as of this encounter Goals Goal [...] control General On track( 022 1:18 PM CAR SHAKEOUT OPERATOR) Yes Arelis Mckeon R.N. Note: He would like to get stronger, Keep his diabetes managed well Wean off the oxygen when he is able documented as of this encounter Procedures Procedure Name Priority Date/Time Associated Diagnosis Comments ALBUMIN, RANDOM, U Routine 05/22/2023 8: 42 AM CAR SHAKEOUT OPERATOR Diabetes Mellitus Type 2 Hyperglycemia (HCC) documented in this encounter Results * (ABNORMAL) Albumin, Random, Urine (05/22/2023 8:42 AM CAR SHAKEOUT OPERATOR) Microalbumin 20.0 mg/L 05/22/2023 2:47 PM CAR SHAKEOUT OPERATOR [facility] Creatinine 17 mg/dL 05/22/2023 2:47 PM CAR SHAKEOUT OPERATOR [facility] Albumin/Creatinin e Ratio 118(H) <17 mg/g 05/22/2023 2:47 PM CAR SHAKEOUT OPERATOR [facility] Urine (Urine, Midstream) 05/22/2023 8:42 AM CAR SHAKEOUT OPERATOR 05/22/2023 1:17 PM CAR SHAKEOUT OPERATOR Liliana Rodriguez APRN, C.N.P., D .N.P. LAB URINE ORDERABLES [facility] [address] [place] [address], [facility] [place] [address] [place] [address] documented in this encounter Visit Diagnoses Diagnosis Diabetes Mellitus Type 2 Hyperglycemia (HCC) documented in this encounter Additional Health Concerns Assessment Noted Time PHQ-9 Depression Total Score: 16 024 8:31 AM CAR SHAKEOUT OPERATOR documented as of this encounter Care Teams Fur Dry Cleaner Hand Relationship Specialty Start Date End Date Liliana Rodriguez APRN, C.N.P., D.N.P. [address] [place] [phone] PCP - General 10/01/22 documented as of this encounter
--- OUTSIDE RECORDS SUMMARY | 2023-08-02 03:06 | XMS_ITS | Encounter Summary ---
Author Name Unknown Organization [facility] Address [address] [place] [address] Care Team Providers Care Glued Wood Tester Name Role Phone Liliana Rodriguez APRN, C.N.PMike, D.N.P. P [facility] Care Provider Reason for Referral * Outpatient (Routine) - Closed Specialty Diagnoses / Procedures Referred By Kurt t Referred To Contact Family Medicine Liliana Rodriguez APRN, C.N.PMike, D.N.P. [address], [place] [address] [facility] Region Referral ID Status Reason Start Date Expiration Date Visits Re quested Visits Authorized [id number] Closed 05/14/2023 11/12/2024 1 1 EL SPECIALIST Reason for Visit * Reason Onset Date Comments Quality 05/14/2023 D5 Encounter Details Date Type Department Care Team (Late st Contact Info) Description 05/14/2023 Clinical Communication Department of Family Medicine, [facility], in [address] [phone] Dayana Adams R.N. Quality (D5) Social History Tobacco Use [...] How often do you attend congregation or druze serv ices? Never 12/15/2020 Do you belong [...] Date Recorded PHQ-2 Score 4 05/22/2023 [facility] - Occupational [...] place to sleep or slept in a long term (including now)? No 12/15/2020 Depression Answer Date [...] PM CDT documented as of this encounter Miscellaneous Notes * Telephone Encounter - Dayana Adams R.N. - 05/14/2023 4:31 PM VESSEL SPECIALIST SUBJECTIVE CHIEF COMPLAINT / REASON FOR CALL Quality (D5) In reviewing the patient's diabetic metrics, I have found that the patient is not meeting all of their goals. Please note: A1C control not met and Patient is due for A1C. Contacted patient, call response diabetes: unable to reach. Left message for patient to return callto clinic. Does the patient need to speak to nursing? no Action needed: Janak, when you were last seen by your provider, Liliana Rodriguez, it was recommended to follow up with endocrinology and a nurse perioperative educator. Please assist in scheduling. EL SPECIALIST documented in this encounter Plan of Treatment Upcoming Encounters Date Type Department Care Team (Late st Contact Info) Description 08/20/2023 8:00 AM CDT Office Visit Department of Family Medicine, [facility], in [address] [phone] Liliana Rodriguez APRN, C.N.P., D.N.P. [address] [phone] Scheduled Referrals Name Type Priority Associated Diagnoses Order Schedule Family Medicine office visit (clinic) Outpatient Referral Routine 1 Occurrence s starting 05/14/2023 until 08/11/2024 documented as of this encounter Goals Goal [...] control General On track( 022 1:18 PM VESSEL SPECIALIST) Yes Arelis Mckeon R.N. Note: He would like to get stronger, Keep his diabetes managed well Wean off the oxygen when he is able documented as of this encounter Results * (ABNORMAL) Hemoglobin A1c (05/21/2023 8:51 AM VESSEL SPECIALIST) Hemoglobin A1c, B 11.0(H) 4.2 - 5.6 % 05/21/2023 2:04 PM VESSEL SPECIALIST [facility] Comment: Hemoglobin A1c values greater than or equal to 6.5 percent are diagnostic for diabetes mellitus. ??Diagnosis should be confirmed by repeat testing. ??In diabetic patients, HbA1c goals should be discussed with healthcare provider. Blood (Blood, Venous) 05/21/2023 8:51 AM VESSEL SPECIALIST 05/21/2023 1:45 PM VESSEL SPECIALIST Dorota Graf APRNNMichelle., D .N.P. LAB BLOOD ADD-ON [facility] [address] [place] [address], [facility] [[email or web address]] [facility] in [place] [address] [place] [address] documented in this encounter Visit Diagnoses Diagnosis Diabetes Mellitus Type 2 Hyperglycemia (HCC)- Primary documented in this encounter Additional Health Concerns Assessment Noted Time PHQ-9 Depression Total Score: 18 023 8:25 AM VESSEL SPECIALIST documented as of this encounter Care Teams Glued Wood Tester Relationship Specialty Start Date End Date Liliana Rodriguez APRN, C.N.Maritza., D.N.P. [address] [place] [phone] PCP - General 10/01/22 documented as of this encounter
== END 2023-08-02 03:10 | disposition other institution (70) ==
PROVIDERS: Emergency Provider Family Medicine
DX: F10.129 Alcohol abuse with intoxication, unspecified (principal); E11.9 Type 2 diabetes mellitus without complications
CPT/HCPCS: 99282; 99284